=== PATIENT | male | born 1930 | race Caucasian/White ===

== ENCOUNTER → 2018-03-14 | Outpatient (CLI) | payer MEDICARE, BC ==
[~2018-03-14] MED LIST: LOVA20TA PO; RAMI10CA PO
--- NOTE | 2018-03-15 10:46 | RSPPFT ---
DATE OF PROCEDURE: 03/14/18 COMMENTS: VOLUMES DYNAMIC: FVC and FEV1 mildly reduced. STATIC: FRC, RV moderately to severely increased; TLC normal. FLOWS: FEV1% moderately reduced; FEF 25-75 moderately reduced. DIFFUSION; Severely reduced. FLOW VOLUME LOOP: Pattern of variable intrathoracic airways obstruction. IMPRESSION: Moderate obstructive ventilatory defect with significant hyperinflation and a reduction in diffusion consistent with emphysema. Minimal change post-bronchodilator noted.
--- NOTE | 2018-03-23 08:54 | MB ---
cc: Michelle Cherry MD DATE: 03/14/2018 FOLLOWUP PULMONARY NOTE HISTORY: Mr. Ray underwent bronchoscopy yesterday, did well through the procedure, but post-extubation developed respiratory difficulty and distress, had to be reintubated and mechanically ventilated overnight. Followup chest x-ray revealed scattered infiltrates, but no pneumothorax. LABORATORY DATA: White count 7200, hemoglobin 11.8, platelet count 150. Arterial blood gas last night: pH was 7.19, pCO2 of 63, pO2 99. Serum chemistries were normal other than a reduction in calcium. All cultures are pending. PHYSICAL EXAMINATION: GENERAL: Today he is awake, alert, appropriately responsive, moving all 4 extremities, in no distress but still on ventilatory support. VITAL SIGNS: 97 degrees, 90/50, pulse is 70, respirations 18, and sat is 97%. NECK: Veins are flat. LUNGS: Clear. No congestion or wheezing. HEART: Regular rhythm and no harsh murmur. EXTREMITIES: No peripheral edema. ASSESSMENT AND PLAN: Mr. Ray has done well overnight but is still mechanically ventilated. I spoke to Dr. Overton and Dr. Graves, intensivists, they will wean him today and if he can be extubated will consider whether discharge later today is possible or whether or not he will need to continue inpatient therapy for probable chronic obstructive pulmonary disease and bronchospasm resulting in respiratory failure. Aerosol therapy and corticosteroids were instituted last night. Those will be continued. Further diagnostic and/or therapeutic intervention will depend on his course today. I spoke to his son, Jaziel, this morning to update him. RMD TANIYA Woods/SIDNEY , 08:39 AM , 08:53 AM
== END ==
LOC: PHRSP 07:38
PROVIDERS: ATTEND Internal Medicine
DX: J44.9 Chronic obstructive pulmonary disease, unspecified (principal)
CPT/HCPCS: 36600; 82805; 94060; 94618; 94726; 94729

== ENCOUNTER → 2018-03-21 | Outpatient (CLI) | payer MEDICARE, BC ==
[2018-03-21 10:53] LABS: HEMATOCRIT 43.2 % (39.0-51.0); HEMOGLOBIN 14.7 GM/DL (13.0-17.0); MEAN CELL VOLUME 96.8 FL (80.0-100.0); MEAN CORPUSCULAR HGB CONC 34.1 % (32.0-36.0); MEAN PLATELET VOLUME 8.1 FL (7.0-11.0); PLATELET COUNT 212 TH/MM3 (150-450); RED BLOOD COUNT 4.46 MIL/MM3 (4.50-5.90); RED CELL DISTRIBUTION WIDTH 15.5 % (11.6-17.2); WHITE BLOOD COUNT 10.2 TH/MM3 (4.0-11.0)
[2018-03-21 11:15] LABS: BICARBONATE 30.7 MEQ/L (21.0-32.0); CALCIUM 8.8 MG/DL (8.5-10.1); CREATININE 1.17 MG/DL (0.60-1.30)
--- NOTE | 2018-03-22 14:46 | EKG ---
Date Performed: 03/21/2018 Time Performed: 10:53:04 PTAGE: 87 years EKG: Sinus rhythm with first degree AV block RIGHT BUNDLE BRANCH BLOCK ABNORMAL ECG NO PREVIOUS TRACING DOCTOR: Jasmeet Kumar Interpretating Date/Time 03/22/2018 14:46:28
== END ==
LOC: CPRE 10:27
PROVIDERS: ATTEND Internal Medicine
DX: Z01.812 Encounter for preprocedural laboratory examination (principal); Z01.810 Encounter for preprocedural cardiovascular examination; R22.2 Localized swelling, mass and lump, trunk; I44.0 Atrioventricular block, first degree; I45.10 Unspecified right bundle-branch block
CPT/HCPCS: 36415; 80048; 85027; 85610; 85730; 93005

== ENCOUNTER 2018-03-22 11:24 | Inpatient (IN) | payer MEDICARE, BC ==
--- NOTE | 2018-03-21 11:34 | MB ---
cc: Michelle Cherry MD, Ryan R MD DATE: 03/22/2018 REASON FOR ADMISSION: Outpatient bronchoscopy being scheduled for next week. HISTORY OF PRESENT ILLNESS: Mr. Ray is an 87-year-old white male, a lifelong smoker who presented with right shoulder pain and a CT scan revealed a possible endobronchial lesion in the right upper lobe with adjacent soft tissue density. The patient has smoked a pack of cigarettes a day his entire adult life, currently smoking about 10 a day, trying to quit. He has mild dyspnea on exertion, but pulmonary functions are reasonably stable, in the range of 70% with mild COPD. He has had no hemoptysis. PAST MEDICAL HISTORY: Hypertension, abdominal aortic aneurysm being monitored. No prior ischemic heart disease or congestive heart failure and no significant prior surgeries. ALLERGIES: NONE. MEDICATIONS: Ramipril and Losartan. SOCIAL HISTORY: , lives alone, but his son is here and helps considerably. 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 Drinks 2 ounces of alcohol a day. REVIEW OF SYSTEMS: Appetite and weight have been stable. He has no chest pain. No chronic edema. No abdominal complaints or musculoskeletal pain. PHYSICAL EXAMINATION: GENERAL: Thin, white male in no distress. VITAL SIGNS: 97 degrees, 130/70, pulse 100, RR 18, saturation 94% on room air. HEENT: Sclerae are anicteric. Pharynx is clear. NECK: No adenopathy in the neck or supraclavicular region. CHEST: Clear, although diminished. HEART: Regular rhythm. No harsh murmur. EXTREMITIES: No edema or cyanosis. ASSESSMENT AND PLAN: Mr. Ray has a right hilar mass. PET-CT is positive with no mediastinal uptake, probable malignancy. RECOMMENDATIONS: I have suggested proceeding with a diagnostic bronchoscopy. I have explained the procedure to he and his son in simple terms so that they understand what it involves. We have also discussed the potential for complications including although not limited to anesthetic risk, the risk of bleeding or pneumothorax and also they understand it may not be a definitive diagnostic procedure. After thorough review, they are agreeable to proceed. Further diagnostic and/or therapeutic intervention will depend on results of this study. MD TANIYA Coe/SIDNEY , 09:20 AM , 09:41 AM
[~2018-03-22] VITALS: Ht 180.3 cm; Wt 73.4 kg
[2018-03-22] VITALS (9 sets, daily range): BP systolic 107–161; BP diastolic 55–76; PULSE 82–111; RESP 20; TEMP 97.8–98.4; O2SAT 94–99
[2018-03-22] MEDS ORDERED: SODIUM CHLORID 0.9% 500 ML IV PRN (12:00)
[2018-03-22] MEDS ORDERED: CHLORHEXIDINE GLUCONATE 2 % 1 PACK (2 CLOTHS) TOPICAL PRN (12:00)
[2018-03-22] MEDS ORDERED: METOPROLOL TARTRATE 25 MG TAB PO PRN (12:00)
[2018-03-22] MEDS ORDERED: LACTATED RINGER'S 1000 ML IV PRN (12:00)
[2018-03-22] MEDS ORDERED: POVIDONE IODINE 5% (ANTISEPSIS KIT) 4 APPLICATIONS EACH NARE PRN (12:00)
[2018-03-22] MEDS ORDERED: RESP: LIDOCAINE HCL 4% PF 5 ML NEB NEB SCH (13:15)
[2018-03-22] MEDS ORDERED: SODIUM CHLOR 0.45% 1000 ML INJ 1,000 ML IV ONE (13:15)
[2018-03-22] MEDS ORDERED: RESP: ALBUTEROL 2.5 MG/3 ML NEB (SCH) INH (13:15)
[2018-03-22] MEDS ORDERED: RESP: ALBUTEROL 2.5 MG/IPRATROPIUM 0.5 MG NEB (PRN) NEB (15:00)
[2018-03-22] MEDS ORDERED: PROPOFOL 1000 MG/100 ML INJ 100 ML ONE (15:19)
--- NOTE | 2018-03-22 15:34 | MR ---
cc: Michelle Cherry MD DATE: 03/22/2018 PROCEDURE PERFORMED: Bronchoscopy. INDICATION: Right upper lobe mass. PROCEDURE: After informed consent was obtained, the patient underwent diagnostic bronchoscopy with general anesthesia. Examination of the mid to distal trachea was normal. Examination of the left upper lobe was normal. Lower lobes were also normal, no endobronchial pathology. Examination of the right mainstem bronchus down to the takeoff of the right upper lobe was normal. Right middle and lower lobe orifices were also examined and unremarkable. Examination of the right upper lobe anterior segment was abnormal with mucosal irregularity and narrowing of the bronchus. No endobronchial mass was identifiable, but there was a very irregular mucosa. This area was washed extensively, submitted for cytology and cultures. Brushings were obtained as well for cytology and needle aspiration was obtained and several bronchial biopsies were taken and submitted for pathology. In summary, anterior segment of the right upper lobe is irregular, suspicious for malignancy. Multiple specimens are submitted for cytology, culture and routine pathology. He tolerated the procedure well. Only minimal bleeding. Being prepared for recovery. Michelle Cherry MD RSW/TL , 03:00 PM , 03:33 PM
[2018-03-22] MEDS ORDERED: NURSING INFORMATION XX SCH (15:45)
[2018-03-22] MEDS ORDERED: PROPOFOL 1000 MG/100 ML INJ 100 ML IV PRN (15:45)
[2018-03-22] MEDS ORDERED: CHLORHEXIDINE GLUCONATE 2 % 1 PACK (2 CLOTHS) TOP PRN (15:45)
[2018-03-22] MEDS: PROPOFOL 1000 MG/100 ML IV PRN (15:45)
[2018-03-22] MEDS ORDERED: DO NOT ADM ANY ANTICOAGULANT DRUGS PRN (15:45)
[2018-03-22] MEDS ORDERED: SODIUM CHLORIDE 0.9% FLUSH 10 ML FLUSH IV FLUSH PRN (15:45)
[2018-03-22] MEDS ORDERED: RESP: ALBUTEROL 2.5 MG/IPRATROPIUM 0.5 MG NEB (PRN) INH (15:45)
[2018-03-22] MEDS ORDERED: ACETAMINOPHEN 325 MG TAB PO PRN (15:45)
[2018-03-22] MEDS ORDERED: MORPHINE SULFATE 4 MG/ML INJ IV PUSH PRN (15:45)
[2018-03-22] MEDS: SODIUM CHLOR 0.9% 1000 ML INJ 1,000 ML IV SCH ×2 (16:00→20:55)
[2018-03-22] MEDS ORDERED: EPINEPHrine HCL (1:1000) 1 MG/ML VIAL E-TRACHE ONE (16:16)
--- NOTE | 2018-03-22 16:20 | RADRPT ---
EXAM DATE/TIME: 03/22/2018 15:45 [place] COMPARISON: No previous studies available for comparison. INDICATIONS : Post bronchoscopy. MEDICAL HISTORY : None. SURGICAL HISTORY : None. ENCOUNTER: Initial ACUITY: 1 day PAIN SCORE: Non-responsive. LOCATION: chest FINDINGS: Endotracheal tube in good position. Bilateral airspace disease, right greater than left. No pneumotho rax. No significant effusion. Heart size mildly enlarged. Tortuous aorta. CONCLUSION: 1. Bilateral airspace disease, right greater than left. Endotracheal tube in good position without pn eumothorax. Mj Dejesus MD on March 22, 2018 at 16:17 Board Certified Radiologist. This report was verified electronically.
--- NOTE | 2018-03-22 16:40 | HHI.HP ---
[facility] Service Critical Care Medicine Primary Care Physician Salvador Figueroa MD Admission Diagnosis Diagnosis: Travel History International Travel<30 Days: No Contact w/Intl Traveler <30 Da: No Traveled to Known Affected Are: No History of Present Illness HISTORY OF PRESENT ILLNESS: 87-year-old male was recently diagnosed with a right upper lobe mass and underwent bronchoscopy with biopsy by Dr. Cherry today. He tolerated procedure well was extubated postprocedure however required reintubation due to hypoxia and poor respiratory effort. Patient was placed back on mechanical ventilation and transferred to PACU. He is a lifelong smoker and has mild COPD per Dr. Jasmeet Cherry his barrel tester and drainer who discussed the case with me. I evaluated the patient in PACU following his arrival. Stat chest x-ray done in PACU revealed good position of ET tube with no pneumothorax noted. History was obtained by reviewing records and discussion with Dr. Cherry. PAST MEDICAL HISTORY: Hypertension, abdominal aortic aneurysm being monitored. No prior ischemic heart disease or congestive heart failure and no significant prior surgeries. ALLERGIES: NONE. MEDICATIONS: Ramipril and Losartan. SOCIAL HISTORY: , lives alone, but his son is here and helps considerably. 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 Drinks 2 ounces of alcohol a day. Review of systems: Unobtainable as patient is sedated, orally intubated on mechanical ventilation. Physical Exam Vital Signs Vital Signs Date Time Temp Pulse Resp B/P (MAP) Pulse Ox O2 Delivery O2 Flow Rate FiO2 03/22/18 15:56 94 50 03/22/18 15:35 99 03/22/18 11:47 97.8 111 20 161/76 (104) 95 03/22/18 11:44 95 Room Air Physical Exam HEENT/ Neuro: Sedated, orally intubated, Pallor present, no icterus, tongue/ mucosa moist Neck: No JVD Chest/Pulm: on mech vent, good air entry bilaterally, no wheezing or crackles CVS: S1-S2 regular, no murmur GI/abdomen: soft, nontender, bowel sounds sluggish Extremities: warm bilaterally, no edema Laboratory Laboratory Tests Test 03/22/18 15:25 03/22/18 16:06 Blood Gas Puncture Site DRAWN IN OR RT RADIAL Blood Gas Patient Temperature 98.6 98.6 Blood Gas HCO3 21 24 Blood Gas Base Excess -5.2 -3.6 Blood Gas Oxygen Saturation 97 92 Arterial Blood pH 7.21 7.19 Arterial Blood Partial Pressure CO2 55 63 Arterial Blood Partial Pressure O2 397 99 Arterial Blood Oxygen Content 19.5 18.8 Arterial Blood Carboxyhemoglobin 1.5 1.4 Arterial Blood Methemoglobin 1.2 1.4 Blood Gas Hemoglobin 13.6 14.5 Oxygen Delivery Device OR VENTILATOR Blood Gas Inspired Oxygen 100 60 Blood Gas Ventilator Setting PRVC/AC 500/15/8PEEP Date/Time Source Procedure Growth Status 03/22/18 14:37 Fluid Other Fungal Smear Pending Received 03/22/18 14:37 Fluid Other Fungal Culture Pending Received 03/22/18 14:37 Bronchial Washings Right Upper Lobe Fungal Smear Pending Received 03/22/18 14:37 Bronchial Washings Right Upper Lobe Fungal Culture Pending Received Imaging Chest x-ray portable which was personally reviewed: ET tube above gaby, increased haziness over right lung field. No pneumothorax. Well-expanded lung huizar. Caprini VTE Risk Assessment Caprini VTE Risk Assessment: Mod/High Risk (score >= 2) Caprini Risk Assessment Model Point Value = 1 Point Value = 2 Point Value = 3 Point Value = 5 Age 41-60 Minor surgery BMI > 25 kg/m2 Swollen legs Varicose veins or History of unexplained or recurrent spontaneous Oral contraceptives or hormone replacement Sepsis (< 1 month) Serious lung disease, including pneumonia (< 1 month) Abnormal pulmonary function Acute myocardial infarction Congestive heart failure (< 1 month) History of inflammatory bowel disease Medical patient at bed rest Age 61-74 Arthroscopic surgery Major open surgery (> 45 min) Laparoscopic surgery (> 45 min) Malignancy Confined to bed (> 72 hours) Immobilizing plaster cast Central venous access Age >= 75 History of VTE Family history of VTE Factor V Leiden Prothrombin [id number] Lupus anticoagulant Anticardiolipin antibodies Elevated serum homocysteine Heparin-induced thrombocytopenia Other congenital or acquired thrombophilia Stroke (< 1 month) Elective arthroplasty Hip, pelvis, or leg fracture Acute spinal cord injury (< 1 month) Prophylaxis Regimen Total Risk Factor Score Risk Level Prophylaxis Regimen 0-1 Low Early ambulation 2 Moderate Order ONE of the following: *Sequential Compression Device (SCD) *Heparin 5000 units SQ BID 3-4 Higher Order ONE of the following medications: *Heparin 5000 units SQ TID *Enoxaparin/Lovenox 40 mg SQ daily (WT < 150 kg, CrCl > 30 mL/min) *Enoxaparin/Lovenox 30 mg SQ daily (WT < 150 kg, CrCl > 10-29 mL/min) *Enoxaparin/Lovenox 30 mg SQ BID (WT < 150 kg, CrCl > 30 mL/min) AND/OR *Sequential Compression Device (SCD) 5 or more Highest Order ONE of the following medications: *Heparin 5000 units SQ TID (Preferred with Epidurals) *Enoxaparin/Lovenox 40 mg SQ daily (WT < 150 kg, CrCl > 30 mL/min) *Enoxaparin/Lovenox 30 mg SQ daily (WT < 150 kg, CrCl > 10-29 mL/min) *Enoxaparin/Lovenox 30 mg SQ BID (WT < 150 kg, CrCl > 30 mL/min) AND *Sequential Compression Device (SCD) Assessment and Plan Assessment and Plan 87-year-old male with: Right upper lobe lung mass status post bronchoscopy Acute respiratory failure on mechanical ventilation COPD Hypertension Plan: Neuro: Sedation with propofol, daily sedation medication. Follow neuro status. Cardiovascular: IV hydration. Check troponin, EKG Pulmonary: Reintubated and placed on mechanical ventilation as he failed extubation post bronchoscopy. Continue mechanical ventilation overnight. Bronchodilators. CPAP trials tomorrow morning to decide extubation. Will add Solu-Medrol 40 mg IV now and every 12 hourly. Vent bundle. GI/liver: N.p.o. for now. If not extubated tomorrow will start tube feeds. Renal/: IV hydration, strict intake output, monitor and replete electrolytes, follow BUN/creatinine. ID: No indication for antibiotics at this time. Hemonc: Follow-up biopsy from right upper lobe lung mass. Follow CBC. Endocrine: Watch for hypoglycemia, SSI for glycemic control if needed. Prophylaxis: Pepcid, SCDs. If not extubated tomorrow start subcutaneous Lovenox if okay with Dr. Cherry. Discussed with Dr. Jasmeet Cherry. Time spent on critical care excluding procedures 40 minutes Brain Corey MD March 22, 2018 16:40
[2018-03-22] MEDS: methylPREDNISolone SOD SUCC 40 MG/1 ML VIAL IV PUSH SCH ×2 (17:13→20:55)
[2018-03-22] MEDS ORDERED: SODIUM CHLOR 0.9% 250 ML INJ 250 ML IV ONE (17:15)
[2018-03-22 17:45] LABS: AUTOMATED NEUTROPHIL # 10.3 TH/MM3 (1.8-7.7); BASOPHIL % 0.1 % (0.0-2.0); EOSINOPHIL % 0.1 % (0.0-4.0); HEMATOCRIT 39.9 % (39.0-51.0); HEMOGLOBIN 13.4 GM/DL (13.0-17.0); LYMPH % 2.6 % (9.0-44.0); LYMPHOCYTE # 0.3 TH/MM3 (1.0-4.8); MEAN CELL VOLUME 98.8 FL (80.0-100.0); MEAN CORPUSCULAR HEMOGLOBIN 33.3 PG (27.0-34.0); MEAN CORPUSCULAR HGB CONC 33.7 % (32.0-36.0); MEAN PLATELET VOLUME 8.3 FL (7.0-11.0); MONO % 2.6 % (0.0-8.0); MONOCYTE # 0.3 TH/MM3 (0-0.9); NEUT % 94.6 % (16.0-70.0); PLATELET COUNT 172 TH/MM3 (150-450); RED BLOOD COUNT 4.04 MIL/MM3 (4.50-5.90); WHITE BLOOD COUNT 10.9 TH/MM3 (4.0-11.0)
[2018-03-22] MEDS ORDERED: *morphine SULFATE 8 MG/ML PERIprocedure ONLY ONE (17:50)
[2018-03-22 18:34] LABS: ALBUMIN 2.7 GM/DL (3.4-5.0); BICARBONATE 24.1 MEQ/L (21.0-32.0); CALCIUM 7.2 MG/DL (8.5-10.1); CALCIUM-PROTEIN CORRECTED 7.5 MG/DL (8.5-10.1); CREATININE 1.09 MG/DL (0.60-1.30); TOTAL BILIRUBIN ADULT 0.4 MG/DL (0.2-1.0); TOTAL PROTEIN 6.5 GM/DL (6.4-8.2); TROPONIN I 0.02 NG/ML (0.02-0.05)
[2018-03-22] MEDS: RESP: ALBUTEROL 2.5 MG/IPRATROPIUM 0.5 MG NEB (SCH) NEB ×3 (18:54→23:42)
[2018-03-22] MEDS ORDERED: SODIUM CHLOR 0.9% 1000 ML INJ 1,000 ML IV ONE (19:15)
[2018-03-22] MEDS ORDERED: DEXMEDETOMIDINE INJ 200 MCG in SODIUM CHLORIDE 0.9% INJ 50 ML IV PRN (20:45)
[2018-03-22] MEDS: SODIUM CHLORIDE 0.9% FLUSH 10 ML FLUSH IV FLUSH SCH (20:55)
[2018-03-22] MEDS: CHLORHEXIDINE 0.12% (ORAL KIT) 15 ML CUP MT SCH (20:55)
[2018-03-22] MEDS ORDERED: FAMOTIDINE 20 MG TAB TUBE SCH (21:00)
[2018-03-22] MEDS ORDERED: RESP: ALBUTEROL 2.5 MG/3 ML NEB (PRN) NEB (21:30)
[2018-03-22] MEDS: FAMOTIDINE 20 MG/2 ML VIAL IV SCH (21:54)
[2018-03-22] MEDS ORDERED: RASS Change Order XX ONE (22:00)
[2018-03-23] VITALS (13 sets, daily range): BP systolic 90–114; BP diastolic 52–70; PULSE 72–94; RESP 20–25; TEMP 97.3–98.2; O2SAT 92–100
[2018-03-23] MEDS: PROPOFOL 1000 MG/100 ML IV PRN (02:34)
[2018-03-23] MEDS: RESP: ALBUTEROL 2.5 MG/IPRATROPIUM 0.5 MG NEB (SCH) NEB ×4 (03:24→15:05)
[2018-03-23] MEDS ORDERED: CHLORHEXIDINE GLUCONATE 2 % 1 PACK (2 CLOTHS) TOP SCH (04:00)
[2018-03-23 06:31] LABS: AUTOMATED NEUTROPHIL # 6.4 TH/MM3 (1.8-7.7); BASOPHIL % 0.1 % (0.0-2.0); HEMATOCRIT 35.1 % (39.0-51.0); HEMOGLOBIN 11.8 GM/DL (13.0-17.0); LYMPH % 5.9 % (9.0-44.0); LYMPHOCYTE # 0.4 TH/MM3 (1.0-4.8); MEAN CELL VOLUME 97.8 FL (80.0-100.0); MEAN CORPUSCULAR HEMOGLOBIN 32.9 PG (27.0-34.0); MEAN CORPUSCULAR HGB CONC 33.7 % (32.0-36.0); MEAN PLATELET VOLUME 8.8 FL (7.0-11.0); MONO % 4.9 % (0.0-8.0); MONOCYTE # 0.4 TH/MM3 (0-0.9); NEUT % 89.1 % (16.0-70.0); PLATELET COUNT 150 TH/MM3 (150-450); RED BLOOD COUNT 3.59 MIL/MM3 (4.50-5.90); RED CELL DISTRIBUTION WIDTH 15.1 % (11.6-17.2); WHITE BLOOD COUNT 7.2 TH/MM3 (4.0-11.0)
[2018-03-23 07:03] LABS: ALBUMIN 2.3 GM/DL (3.4-5.0); BICARBONATE 22.3 MEQ/L (21.0-32.0); CALCIUM 7.1 MG/DL (8.5-10.1); CALCIUM-PROTEIN CORRECTED 7.8 MG/DL (8.5-10.1); CREATININE 0.95 MG/DL (0.60-1.30); TOTAL BILIRUBIN ADULT 0.4 MG/DL (0.2-1.0); TOTAL PROTEIN 5.7 GM/DL (6.4-8.2)
[2018-03-23] MEDS: CHLORHEXIDINE 0.12% (ORAL KIT) 15 ML CUP MT SCH (08:19)
--- NOTE | 2018-03-23 09:24 | EKG ---
Date Performed: 03/22/2018 Time Performed: 17:21:07 PTAGE: 87 years EKG: Sinus rhythm WITH FIRST DEGREE AV BLOCK RIGHT BUNDLE BRANCH BLOCK ABNORMAL ECG PREVIOUS TRACING : 03/21/2018 10.53 DOCTOR: Jasmeet Kumar Interpretating Date/Time 03/23/2018 09:17:39
[2018-03-23] MEDS: FAMOTIDINE 20 MG/2 ML VIAL IV SCH (10:36)
[2018-03-23] MEDS: SODIUM CHLOR 0.9% 1000 ML INJ 1,000 ML IV SCH (10:36)
[2018-03-23] MEDS: SODIUM CHLORIDE 0.9% FLUSH 10 ML FLUSH IV FLUSH SCH (10:36)
[2018-03-23] MEDS: methylPREDNISolone SOD SUCC 40 MG/1 ML VIAL IV PUSH SCH (10:36)
[2018-03-23] MEDS ORDERED: BUDESONIDE-FORMOTEROL 160/4.5 MCG INHALER INH SCH (12:45)
--- NOTE | 2018-03-23 15:55 | HHI.CCPN ---
Subjective Remarks/Hospital Course 87-year-old male was recently diagnosed with a right upper lobe mass and underwent bronchoscopy with biopsy by Dr. Cherry today. He tolerated procedure well was extubated postprocedure however required reintubation due to hypoxia and poor respiratory effort. Patient was placed back on mechanical ventilation and transferred to PACU. He is a lifelong smoker and has mild COPD per Dr. Jasmeet Cherry his tile decorator who discussed the case with me. I evaluated the patient in PACU following his arrival. Stat chest x-ray done in PACU revealed good position of ET tube with no pneumothorax noted. History was obtained by reviewing records and discussion with Dr. Cherry. 03/23: Extubated early today and breathing comfortably for several hours after. Objective Vital Signs Date Time Temp Pulse Resp B/P (MAP) Pulse Ox O2 Delivery O2 Flow Rate FiO2 03/23/18 12:35 93 03/23/18 12:00 94 03/23/18 12:00 97.3 20 114/54 (74) 03/23/18 09:40 Nasal Cannula 3.00 03/23/18 09:25 50 Intake and Output 03/23/18 03/23/18 03/24/18 08:00 16:00 00:00 Intake Total 100 ml Output Total 450 ml Balance -350 ml Result Diagram: 03/23/18 0556 03/23/18 0556 Other Results Laboratory Tests Test 03/22/18 16:06 Blood Gas Puncture Site RT RADIAL Blood Gas Patient Temperature 98.6 Blood Gas HCO3 24 mmol/L (22-26) Blood Gas Base Excess -3.6 mmol/L (-2-2) Blood Gas Oxygen Saturation 92 % (90-100) Arterial Blood pH 7.19 (7.380-7.420) Arterial Blood Partial Pressure CO2 63 mmHg (38-42) Arterial Blood Partial Pressure O2 99 mmHg (61-120) Arterial Blood Oxygen Content 18.8 Vol % (12.0-20.0) Arterial Blood Carboxyhemoglobin 1.4 % (0-4) Arterial Blood Methemoglobin 1.4 % (0-2) Blood Gas Hemoglobin 14.5 G/DL (12.0-16.0) Oxygen Delivery Device VENTILATOR Blood Gas Ventilator Setting PRVC/AC 500/15/8PEEP Blood Gas Inspired Oxygen 60 % Imaging Chest x-ray portable which was personally reviewed: ET tube above gaby, increased haziness over right lung field. No pneumothorax. Well-expanded lung huizar. Objective Remarks HEENT, no icterus, tongue/ mucosa moist Neck: No JVD, airway widely patent Chest/Pulm: Distant tones good clear sounds no wheezing CVS: S1-S2 regular, no murmur GI/abdomen: soft, nontender, bowel sounds sluggish Extremities: warm bilaterally, no edema Neuro: Appropriate interaction and orientation. A/P Assessment and Plan 87-year-old male with: Right upper lobe lung mass status post bronchoscopy Acute respiratory failure on mechanical ventilation COPD Hypertension Plan: Neuro: DC propofol, daily sedation medication. Follow neuro status. Cardiovascular: IV hydration. Pulmonary: Reintubated and placed on mechanical ventilation as he failed extubation post bronchoscopy. Extubated this morning. GI/liver: N.p.o. for now. Renal/: IV hydration, strict intake output, monitor and replete electrolytes, follow BUN/creatinine. ID: No indication for antibiotics at this time. Hemonc: Follow-up biopsy from right upper lobe lung mass. Follow CBC. Endocrine: Watch for hypoglycemia, SSI for glycemic control if needed. Prophylaxis: Pepcid, SCDs. Discussed with Dr. Jasmeet Cherry. Overall impression: He is tolerated extubation and will be discharged home later today. Roger Graves MD March 23, 2018 15:55
--- NOTE | 2018-03-23 15:56 | HHI.DS ---
Discharge Summary Admission Date March 22, 2018 at 15:48 Discharge Date: March 23, 2018 Admitting Diagnosis (1) Acute and chronic respiratory failure with hypercapnia ICD Code: J96.22 - Acute and chronic respiratory failure with hypercapnia Brief History HISTORY OF PRESENT ILLNESS: 87-year-old male was recently diagnosed with a right upper lobe mass and underwent bronchoscopy with biopsy by Dr. Cherry today. He tolerated procedure well was extubated postprocedure however required reintubation due to hypoxia and poor respiratory effort. Patient was placed back on mechanical ventilation and transferred to PACU. He is a lifelong smoker and has mild COPD per Dr. Jasmeet Cherry his sand and gravel plant operator who discussed the case with me. I evaluated the patient in PACU following his arrival. Stat chest x-ray done in PACU revealed good position of ET tube with no pneumothorax noted. History was obtained by reviewing records and discussion with Dr. Cherry. PAST MEDICAL HISTORY: Hypertension, abdominal aortic aneurysm being monitored. No prior ischemic heart disease or congestive heart failure and no significant prior surgeries. ALLERGIES: NONE. MEDICATIONS: Ramipril and Losartan. SOCIAL HISTORY: , lives alone, but his son is here and helps considerably. 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 Drinks 2 ounces of alcohol a day. Review of systems: Unobtainable as patient is sedated, orally intubated on mechanical ventilation. CBC/BMP: 03/23/18 0556 03/23/18 0556 Significant Findings Laboratory Tests Test 03/22/18 15:25 03/22/18 16:06 03/22/18 17:30 03/23/18 04:30 Blood Gas HCO3 21 mmol/L (22-26) Blood Gas Base Excess -5.2 mmol/L (-2-2) -3.6 mmol/L (-2-2) Arterial Blood pH 7.21 (7.380-7.420) 7.19 (7.380-7.420) Arterial Blood Partial Pressure CO2 55 mmHg (38-42) 63 mmHg (38-42) Arterial Blood Partial Pressure O2 397 mmHg (61-120) Red Blood Count 4.04 MIL/MM3 (4.50-5.90) Neutrophils (%) (Auto) 94.6 % (16.0-70.0) Lymphocytes (%) (Auto) 2.6 % (9.0-44.0) Neutrophils # (Auto) 10.3 TH/MM3 (1.8-7.7) Lymphocytes # (Auto) 0.3 TH/MM3 (1.0-4.8) Random Glucose 148 MG/DL (74-106) Albumin 2.7 GM/DL (3.4-5.0) Calcium Level 7.2 MG/DL (8.5-10.1) Sodium Level 135 MEQ/L (136-145) Estimat Glomerular Filtration Rate 64 ML/MIN (>89) Protein Corrected Calcium 7.5 MG/DL (8.5-10.1) Test 03/23/18 05:56 Red Blood Count 3.59 MIL/MM3 (4.50-5.90) Hemoglobin 11.8 GM/DL (13.0-17.0) Hematocrit 35.1 % (39.0-51.0) Neutrophils (%) (Auto) 89.1 % (16.0-70.0) Lymphocytes (%) (Auto) 5.9 % (9.0-44.0) Lymphocytes # (Auto) 0.4 TH/MM3 (1.0-4.8) Random Glucose 133 MG/DL (74-106) Total Protein 5.7 GM/DL (6.4-8.2) Albumin 2.3 GM/DL (3.4-5.0) Calcium Level 7.1 MG/DL (8.5-10.1) Estimat Glomerular Filtration Rate 75 ML/MIN (>89) Protein Corrected Calcium 7.8 MG/DL (8.5-10.1) Imaging CXR: Clear huizar. PE at Discharge Breathing comfortably, ambulating. Transfer Summary Home with his son today. Meds per Dr. Cherry. Hospital Course 87-year-old male was recently diagnosed with a right upper lobe mass and underwent bronchoscopy with biopsy by Dr. Cherry today. He tolerated procedure well was extubated postprocedure however required reintubation due to hypoxia and poor respiratory effort. Patient was placed back on mechanical ventilation and transferred to PACU. He is a lifelong smoker and has mild COPD per Dr. Jasmeet Cherry his sand and gravel plant operator who discussed the case with me. I evaluated the patient in PACU following his arrival. Stat chest x-ray done in PACU revealed good position of ET tube with no pneumothorax noted. History was obtained by reviewing records and discussion with Dr. Cherry. 05/09: Extubated early today and breathing comfortably for several hours after. Pt Condition on Discharge: Good Roger Graves MD March 23, 2018 15:56
== END 2018-03-23 17:49 | disposition home or self-care (01) | DRG 166 ==
LOC: HROP 11:24 → HRIP 11:27 → HROP 15:39 → HSDI 15:48 → N03A 17:55
PROVIDERS: ADMIT Internal Medicine; ATTEND Internal Medicine
PROC: 0BBC8ZX Excision of Right Upper Lung Lobe, Via Natural or Artificial Opening Endoscopic, Diagnostic (ICD-10-PCS; principal; 2018-03-22)
PROC: 5A1935Z Respiratory Ventilation, Less than 24 Consecutive Hours (ICD-10-PCS; 2018-03-22)
PROC: 0BD48ZX Extraction of Right Upper Lobe Bronchus, Via Natural or Artificial Opening Endoscopic, Diagnostic (ICD-10-PCS; 2018-03-22)
PROC: 0BH17EZ Insertion of Endotracheal Airway into Trachea, Via Natural or Artificial Opening (ICD-10-PCS; 2018-03-22)
DX: R91.8 Other nonspecific abnormal finding of lung field (principal); J96.21 Acute and chronic respiratory failure with hypoxia; J44.9 Chronic obstructive pulmonary disease, unspecified; J96.22 Acute and chronic respiratory failure with hypercapnia; F17.210 Nicotine dependence, cigarettes, uncomplicated; I10 Essential (primary) hypertension; I71.4 Abdominal aortic aneurysm, without rupture
CPT/HCPCS: 31500; 31625; 36600; 71045; 80053; 82805; 82948; 84484; 85025; 87015; 87070; 87077; 87102; 87116; 87184; 87185; 87205; 87206; 87641; 88112; 88305; 88341; 88342; 93005; 94002; 94003; 94618; 94640; 94664; J0171; J2270; J2920; J3010; J7030; J7613

== ENCOUNTER 2018-05-14 19:20 | Inpatient (IN) ==
[2018-05-15] MEDS ORDERED: Acetaminophen 325 MG Tablet PO PRN (01:07)
[2018-05-15] MEDS ORDERED: RESP: Albuterol Concentrated 2.5 MG/0.5 ML Neb NEB PRN (01:10)
[2018-05-15] MEDS ORDERED: Bisacodyl 10 MG Supp RECTAL PRN (01:14)
[2018-05-15] MEDS ORDERED: Dextrose 50% in Water 50 ML Vial IV.PUSH PRN (01:15)
[2018-05-15] MEDS ORDERED: Vancomycin Consult Pharmacy 1 EACH OTHER SCH (02:00)
[2018-05-15] MEDS: Norepinephrine Inj 16 MG in Sodium Chlor 0.9% Inj 234 ML IV.CONT PRN ×2 (03:51→03:53)
[2018-05-15] MEDS ORDERED: Chlorhexidine Gluconate 2% 1 Pack (2 Cloths) TOPICAL PRN (04:00)
[2018-05-15 05:23] LABS: Baso % (Auto) 0.1 % (0.0-2.0); Eos % (Auto) 0.1 % (0.0-4.0); Hematocrit 40.3 % (39.0-51.0); Hemoglobin 12.9 gm/dL (13.0-17.0); Lymph # (Auto) 0.4 th/mm3 (1.0-4.8); Lymph % (Auto) 5.4 % (9.0-44.0); Mean Corpuscular Hemoglobin 32.2 pg (27.0-34.0); Mean Corpuscular Volume 100.7 fL (80.0-100.0); Mean Platelet Volume 8.6 fL (7.0-11.0); Mono # (Auto) 0.1 th/mm3 (0.0-0.9); Mono % (Auto) 1.9 % (0.0-8.0); Neut # (Auto) 6.2 th/mm3 (1.8-7.7); Neut % (Auto) 92.5 % (16.0-70.0); Platelet Count 150 th/mm3 (150-450); Red Blood Count 4.01 mil/mm3 (4.50-5.90); Red Cell Distribution Width 15.6 % (11.6-17.2); White Blood Count 6.7 th/mm3 (4.0-11.0)
[2018-05-15 05:41] LABS: Activated Partial Thrombo Time 34.9 sec (24.3-30.1)
[2018-05-15 06:13] LABS: Chloride 97 meq/L (98-107); Potassium 4.9 meq/L (3.5-5.1); Sodium 128 meq/L (136-145)
[2018-05-15 06:17] LABS: Calcium 7.8 mg/dL (8.5-10.1)
[2018-05-15] MEDS: Sod Chloride 0.9% Inj 1,000 ML IV.SIG SCH ×2 (06:26→20:19)
[2018-05-15] MEDS: Chlorhexidine Gluconate 2% 1 Pack (2 Cloths) TOPICAL SCH (06:26)
[2018-05-15 06:40] LABS: Alanine Aminotransferase 15 U/L (12-78); Albumin 2.6 g/dL (3.4-5.0); Alkaline Phosphatase 60 U/L (45-117); Anion Gap 8 meq/L (5-15); Aspartate Aminotransferase 25 U/L (15-37); Blood Urea Nitrogen 33 mg/dL (7-18); Carbon Dioxide 22.8 meq/L (21.0-32.0); Glomerular Filtration Rate 58 mL/min (>89); Glucose,Random 155 mg/dL (74-106); Phosphorus 3.5 mg/dL (2.5-4.9); Total Protein 6.7 g/dL (6.4-8.2); Troponin I 0.03 ng/mL (0.02-0.05)
[2018-05-15] MEDS: Insulin NovoLIN Regular Correctional Sugar Inj SQ SCH ×4 (08:00→20:45)
[2018-05-15] MEDS: Senna/Docusate Sodium 8.6/50 MG Tablet PO SCH ×2 (10:20→20:15)
[2018-05-15 13:02] LABS: Troponin I 0.03 ng/mL (0.02-0.05)
--- NOTE | 2018-05-15 13:36 | ECHRPT ---
Indication: CHF CONCLUSIONS The left ventricular systolic function is normal with an estimated ejection fraction in the range of 55-60%. Normal left ventricular size. Wall thickness is normal. No regional wall motion abnormalities are present. mild aortic valve regurgitation. There is trace tricuspid valve regurgitation. The estimated pulmonary arterial pressure is 31 mmHg. BP: / HR: Rhythm: Sinus MEASUREMENTS (Male / Female) Normal Values Technical Quality:Poor DOPPLER TR Peak Velocity 228.0 cm/s TR Peak Gradient 20.8 mmHg Right Atrial Pressure 10.0 mmHg Pulmonary Artery Systolic Pressu 30.8 mmHg Right Ventricular Systolic Press 30.8 mmHg FINDINGS LEFT VENTRICLE The left ventricular systolic function is normal with an estimated ejection fraction in the range of 55-60%. Normal left ventricular size. Wall thickness is normal. No regional wall motion abnormalities are present. RIGHT VENTRICLE Normal right ventricular size and systolic function. LEFT ATRIUM The left atrial size is normal. RIGHT ATRIUM The right atrial size is normal. ATRIAL SEPTUM Normal atrial septal thickness without atrial level shunting by limited color doppler interrogation. AORTA The aortic root and proximal ascending aorta are normal in size on limited imaging. MITRAL VALVE Structurally normal mitral valve. No mitral valve stenosis or regurgitation. AORTIC VALVE Trileaflet aortic valve.mild aortic valve regurgitation. TRICUSPID VALVE Structurally normal tricuspid valve. There is trace tricuspid valve regurgitation. The estimated pulmonary arterial pressure is 31 mmHg. PULMONARY VALVE No pulmonary valve regurgitation or stenosis. VESSELS The inferior vena cava is normal in size. PERICARDIUM No pericardial effusion. Jasmeet Kumar MD, FACC (Electronically Signed) Final Date:15 May 2018 13:36
[2018-05-15] MEDS: Artificial Tears Opth Drops 15 ML Bottle EACH EYE SCH ×5 (16:45→21:34)
[2018-05-15] MEDS: Azithromycin Inj 500 MG in Sodium Chlor 0.9% Inj 250 ML IV.SIG SCH (20:14)
[2018-05-15] MEDS: Vancomycin Inj 1 GM/200 ML PIGGYBACK IV.SIG SCH (23:49)
[2018-05-16] MEDS: Sod Chloride 0.9% Inj 1,000 ML IV.SIG SCH ×2 (03:36→17:08)
--- NOTE | 2018-05-16 07:18 | P.HPCC ---
History of Present Illness Primary Care Physician: Salvador Figueroa MD Chief Complaint: Shortness of breath History of Present Illness: This is a 87-year-old male. Date of admission 05/14/2018. Past medical history includes COPD, did a course of the lung, AAA, glaucoma, osteoarthritis and stable AAA. 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 He has recently received radiation therapy by Dr. allen. He is followed by Dr. Cherry pulmonology. He was in the [facility] on 05/14 with acute onset of shortness of breath. He denies coughing/productive, congestion, fevers or chills. Denies chest pain. CT angiogram revealed no pulmonary embolism. Right upper lobe mass identified. Possible postobstructive pneumonia versus radiation pneumonitis. Patient receives norepinephrine drip to maintain mean atrial pressure and 65. Started on vancomycin, cefepime and azithromycin. - Diagnosis (1) Hyperlipidemia (2) Essential hypertension (3) AAA (abdominal aortic aneurysm) without rupture (4) Adenocarcinoma of lung (5) Acute and chronic respiratory failure with hypoxia (6) Tobacco use (7) COPD (chronic obstructive pulmonary disease) - Inpatient Certification If this patient has been admitted as an Inpatient: I certify that the inpatient services were ordered in accordance with Medicare regulations governing the order. This includes certification that hospital inpatient services are reasonable and necessary and in the case of services not specified as inpatient-only under 42 CFR 419.22(n), that they are appropriately provided as inpatient services in accordance to with the 2-midnight benchmark under 43 CFR 412.3(e) Estimated Total Length of Stay (Days): 5 Plans for Post Hospital Care: Not yet determined (Not yet determined) Review of Systems Constitutional: Reports chills, Reports daytime sleepiness, Reports excessive sweating, Reports fever(s), Reports lack of energy, Reports night sweats, Reports weakness, Reports weight loss, Denies anorexia, Denies weight gain Eyes: Reports blurry vision, Denies blind spots, Denies dry eyes, Denies floaters Ears, Nose, Mouth, and Throat: Denies abnormal hearing, Denies lip swelling, Denies sore throat, Denies throat swelling Cardiovascular: Reports excessive sweating, Reports shortness of breath, Denies chest pain, Denies fainting Respiratory: Reports cough, Reports excessive phlegm production, Reports shortness of breath, Denies coughing up blood, Denies pain on inspiration Gastrointestinal: Denies abdominal pain Genitourinary: Denies painful urination Musculoskeletal: Denies back pain Skin/Breast: Denies itching, Denies lesions Neurologic: Denies confusion, Denies fainting, Denies tremor(s) Psychiatric: Denies depression Endocrine: Denies increased hunger, Denies increased thirst Hematologic/Lymphatic: Denies easy bleeding, Denies easy bruising Allergic/Immunologic: Denies hives PMFSH - History History Provided By: Patient - Medical History Medical History: Medical History (Last Updated 05/16/18 @ 07:24 by Atul Kirby MD) AAA (abdominal aortic aneurysm) Adenocarcinoma of lung COPD (chronic obstructive pulmonary disease) Essential hypertension Glaucoma Normal colonoscopy Osteoporosis - Surgical History Surgical History: Surgical History (Last Updated 05/16/18 @ 07:22 by Atul Kirby MD) History of lung biopsy History of tonsillectomy and adenoidectomy - Family History Family History: Family History (Last Updated 05/16/18 @ 07:25 by Atul Kirby MD) Brother Family history of malignant neoplasm in brother - Tobacco History Second Hand Smoke Exposure: Yes Tobacco Use In Past 30 Days: No Smoking Status: Former smoker Tobacco Type: Cigarettes Packs Per Day: 1 Years Smoked: 50 - Alcohol History How Often Do You Have a Drink Containing Alcohol: Never (Used to drink daily after 2 ounces. Quit recently) Medications and Allergies Active Medications: Active Medications Acetaminophen (Tylenol) 650 mg PO Q4H PRN PRN Reason: TEMPERATURE > 101 F Hydrocodone Bitart/Acetaminophen ([place] 5/325) 1 tab PO Q4H PRN PRN Reason: PAIN SCALE 1 -5 Al Hydroxide/Mg Hydroxide (Milk Of Magnmiguelangel Liq) 30 ml PO Q12H PRN PRN Reason: Mild Constipation Albuterol (Duoneb Neb (Jenna)) 1 ampul NEB Q4HR NEB JENNA Last Admin: 05/16/18 03:20 Dose: 1 ampul Albuterol (Albuterol Concentrated Neb) 2.5 mg NEB Q2HR NEB PRN PRN Reason: SHORTNESS OF BREATH/WHEEZING Artificial Tears (Tears Naturale Opth Drops) 1 drop EACH EYE TID JENNA Last Admin: 05/15/18 21:34 Dose: 1 drop Bisacodyl (Dulcolax Supp) 10 mg RECTAL DAILY PRN PRN Reason: SEVERE CONSITIPATION Budesonide/Formoterol Fumarate (Symbicort 160/4.5 Mcg Inh) 2 puff INH BID [facility] Chlorhexidine Gluconate (Chlorhexidine 2% Cloth) 3 pack TOPICAL DAILY@0400 [facility] Stop: 05/20/18 03:59 Last Admin: 05/15/18 06:26 Dose: 3 pack Chlorhexidine Gluconate (Chlorhexidine 2% Cloth) 3 pack TOPICAL DAILY@0400 PRN PRN Reason: Extra cloth needed Stop: 05/20/18 03:59 Dextrose (D50w Vial) 50 ml IV.PUSH UNSCH PRN PRN Reason: PER HYPOGLYCEMIA PROTOCOL Glucagon (Glucagon Inj) 1 mg OTHER PRN PRN PRN Reason: for Hypoglycemia Protocol Sodium Chloride (Ns Inj) 1,000 mls @ 75 mls/hr IV.SIG .[id number] [facility] Last Admin: 05/16/18 03:36 Dose: 84 mls/hr Cefepime HCl 2,000 mg/ Sodium (Chloride) 100 mls @ 200 mls/hr IV.SIG Q12H [facility] Last Admin: 05/15/18 21:34 Dose: 200 mls/hr Vancomycin/Sodium Chloride (Vancomycin Inj) 1 gm in 200 mls @ 200 mls/hr IV.SIG DAILY@2300 [facility] Last Admin: 05/15/18 23:49 Dose: 200 mls/hr Pharmacy Profile Note (Vancomycin Consult Pharmacy) mls @ 0 mls/hr OTHER UNSCH [facility] Azithromycin 500 mg/ Sodium (Chloride) 250 mls @ 250 mls/hr IV.SIG HS [facility] Last Admin: 05/15/18 20:14 Dose: 250 mls/hr Norepinephrine Bitartrate 16 (mg/ Sodium Chloride) 250 mls @ 1.87 mls/hr IV.CONT TITRATE PRN; Protocol PRN Reason: See Protocol Last Titration: 05/16/18 06:00 Dose: 5 mcg/min, 4.68 mls/hr Insulin Human Regular (Novolin R Supplemental Scale) 0 units SQ ACHS [facility]; Protocol Last Admin: 05/15/18 20:45 Dose: Not Given Lactulose (Lactulose Liq) 30 ml PO DAILY PRN PRN Reason: SEVERE CONSITIPATION Miscellaneous Information ([facility] Ordered Lab Info) 0 each OTHER ONCE ONE Stop: 05/17/18 22:46 Morphine Sulfate (Morphine Inj) 2 mg IV.PUSH Q4H PRN PRN Reason: PAIN SCALE 6 TO 10 Ondansetron HCl (Zofran Inj) 4 mg IV.PUSH Q6H PRN PRN Reason: NAUSEA OR VOMITING Pantoprazole Sodium (Protonix) 40 mg PO DAILY [facility] Last Admin: 05/15/18 10:20 Dose: 40 mg Senna/Docusate Sodium (Teresa-Colace) 1 tab PO BID [facility] Last Admin: 05/15/18 20:15 Dose: 1 tab Sennosides (Senokot) 17.2 mg PO Q12H PRN PRN Reason: Moderate Constipation Terbutaline Sulfate (Brethine Inj) 1 mg SQ UNSCH PRN PRN Reason: For Extravasation Allergies Allergy/AdvReac Type Severity Reaction Status Date / Time No Known Allergies Allergy Unverified 03/21/18 11:07 Home Medications Medication Instructions Recorded Confirmed Type budesonide-formoterol [Symbicort] See Label Instructions .ROUTE 05/16/18 History .COMPLEX ramipril 5 mg PO DAILY 05/16/18 05/16/18 History Results - Labs CBC & Chem 7: 05/15/18 04:55 05/15/18 04:55 Labs: Cardiac Enzymes 05/15/18 Range/Units 12:35 Total Creatine Kinase 37 L (39-308) U/L Troponin I 0.03 (0.02-0.05) ng/mL - Imaging CT pulmonary angiogram CONCLUSION: 1. No evidence of pulmonary embolism. 2. Right perihilar/peribronchial mass consistent with patient's known lung carcinoma is noted. 3. Patchy infiltrates are noted within the lower lobes bilaterally consistent with probable pneumonia. 4. Central bronchiectasis is noted bilaterally. 5. Cardiomegaly and coronary artery calcifications. 6. Cholelithiasis. 7. Degenerative changes and kyphosis of the thoracic spine are noted. - ECG Prior ECG tracings: available for review Exam Vital signs: Vital Signs 05/15/18 07:30 05/15/18 07:45 05/15/18 08:00 Temperature 98.3 F Pulse Rate 80 80 104 H Respiratory Rate 28 H 27 H 35 H Blood Pressure 100/43 L 96/40 L 108/50 L Pulse Oximetry 95 96 92 L 05/15/18 08:15 05/15/18 08:19 05/15/18 08:30 Temperature Pulse Rate 96 H 111 H 76 Respiratory Rate 46 H 24 39 H Blood Pressure 108/55 L 105/47 L Pulse Oximetry 93 L 93 L 94 L 05/15/18 08:45 05/15/18 09:00 05/15/18 09:15 Temperature Pulse Rate 92 H 96 H 110 H Respiratory Rate 34 H 32 H 34 H Blood Pressure 100/45 L 101/46 L 99/40 L Pulse Oximetry 96 93 L 93 L 05/15/18 09:30 05/15/18 09:45 05/15/18 10:00 Temperature Pulse Rate 108 H 110 H 110 H Respiratory Rate 30 H 32 H 37 H Blood Pressure 105/44 L 102/40 L 103/48 L Pulse Oximetry 92 L 93 L 92 L 05/15/18 10:15 05/15/18 10:27 05/15/18 10:30 Temperature Pulse Rate 110 H 108 H 108 H Respiratory Rate 45 H 33 H 35 H Blood Pressure 90/38 L 93/39 L 99/42 L Pulse Oximetry 92 L 91 L 92 L 05/15/18 10:35 05/15/18 10:40 05/15/18 10:42 Temperature Pulse Rate 108 H 96 H Respiratory Rate 46 H 36 H Blood Pressure 106/47 L 101/50 L Pulse Oximetry 92 L 92 L 97 05/15/18 10:45 05/15/18 10:50 05/15/18 10:55 Temperature Pulse Rate 84 86 94 H Respiratory Rate 27 H 28 H 30 H Blood Pressure 106/52 L 115/49 L 112/46 L Pulse Oximetry 97 93 L 96 05/15/18 11:00 05/15/18 11:40 05/15/18 12:00 Temperature 98.1 F Pulse Rate 76 96 H Respiratory Rate 26 H 27 H Blood Pressure 108/48 L Pulse Oximetry 97 94 L 05/15/18 15:16 05/15/18 15:19 05/15/18 16:00 Temperature 98.4 F Pulse Rate 110 H 109 H 108 H Respiratory Rate 35 H 35 H 35 H Blood Pressure Pulse Oximetry 95 05/15/18 16:10 05/15/18 16:15 05/15/18 16:20 Temperature Pulse Rate 112 H 116 H 112 H Respiratory Rate 49 H 39 H 29 H Blood Pressure 116/47 L 118/50 L 101/43 L Pulse Oximetry 95 93 L 94 L 05/15/18 16:25 05/15/18 16:30 05/15/18 16:32 Temperature Pulse Rate 112 H 114 H 116 H Respiratory Rate 32 H 36 H 37 H Blood Pressure 117/47 L 91/43 L 88/46 L Pulse Oximetry 94 L 93 L 78 L 05/15/18 16:43 05/15/18 16:56 05/15/18 17:00 Temperature Pulse Rate 114 H 110 H 112 H Respiratory Rate 43 H 32 H 32 H Blood Pressure 119/52 L 113/45 L Pulse Oximetry 92 L 94 L 94 L 05/15/18 17:11 05/15/18 17:26 05/15/18 17:41 Temperature Pulse Rate 110 H 108 H 110 H Respiratory Rate 31 H 29 H 36 H Blood Pressure 92/43 L 110/44 L 100/44 L Pulse Oximetry 93 L 94 L 93 L 05/15/18 17:56 05/15/18 18:00 05/15/18 18:11 Temperature Pulse Rate 108 H 106 H 110 H Respiratory Rate 36 H 37 H 35 H Blood Pressure 103/44 L 110/43 L Pulse Oximetry 94 L 95 95 05/15/18 18:26 05/15/18 18:41 05/15/18 18:56 Temperature Pulse Rate 110 H 110 H 112 H Respiratory Rate 38 H 36 H 33 H Blood Pressure 111/45 L 121/50 L 125/50 L Pulse Oximetry 88 L 91 L 91 L 05/15/18 19:00 05/15/18 19:11 05/15/18 19:20 Temperature Pulse Rate 114 H 110 H 111 H Respiratory Rate 40 H 33 H 24 Blood Pressure 116/50 L Pulse Oximetry 91 L 91 L 05/15/18 19:26 05/15/18 19:41 05/15/18 19:56 Temperature Pulse Rate 112 H 112 H 114 H Respiratory Rate 37 H 36 H 38 H Blood Pressure 121/46 L 115/43 L 117/56 L Pulse Oximetry 91 L 91 L 92 L 05/15/18 19:59 05/15/18 20:00 05/15/18 20:11 Temperature 98.2 F Pulse Rate 114 H 114 H Respiratory Rate 39 H 37 H Blood Pressure 104/44 L Pulse Oximetry 91 L 89 L 05/15/18 20:26 05/15/18 20:41 05/15/18 20:52 Temperature 98.5 F Pulse Rate 114 H 114 H Respiratory Rate 33 H 38 H Blood Pressure 118/47 L 112/47 L Pulse Oximetry 91 L 91 L 05/15/18 20:56 05/15/18 21:00 05/15/18 21:30 Temperature Pulse Rate 110 H 110 H 112 H Respiratory Rate 36 H 36 H 54 H Blood Pressure 108/47 L 102/52 L Pulse Oximetry 91 L 92 L 93 L 05/15/18 21:35 05/15/18 22:00 05/15/18 22:30 Temperature Pulse Rate 104 H 106 H Respiratory Rate 30 H 39 H Blood Pressure 109/45 L 113/50 L Pulse Oximetry 95 97 97 05/15/18 23:00 05/15/18 23:18 05/15/18 23:30 Temperature 98.6 F Pulse Rate 104 H 107 H 108 H Respiratory Rate 32 H 24 33 H Blood Pressure 113/53 L 126/50 L Pulse Oximetry 96 99 05/16/18 00:00 05/16/18 00:05 05/16/18 00:30 Temperature Pulse Rate 118 H 114 H Respiratory Rate 44 H 44 H Blood Pressure 106/45 L 101/49 L Pulse Oximetry 92 L 95 93 L 05/16/18 01:00 05/16/18 01:30 05/16/18 02:00 Temperature Pulse Rate 114 H 112 H 106 H Respiratory Rate 34 H 29 H 30 H Blood Pressure 112/43 L 104/38 L 113/48 L Pulse Oximetry 93 L 92 L 95 05/16/18 02:30 05/16/18 03:00 05/16/18 03:30 Temperature Pulse Rate 104 H 92 H 106 H Respiratory Rate 30 H 30 H 25 H Blood Pressure 115/55 L 103/48 L 117/51 L Pulse Oximetry 95 93 L 91 L 05/16/18 04:00 05/16/18 04:30 05/16/18 05:00 Temperature Pulse Rate 106 H 106 H 108 H Respiratory Rate 39 H 44 H 43 H Blood Pressure 111/53 L 108/48 L 119/48 L Pulse Oximetry 94 L 95 96 05/16/18 05:30 05/16/18 06:00 05/16/18 06:30 Temperature Pulse Rate 106 H 106 H 108 H Respiratory Rate 34 H 29 H 38 H Blood Pressure 105/49 L 119/50 L 119/54 L Pulse Oximetry 94 L 94 L 94 L Intake & Output 05/15/18 05/16/18 05/16/18 18:59 06:59 18:59 Intake Total 1580 / 1580 620 / 620 Output Total 1100 / 1100 600 / 600 Balance 480 / 480 20 / 20 Weight 70.7 kg Intake: IV 1100 / 1100 Maxipime Inj 2,000 MG In NS Inj 100 / 100 100 ML @ 200 mls/hr IV.SIG Q12H JENNA Rx#:[id number] NS Inj 1,000 ML @ 75 mls/hr IV. 1000 / 1000 SIG .[id number] JENNA Rx#:[id number] Oral 480 / 480 620 / 620 Output: Urine 1100 / 1100 600 / 600 Other: Date of Last Bowel Movement 05/13/18 05/13/18 Narrative: GENERAL: 87-year-old male currently resting in bed in no acute distress on nonrebreather SKIN: Warm and dry. No HEAD: Atraumatic. Normocephalic. EYES: Pupils equal and round. No scleral icterus. No injection or drainage. ENT: No nasal bleeding or discharge. Mucous membranes pink and moist. NECK: Trachea midline. No JVD. CARDIOVASCULAR: Tachycardic, RR. S1, S2. No stroke without murmur RESPIRATORY: Coarse crackles appreciated throughout all lung huizar. Positive end expiratory wheezing. GASTROINTESTINAL: Abdomen soft, non-tender, nondistended. Hepatic and splenic margins not palpable. MUSCULOSKELETAL: Extremities without significant peripheral edema. No obvious deformities. NEUROLOGICAL: Awake and alert. No obvious cranial nerve deficits. Motor grossly within normal limits. Five out of 5 muscle strength in the arms and legs. Normal speech. PSYCHIATRIC: Appropriate mood and affect; insight and judgment normal. Septic Shock Reassessment Septic shock perfusion: reassessment completed Caprini VTE Risk Assessment Caprini VTE Risk Assessment: Moderate/High Risk (score >= 2) VTE Pharmacological Exception Reason: Documented Caprini Risk Assessment Model: Point Value = 1 Point Value = 2 Point Value = 3 Point Value = 5 Age 41-60 Minor surgery BMI > 25 kg/m2 Swollen legs Varicose veins or History of unexplained or recurrent spontaneous Oral contraceptives or hormone replacement Sepsis (< 1 month) Serious lung disease, including pneumonia (< 1 month) Abnormal pulmonary function Acute myocardial infarction Congestive heart failure (< 1 month) History of inflammatory bowel disease Medical patient at bed rest Age 61-74 Arthroscopic surgery Major open surgery (> 45 min) Laparoscopic surgery (> 45 min) Malignancy Confined to bed (> 72 hours) Immobilizing plaster cast Central venous access Age >= 75 History of VTE Family history of VTE Factor V Leiden Prothrombin [id number] Lupus anticoagulant Anticardiolipin antibodies Elevated serum homocysteine Heparin-induced thrombocytopenia Other congenital or acquired thrombophilia Stroke (< 1 month) Elective arthroplasty Hip, pelvis, or leg fracture Acute spinal cord injury (< 1 month) Prophylaxis Regimen: Total Risk Factor Score Risk Level Prophylaxis Regimen 0-1 Low Early ambulation 2 Moderate Order ONE of the following: *Sequential Compression Device (SCD) *Heparin 5000 units SQ BID 3-4 Higher Order ONE of the following medications: *Heparin 5000 units SQ TID *Enoxaparin/Lovenox 40 mg SQ daily (WT < 150 kg, CrCl > 30 mL/min) *Enoxaparin/Lovenox 30 mg SQ daily (WT < 150 kg, CrCl > 10-29 mL/min) *Enoxaparin/Lovenox 30 mg SQ BID (WT < 150 kg, CrCl > 30 mL/min) AND/OR *Sequential Compression Device (SCD) 5 or more Highest Order ONE of the following medications: *Heparin 5000 units SQ TID (Preferred with Epidurals) *Enoxaparin/Lovenox 40 mg SQ daily (WT < 150 kg, CrCl > 30 mL/min) *Enoxaparin/Lovenox 30 mg SQ daily (WT < 150 kg, CrCl > 10-29 mL/min) *Enoxaparin/Lovenox 30 mg SQ BID (WT < 150 kg, CrCl > 30 mL/min) AND *Sequential Compression Device (SCD) Assessment and Plan - Problem List (1) Hyperlipidemia Code(s): E78.5 - Hyperlipidemia, unspecified Status: Chronic (2) Essential hypertension Code(s): I10 - Essential (primary) hypertension Status: Acute (3) AAA (abdominal aortic aneurysm) without rupture Code(s): I71.4 - Abdominal aortic aneurysm, without rupture Status: Chronic (4) Adenocarcinoma of lung Code(s): C34.90 - Malignant neoplasm of unspecified part of unspecified bronchus or lung Status: Chronic (5) Acute and chronic respiratory failure with hypoxia Code(s): J96.21 - Acute and chronic respiratory failure with hypoxia Status: Acute (6) Tobacco use Code(s): Z72.0 - Tobacco use Status: Chronic (7) COPD (chronic obstructive pulmonary disease) Code(s): J44.9 - Chronic obstructive pulmonary disease, unspecified Status: Chronic - Assessment and Plan Plan: Neuro/Psych: Acetaminophen 650 mg by mouth every 6 hours. Fever Hydrocodone/acetaminophen 5/325 one tab every 4 hours as needed pain 1 through 5 Morphine sulfate 2 mg IV every 2 hours as needed pain 6 -10 CV: Essential hypertension Hyperlipidemia Coronary artery disease Holding home medications of ramipril 5 mill grams daily and lovastatin 10 mg daily. Resume if clinically indicated Limited 2D echocardiogram revealed ejection fraction 55%. PEEP 31 mmHg Resp: Acute hypoxemic respiratory failure Currently on nonrebreather saturations 95% Albuterol/ipratropium aerosols every 4 hours with albuterol aerosols every 2 hours as needed dyspnea Add budesonide/formoterol 160/4.5 2 puffs twice daily Consultation pulmonology/Dr. Cherry Acapella/PET every 4 hours Recheck chest x-ray today 05/16 CT pulmonary angiogram revealed no evidence of pulmonary embolism. Right perihilar/peribronchial mass consistent with patient's known lung carcinoma is noted. Patchy infiltrates are noted within the lower lobes bilaterally consistent with probable pneumonia. Central bronchiectasis is noted bilaterally. Cardiomegaly and coronary artery calcifications. Cholelithiasis. Degenerative changes and kyphosis of the thoracic spine are noted. GI: Cholelithiasis Currently on clear liquid diet Pantoprazole for GI prophylaxis Docusate sodium/senna 1 tablet twice daily for bowel regimen : No indication for [place] catheter Endo: Hyperglycemia SSI to maintain euglycemia Renal: Creatinine currently within normal limits Heme: History of adenocarcinoma the lung status post radiation therapy by Dr. Allen Macrocytic anemia Elevated PTT PET scan 03/2018 revealed 3 cm right upper lobe mass. Cytology revealed poorly differentiated adenocarcinoma. Monitor CBC daily. Follow trends ID: Likely community acquired pneumonia Day #3 vancomycin, cefepime and azithromycin Blood cultures 2 ordered. Results pending Negative urine Legionella pneumococcal antigens Influenza a and B and sputum ordered MSK: Kyphosis of thoracic spine Osteoarthritis PT evaluate and treat FEN: Hyponatremia Replace electrolytes as clinically indicated Access -Utilize peripheral IV. Central line if indicated Prophylaxis- GI -pantoprazole -DVT -SCD/enoxaparin Level 3 H&P Code Status: Full code Discussed Condition With: Patient. Care plan discussed and all questions answered. (7) COPD (chronic obstructive pulmonary disease) Qualifiers: COPD type: unspecified COPD Qualified Code(s): J44.9 - Chronic obstructive pulmonary disease, unspecified
[2018-05-16] MEDS: Insulin NovoLIN Regular Correctional Sugar Inj SQ SCH ×4 (08:00→21:13)
[2018-05-16 08:11] LABS: Potassium 4.8 meq/L (3.5-5.1)
[2018-05-16 08:14] LABS: Calcium 7.7 mg/dL (8.5-10.1)
[2018-05-16 08:15] LABS: Carbon Dioxide 25.1 meq/L (21.0-32.0); Magnesium 1.9 mg/dL (1.5-2.5)
[2018-05-16 08:18] LABS: Phosphorus 2.7 mg/dL (2.5-4.9)
[2018-05-16 08:40] LABS: Eos % (Auto) 0.6 % (0.0-4.0); Hematocrit 37.2 % (39.0-51.0); Hemoglobin 12.3 gm/dL (13.0-17.0); Lymph # (Auto) 0.3 th/mm3 (1.0-4.8); Lymph % (Auto) 3.8 % (9.0-44.0); Mean Corpuscular Hemoglobin 32.8 pg (27.0-34.0); Mean Corpuscular Volume 99.3 fL (80.0-100.0); Mean Platelet Volume 8.5 fL (7.0-11.0); Mono # (Auto) 0.5 th/mm3 (0.0-0.9); Mono % (Auto) 7.5 % (0.0-8.0); Neut # (Auto) 6.2 th/mm3 (1.8-7.7); Neut % (Auto) 88.1 % (16.0-70.0); Platelet Count 179 th/mm3 (150-450); Red Blood Count 3.75 mil/mm3 (4.50-5.90); Red Cell Distribution Width 15.8 % (11.6-17.2)
[2018-05-16] MEDS ORDERED: Acetaminophen 325 MG Tablet PO PRN (09:00)
[2018-05-16] MEDS: Budesonide-Formoterol 160/4.5 MCG 6 GM Inhaler INH SCH ×2 (09:11→22:01)
[2018-05-16] MEDS: Artificial Tears Opth Drops 15 ML Bottle EACH EYE SCH ×3 (09:11→18:05)
--- NOTE | 2018-05-16 09:20 | XR ---
EXAM DATE: 05/16/2018 9:07 AM EDT AGE/SEX: 87 years / Male INDICATIONS: Central line placement. CLINICAL DATA: This is the patient's subsequent encounter. Patient reports that signs and symptoms h ave been present for 1 day and indicates a pain score of 0/10. MEDICAL/SURGICAL HISTORY: None. None. COMPARISON: [facility], CHEST SINGLE AP, 05/14/2018. . FINDINGS: Interval placement left IJ central line with tip in the proximal SVC. No pneumothorax. Redemonstratio n of pleural parenchymal opacities in the right lower lung zone. Remainder of exam is unchanged CONCLUSION: 1. Left IJ central line tip in the proximal SVC without pneumothorax. 2. 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 Electronically signed by: Mauricio Bowie MD 05/16/2018 9:19 AM EDT
[2018-05-16] MEDS: Senna/Docusate Sodium 8.6/50 MG Tablet PO SCH ×2 (10:39→22:01)
[2018-05-16] MEDS ORDERED: Succinylcholine Inj 200 MG/10 ML Vial ONE (12:28)
[2018-05-16] MEDS ORDERED: Etomidate Inj 20 MG/10 ML Ampul IV.PUSH ONE (12:29)
[2018-05-16] MEDS ORDERED: Propofol Inj 500 MG/50 ML Vial ONE (12:31)
[2018-05-16] MEDS: Propofol 1000 mg/100 ml Inj 1,000 MG/100 ML BOTTLE IV.CONT PRN ×2 (12:40→23:16)
--- NOTE | 2018-05-16 13:48 | XR ---
EXAM DATE: 05/16/2018 1:42 PM EDT AGE/SEX: 87 years / Male INDICATIONS: Post intubation. CLINICAL DATA: This is the patient's subsequent encounter. Patient reports that signs and symptoms h ave been present for 3 days and indicates a pain score of Nonresponsive. MEDICAL/SURGICAL HISTORY: Non-responsive. Non-responsive. COMPARISON: [facility], CHEST 1V SINGLE AP, 05/16/2018. . FINDINGS: Stable left IJ central line. Interval placement ETT with tip at the level of the clavicles. Persisten t moderate right pleural effusion and associated right lower lobe airspace disease. Mild left lower l obe airspace disease. Cardiomegaly saw contours are stable. Remainder of the exam is unchanged. CONCLUSION: 1. ETT in good position. 2. Persistent moderate left pleural effusion and associated airspace consolidation in the right lowe r lung zone. 3. Mild left lower lung zone airspace disease, likely atelectasis. Electronically signed by: Mauricio Bowie MD 05/16/2018 1:47 PM EDT
--- NOTE | 2018-05-16 13:50 | ED ---
HPI Related Data Home Medications Medication Instructions Recorded Confirmed budesonide-formoterol [Symbicort] See Label Instructions .ROUTE 05/16/18 .COMPLEX ramipril 5 mg PO DAILY 05/16/18 05/16/18 Allergies Allergy/AdvReac Type Severity Reaction Status Date / Time No Known Allergies Allergy Unverified 03/21/18 11:07 Review of Systems Neurologic Denies abnormal hearing, Denies confusion, Denies syncope, Denies tremor(s) and Reports weakness [facility] Medical History Medical History AAA (abdominal aortic aneurysm) (Acute) Adenocarcinoma of lung (Acute) COPD (chronic obstructive pulmonary disease) (Acute) Essential hypertension (Acute) Glaucoma (Acute) Normal colonoscopy (Acute) Osteoporosis (Acute) Surgical History Surgical History History of lung biopsy (Acute) History of tonsillectomy and adenoidectomy (Acute) Family History Family History Brother Family history of malignant neoplasm in brother Social History Social History Second Hand Smoke Exposure: Yes Smoking Status: Former smoker Tobacco Type: Cigarettes Packs Per Day: 1 Cigarettes Per Day: 20.0 Years Smoked: 50 Pack-Years: 50.00 How Often Do You Have a Drink Containing Alcohol: Never (Used to drink daily after 2 ounces. Quit recently) Procedures Intubation Time Out Performed: No (emergency intubation) Sedative: etomidate Mg Given: 20 Laryngoscope: Connolly (3) ET Tube Size: 8 ET Tube Uncuffed: No Tube Secured Depth (cm): 23 Tube Secured Location: lips Tube Placement Confirmation: visualized tube passing through cords, equal breath sounds bilaterally, no breath sounds over epigastrium and confirmation by capnometry Patient Tolerated Procedure: well Intubation Complications: none Additional Comments: I was asked to leave the emergency room and go up to intensive care to intubate this patient by skin lifter bacon Dr. Kirby Course Initial Documented Vital Signs Pulse Oximetry 95 05/15/18 00:00 Last Documented Vital Signs Temperature 98.0 F 05/16/18 07:00 Pulse Rate 132 H 05/16/18 11:00 Respiratory Rate 27 H 05/16/18 12:45 Blood Pressure 130/54 L 05/16/18 11:00 Pulse Oximetry 96 05/16/18 12:45 Medical Decision Making Lab Data Result diagrams: 05/16/18 07:39 05/16/18 07:39 Lab Results 05/14/18 05/14/18 05/14/18 Range/Units 19:20 19:20 19:20 CBC w Diff WBC (4.0-11.0) TH/MM3 RBC (4.50-5.90) MIL/MM3 Hgb (13.0-17.0) GM/DL Hct (39.0-51.0) % MCV (80.0-100.0) FL MCH (27.0-34.0) PG MCHC (32.0-36.0) % RDW (11.6-17.2) % Plt Count (150-450) TH/MM3 MPV (7.0-11.0) FL Neut % (Auto) (16.0-70.0) % Lymph % (Auto) (9.0-44.0) % [place] % (Auto) (0.0-8.0) % Eos % (Auto) (0.0-4.0) % Baso % (Auto) (0.0-2.0) % Neut # (Auto) (1.8-7.7) TH/MM3 Lymph # (Auto) (1.0-4.8) TH/MM3 [place] # (Auto) (0-0.9) TH/MM3 Eos # (Auto) (0-0.4) TH/MM3 Baso # (Auto) (0-0.2) TH/MM3 CBC Comment WBC Differential PT 10.0 (9.8-11.6) SEC INR 1.0 RATIO APTT 33.4 H (24.3-30.1) SEC Puncture Site Patient Temperature HCO3 (22-26) mmol/L Base Excess (-2-2) mmol/L O2 Saturation (90-100) % ABG pH (7.380-7.420) ABG pCO2 (38-42) mmHG ABG pO2 (61-120) mmHG ABG O2 Content (12.0-20.0) Vol % ABG Carboxyhemoglobin (0-4) % ABG Methemoglobin (0-2) % Hemoglobin (12.0-16.0) G/DL O2 Delivery Device Liter Flow L/M Sodium 125 L (136-145) MEQ/L Potassium 4.9 (3.5-5.1) MEQ/L Chloride 90 L (98-107) MEQ/L Carbon Dioxide 25.4 (21.0-32.0) MEQ/L Anion Gap 10 (5-15) MEQ/L BUN 36 H (7-18) MG/DL Creatinine 1.50 H (0.60-1.30) MG/DL Estimated GFR 44 L (>89) ML/MIN POC Glucose (68-110) mg/dl Random Glucose 119 H (74-106) MG/DL Osmolality (275-295) mosm/kg Lactic Acid (0.4-2.0) mmol/L Uric Acid (2.6-7.2) MG/DL Calcium 8.4 L (8.5-10.1) MG/DL Phosphorus (2.5-4.9) mg/dL Magnesium (1.5-2.5) mg/dL Total Bilirubin 0.3 (0.2-1.0) MG/DL AST 30 (15-37) U/L ALT 17 (12-78) U/L Alkaline Phosphatase 75 (45-117) U/L Total Creatine Kinase (39-308) U/L Troponin I (0.02-0.05) ng/mL B-Natriuretic Peptide 233 H (0-100) PG/ML Total Protein 7.8 (6.4-8.2) GM/DL Albumin 3.2 L (3.4-5.0) GM/DL TSH (0.358-3.740) uIU/mL Urine Osmolality (300-1300) mosm/kg Ur Random Sodium meq/L 05/14/18 05/14/18 05/14/18 Range/Units 19:20 19:20 19:34 CBC w Diff WBC 6.6 (4.0-11.0) TH/MM3 RBC 4.01 L (4.50-5.90) MIL/MM3 Hgb 13.5 (13.0-17.0) GM/DL Hct 40.0 (39.0-51.0) % MCV 99.7 (80.0-100.0) FL MCH 33.6 (27.0-34.0) PG MCHC 33.7 (32.0-36.0) % RDW 15.7 (11.6-17.2) % Plt Count 160 (150-450) TH/MM3 MPV 8.6 (7.0-11.0) FL Neut % (Auto) 70.9 H (16.0-70.0) % Lymph % (Auto) 17.2 (9.0-44.0) % [place] % (Auto) 11.1 H (0.0-8.0) % Eos % (Auto) 0.4 (0.0-4.0) % Baso % (Auto) 0.4 (0.0-2.0) % Neut # (Auto) 4.8 (1.8-7.7) TH/MM3 Lymph # (Auto) 1.1 (1.0-4.8) TH/MM3 [place] # (Auto) 0.7 (0-0.9) TH/MM3 Eos # (Auto) 0.0 (0-0.4) TH/MM3 Baso # (Auto) 0.0 (0-0.2) TH/MM3 CBC Comment DIFF FINAL WBC Differential PT (9.8-11.6) SEC INR RATIO APTT (24.3-30.1) SEC Puncture Site RT RADIAL Patient Temperature 98.6 HCO3 22 (22-26) mmol/L Base Excess -2.0 (-2-2) mmol/L O2 Saturation 89 L* (90-100) % ABG pH 7.37 L (7.380-7.420) ABG pCO2 39 (38-42) mmHG ABG pO2 65 (61-120) mmHG ABG O2 Content 16.7 (12.0-20.0) Vol % ABG Carboxyhemoglobin 1.6 (0-4) % ABG Methemoglobin 1.0 (0-2) % Hemoglobin 13.3 (12.0-16.0) G/DL O2 Delivery Device NRM Liter Flow 15 L/M Sodium (136-145) MEQ/L Potassium (3.5-5.1) MEQ/L Chloride (98-107) MEQ/L Carbon Dioxide (21.0-32.0) MEQ/L Anion Gap (5-15) MEQ/L BUN (7-18) MG/DL Creatinine (0.60-1.30) MG/DL Estimated GFR (>89) ML/MIN POC Glucose (68-110) mg/dl Random Glucose (74-106) MG/DL Osmolality (275-295) mosm/kg Lactic Acid (0.4-2.0) mmol/L Uric Acid 5.7 (2.6-7.2) MG/DL Calcium (8.5-10.1) MG/DL Phosphorus (2.5-4.9) mg/dL Magnesium (1.5-2.5) mg/dL Total Bilirubin (0.2-1.0) MG/DL AST (15-37) U/L ALT (12-78) U/L Alkaline Phosphatase (45-117) U/L Total Creatine Kinase (39-308) U/L Troponin I (0.02-0.05) ng/mL B-Natriuretic Peptide (0-100) PG/ML Total Protein (6.4-8.2) GM/DL Albumin (3.4-5.0) GM/DL TSH (0.358-3.740) uIU/mL Urine Osmolality (300-1300) mosm/kg Ur Random Sodium meq/L 05/14/18 05/15/18 05/15/18 Range/Units 19:45 04:55 04:55 CBC w Diff Auto diff final WBC 6.7 (4.0-11.0) TH/MM3 RBC 4.01 L (4.50-5.90) MIL/MM3 Hgb 12.9 L (13.0-17.0) GM/DL Hct 40.3 (39.0-51.0) % MCV 100.7 H (80.0-100.0) FL MCH 32.2 (27.0-34.0) PG MCHC 32.0 (32.0-36.0) % RDW 15.6 (11.6-17.2) % Plt Count 150 (150-450) TH/MM3 MPV 8.6 (7.0-11.0) FL Neut % (Auto) 92.5 H (16.0-70.0) % Lymph % (Auto) 5.4 L (9.0-44.0) % [place] % (Auto) 1.9 (0.0-8.0) % Eos % (Auto) 0.1 (0.0-4.0) % Baso % (Auto) 0.1 (0.0-2.0) % Neut # (Auto) 6.2 (1.8-7.7) TH/MM3 Lymph # (Auto) 0.4 L (1.0-4.8) TH/MM3 [place] # (Auto) 0.1 (0-0.9) TH/MM3 Eos # (Auto) 0.0 (0-0.4) TH/MM3 Baso # (Auto) 0.0 (0-0.2) TH/MM3 CBC Comment WBC Differential . PT 10.0 (9.8-11.6) SEC INR 1.0 RATIO APTT 34.9 H (24.3-30.1) SEC Puncture Site Patient Temperature HCO3 (22-26) mmol/L Base Excess (-2-2) mmol/L O2 Saturation (90-100) % ABG pH (7.380-7.420) ABG pCO2 (38-42) mmHG ABG pO2 (61-120) mmHG ABG O2 Content (12.0-20.0) Vol % ABG Carboxyhemoglobin (0-4) % ABG Methemoglobin (0-2) % Hemoglobin (12.0-16.0) G/DL O2 Delivery Device Liter Flow L/M Sodium (136-145) MEQ/L Potassium (3.5-5.1) MEQ/L Chloride (98-107) MEQ/L Carbon Dioxide (21.0-32.0) MEQ/L Anion Gap (5-15) MEQ/L BUN (7-18) MG/DL Creatinine (0.60-1.30) MG/DL Estimated GFR (>89) ML/MIN POC Glucose (68-110) mg/dl Random Glucose (74-106) MG/DL Osmolality (275-295) mosm/kg Lactic Acid 1.6 (0.4-2.0) mmol/L Uric Acid (2.6-7.2) MG/DL Calcium (8.5-10.1) MG/DL Phosphorus (2.5-4.9) mg/dL Magnesium (1.5-2.5) mg/dL Total Bilirubin (0.2-1.0) MG/DL AST (15-37) U/L ALT (12-78) U/L Alkaline Phosphatase (45-117) U/L Total Creatine Kinase (39-308) U/L Troponin I (0.02-0.05) ng/mL B-Natriuretic Peptide (0-100) PG/ML Total Protein (6.4-8.2) GM/DL Albumin (3.4-5.0) GM/DL TSH (0.358-3.740) uIU/mL Urine Osmolality (300-1300) mosm/kg Ur Random Sodium meq/L 05/15/18 05/15/18 05/15/18 Range/Units 04:55 04:55 12:07 CBC w Diff WBC (4.0-11.0) TH/MM3 RBC (4.50-5.90) MIL/MM3 Hgb (13.0-17.0) GM/DL Hct (39.0-51.0) % MCV (80.0-100.0) FL MCH (27.0-34.0) PG MCHC (32.0-36.0) % RDW (11.6-17.2) % Plt Count (150-450) TH/MM3 MPV (7.0-11.0) FL Neut % (Auto) (16.0-70.0) % Lymph % (Auto) (9.0-44.0) % [place] % (Auto) (0.0-8.0) % Eos % (Auto) (0.0-4.0) % Baso % (Auto) (0.0-2.0) % Neut # (Auto) (1.8-7.7) TH/MM3 Lymph # (Auto) (1.0-4.8) TH/MM3 [place] # (Auto) (0-0.9) TH/MM3 Eos # (Auto) (0-0.4) TH/MM3 Baso # (Auto) (0-0.2) TH/MM3 CBC Comment WBC Differential PT (9.8-11.6) SEC INR RATIO APTT (24.3-30.1) SEC Puncture Site Patient Temperature HCO3 (22-26) mmol/L Base Excess (-2-2) mmol/L O2 Saturation (90-100) % ABG pH (7.380-7.420) ABG pCO2 (38-42) mmHG ABG pO2 (61-120) mmHG ABG O2 Content (12.0-20.0) Vol % ABG Carboxyhemoglobin (0-4) % ABG Methemoglobin (0-2) % Hemoglobin (12.0-16.0) G/DL O2 Delivery Device Liter Flow L/M Sodium 128 L (136-145) MEQ/L Potassium 4.9 (3.5-5.1) MEQ/L Chloride 97 L (98-107) MEQ/L Carbon Dioxide 22.8 (21.0-32.0) MEQ/L Anion Gap 8 (5-15) MEQ/L BUN 33 H (7-18) MG/DL Creatinine 1.20 (0.60-1.30) MG/DL Estimated GFR 58 L (>89) ML/MIN POC Glucose 205 H (68-110) mg/dl Random Glucose 155 H (74-106) MG/DL Osmolality 282 (275-295) mosm/kg Lactic Acid 1.4 (0.4-2.0) mmol/L Uric Acid (2.6-7.2) MG/DL Calcium 7.8 L (8.5-10.1) MG/DL Phosphorus 3.5 (2.5-4.9) mg/dL Magnesium (1.5-2.5) mg/dL Total Bilirubin 0.3 (0.2-1.0) MG/DL AST 25 (15-37) U/L ALT 15 (12-78) U/L Alkaline Phosphatase 60 (45-117) U/L Total Creatine Kinase (39-308) U/L Troponin I 0.03 (0.02-0.05) ng/mL B-Natriuretic Peptide (0-100) PG/ML Total Protein 6.7 (6.4-8.2) GM/DL Albumin 2.6 L (3.4-5.0) GM/DL TSH 1.060 (0.358-3.740) uIU/mL Urine Osmolality (300-1300) mosm/kg Ur Random Sodium meq/L 05/15/18 05/15/18 05/15/18 Range/Units 12:35 17:01 19:30 CBC w Diff WBC (4.0-11.0) TH/MM3 RBC (4.50-5.90) MIL/MM3 Hgb (13.0-17.0) GM/DL Hct (39.0-51.0) % MCV (80.0-100.0) FL MCH (27.0-34.0) PG MCHC (32.0-36.0) % RDW (11.6-17.2) % Plt Count (150-450) TH/MM3 MPV (7.0-11.0) FL Neut % (Auto) (16.0-70.0) % Lymph % (Auto) (9.0-44.0) % [place] % (Auto) (0.0-8.0) % Eos % (Auto) (0.0-4.0) % Baso % (Auto) (0.0-2.0) % Neut # (Auto) (1.8-7.7) TH/MM3 Lymph # (Auto) (1.0-4.8) TH/MM3 [place] # (Auto) (0-0.9) TH/MM3 Eos # (Auto) (0-0.4) TH/MM3 Baso # (Auto) (0-0.2) TH/MM3 CBC Comment WBC Differential PT (9.8-11.6) SEC INR RATIO APTT (24.3-30.1) SEC Puncture Site Patient Temperature HCO3 (22-26) mmol/L Base Excess (-2-2) mmol/L O2 Saturation (90-100) % ABG pH (7.380-7.420) ABG pCO2 (38-42) mmHG ABG pO2 (61-120) mmHG ABG O2 Content (12.0-20.0) Vol % ABG Carboxyhemoglobin (0-4) % ABG Methemoglobin (0-2) % Hemoglobin (12.0-16.0) G/DL O2 Delivery Device Liter Flow L/M Sodium (136-145) MEQ/L Potassium (3.5-5.1) MEQ/L Chloride (98-107) MEQ/L Carbon Dioxide (21.0-32.0) MEQ/L Anion Gap (5-15) MEQ/L BUN (7-18) MG/DL Creatinine (0.60-1.30) MG/DL Estimated GFR (>89) ML/MIN POC Glucose 222 H (68-110) mg/dl Random Glucose (74-106) MG/DL Osmolality (275-295) mosm/kg Lactic Acid (0.4-2.0) mmol/L Uric Acid (2.6-7.2) MG/DL Calcium (8.5-10.1) MG/DL Phosphorus (2.5-4.9) mg/dL Magnesium (1.5-2.5) mg/dL Total Bilirubin (0.2-1.0) MG/DL AST (15-37) U/L ALT (12-78) U/L Alkaline Phosphatase (45-117) U/L Total Creatine Kinase 37 L (39-308) U/L Troponin I 0.03 (0.02-0.05) ng/mL B-Natriuretic Peptide (0-100) PG/ML Total Protein (6.4-8.2) GM/DL Albumin (3.4-5.0) GM/DL TSH (0.358-3.740) uIU/mL Urine Osmolality (300-1300) mosm/kg Ur Random Sodium 39 meq/L 05/15/18 05/15/18 05/16/18 Range/Units 19:30 20:42 07:39 CBC w Diff Auto diff final WBC 7.0 (4.0-11.0) TH/MM3 RBC 3.75 L (4.50-5.90) MIL/MM3 Hgb 12.3 L (13.0-17.0) GM/DL Hct 37.2 L (39.0-51.0) % MCV 99.3 (80.0-100.0) FL MCH 32.8 (27.0-34.0) PG MCHC 33.0 (32.0-36.0) % RDW 15.8 (11.6-17.2) % Plt Count 179 (150-450) TH/MM3 MPV 8.5 (7.0-11.0) FL Neut % (Auto) 88.1 H (16.0-70.0) % Lymph % (Auto) 3.8 L (9.0-44.0) % [place] % (Auto) 7.5 (0.0-8.0) % Eos % (Auto) 0.6 (0.0-4.0) % Baso % (Auto) 0.0 (0.0-2.0) % Neut # (Auto) 6.2 (1.8-7.7) TH/MM3 Lymph # (Auto) 0.3 L (1.0-4.8) TH/MM3 [place] # (Auto) 0.5 (0-0.9) TH/MM3 Eos # (Auto) 0.0 (0-0.4) TH/MM3 Baso # (Auto) 0.0 (0-0.2) TH/MM3 CBC Comment WBC Differential . PT (9.8-11.6) SEC INR RATIO APTT (24.3-30.1) SEC Puncture Site Patient Temperature HCO3 (22-26) mmol/L Base Excess (-2-2) mmol/L O2 Saturation (90-100) % ABG pH (7.380-7.420) ABG pCO2 (38-42) mmHG ABG pO2 (61-120) mmHG ABG O2 Content (12.0-20.0) Vol % ABG Carboxyhemoglobin (0-4) % ABG Methemoglobin (0-2) % Hemoglobin (12.0-16.0) G/DL O2 Delivery Device Liter Flow L/M Sodium (136-145) MEQ/L Potassium (3.5-5.1) MEQ/L Chloride (98-107) MEQ/L Carbon Dioxide (21.0-32.0) MEQ/L Anion Gap (5-15) MEQ/L BUN (7-18) MG/DL Creatinine (0.60-1.30) MG/DL Estimated GFR (>89) ML/MIN POC Glucose 138 H (68-110) mg/dl Random Glucose (74-106) MG/DL Osmolality (275-295) mosm/kg Lactic Acid (0.4-2.0) mmol/L Uric Acid (2.6-7.2) MG/DL Calcium (8.5-10.1) MG/DL Phosphorus (2.5-4.9) mg/dL Magnesium (1.5-2.5) mg/dL Total Bilirubin (0.2-1.0) MG/DL AST (15-37) U/L ALT (12-78) U/L Alkaline Phosphatase (45-117) U/L Total Creatine Kinase (39-308) U/L Troponin I (0.02-0.05) ng/mL B-Natriuretic Peptide (0-100) PG/ML Total Protein (6.4-8.2) GM/DL Albumin (3.4-5.0) GM/DL TSH (0.358-3.740) uIU/mL Urine Osmolality 488 (300-1300) mosm/kg Ur Random Sodium meq/L 05/16/18 05/16/18 05/16/18 Range/Units 07:39 07:39 07:39 CBC w Diff WBC (4.0-11.0) TH/MM3 RBC (4.50-5.90) MIL/MM3 Hgb (13.0-17.0) GM/DL Hct (39.0-51.0) % MCV (80.0-100.0) FL MCH (27.0-34.0) PG MCHC (32.0-36.0) % RDW (11.6-17.2) % Plt Count (150-450) TH/MM3 MPV (7.0-11.0) FL Neut % (Auto) (16.0-70.0) % Lymph % (Auto) (9.0-44.0) % [place] % (Auto) (0.0-8.0) % Eos % (Auto) (0.0-4.0) % Baso % (Auto) (0.0-2.0) % Neut # (Auto) (1.8-7.7) TH/MM3 Lymph # (Auto) (1.0-4.8) TH/MM3 [place] # (Auto) (0-0.9) TH/MM3 Eos # (Auto) (0-0.4) TH/MM3 Baso # (Auto) (0-0.2) TH/MM3 CBC Comment WBC Differential PT (9.8-11.6) SEC INR RATIO APTT (24.3-30.1) SEC Puncture Site Patient Temperature HCO3 (22-26) mmol/L Base Excess (-2-2) mmol/L O2 Saturation (90-100) % ABG pH (7.380-7.420) ABG pCO2 (38-42) mmHG ABG pO2 (61-120) mmHG ABG O2 Content (12.0-20.0) Vol % ABG Carboxyhemoglobin (0-4) % ABG Methemoglobin (0-2) % Hemoglobin (12.0-16.0) G/DL O2 Delivery Device Liter Flow L/M Sodium 134 L (136-145) MEQ/L Potassium 4.8 (3.5-5.1) MEQ/L Chloride 101 (98-107) MEQ/L Carbon Dioxide 25.1 (21.0-32.0) MEQ/L Anion Gap 8 (5-15) MEQ/L BUN 25 H (7-18) MG/DL Creatinine 0.99 (0.60-1.30) MG/DL Estimated GFR 72 L (>89) ML/MIN POC Glucose (68-110) mg/dl Random Glucose 115 H (74-106) MG/DL Osmolality (275-295) mosm/kg Lactic Acid 1.3 (0.4-2.0) mmol/L Uric Acid (2.6-7.2) MG/DL Calcium 7.7 L (8.5-10.1) MG/DL Phosphorus 2.7 (2.5-4.9) mg/dL Magnesium 1.9 (1.5-2.5) mg/dL Total Bilirubin (0.2-1.0) MG/DL AST (15-37) U/L ALT (12-78) U/L Alkaline Phosphatase (45-117) U/L Total Creatine Kinase (39-308) U/L Troponin I Less than 0.02 L (0.02-0.05) ng/mL B-Natriuretic Peptide (0-100) PG/ML Total Protein (6.4-8.2) GM/DL Albumin (3.4-5.0) GM/DL TSH (0.358-3.740) uIU/mL Urine Osmolality (300-1300) mosm/kg Ur Random Sodium meq/L Imaging Data Radiologist's impression: ITS Impressions Chest X-Ray 05/16/18 00:00 CONCLUSION: 1. Left IJ central line tip in the proximal SVC without pneumothorax. 2. 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 Discharge Plan Physicians Team ED Provider: Vargas Marin Primary Care Provider: Salvador Figueroa Attending Provider: Atul Kirby Status ED Status: Admitted Observation Patient
--- NOTE | 2018-05-16 14:09 | ED ---
Procedures Intubation Time Out Performed: No Sedative: etomidate Mg Given: 20 Laryngoscope: Connolly ET Tube Size: 8 ET Tube Uncuffed: No Tube Secured Depth (cm): 23 Tube Secured Location: lips Tube Placement Confirmation: visualized tube passing through cords, equal breath sounds bilaterally and no breath sounds over epigastrium Patient Tolerated Procedure: well Intubation Complications: none Additional Comments: I was asked to leave the emergency department and go up to intensive care to intubate this patient by swimming instructor Dr. Kirby. I explained the procedure at length to the patient and he agreed. It was done as in the above note without complications. Intensive care nurse is starting propofol sedation and ordering a postintubation chest x-ray and will touch base with swimming instructor for further orders.
[2018-05-16 14:59] LABS: ABG Base Excess -2.1 mmol/L (-2-2); ABG PCO2 45 mmHg (38-42); ABG PO2 101 mmHg (61-120)
[2018-05-16] MEDS: Chlorhexidine Gluconate 2% 1 Pack (2 Cloths) TOPICAL SCH (15:20)
[2018-05-16] MEDS ORDERED: Oral Hygiene Kit OROPHARYNG SCH (16:00)
[2018-05-16] MEDS: Pantoprazole Inj 40 MG Vial IV.PUSH SCH (17:08)
[2018-05-16] MEDS: Norepinephrine Inj 16 MG in Sodium Chlor 0.9% Inj 234 ML IV.CONT PRN (17:08)
--- NOTE | 2018-05-16 17:49 | P.DIET ---
Nutritional Evaluation Type of nutrition evaluation: initial Nutrition consult regarding: Tube Feeding [place] [facility] [place] - [place] Shortness of Breath - Objective % IBW: 94 Body Weight Used for Calculations: Actual Energy Needs - Lower Range (kCal/kg): 25 Energy Needs - Upper Range (kCal/kg): 30 Lower Limit kCal/kg (kCals): 1,768 Upper Limit kCal/kg (kCals): 2,121 Lower Limit Protein Factor (Grams per Kg): 1.1 Upper Limit Protein Factor (Grams per Kg): 1.4 Lower Protein Needs (Protein): 78 Upper Protein Needs (Protein): 99 Dietitian Reviewed in Medical Record: Curent medications, Intake & Output, Labs , Medical history Objective Comments: PMH: AAA, Adenocarcinoma lung, 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 Rec TF'ing w/ Jevity 1.5 @ 35ml/ hr, increase 10ml Q 4-hr, as tolerated, to goal rate 55ml/hr to offer 1980 kcal , 84.2g Protein and 103ml free water. Propofol provides some additional kcals( 1.1 kcal per ml)when running. Dietitian following. Recommendations: 1.Rec TF'ing w/ Jevity 1.5 @ 35ml/hr, increase 10ml Q 4-hr, as tolerated, to goal rate 55ml/hr 2. Propofol provides some additional kcals(1.1 kcal per ml)when running 3.Dietitian following Dietitian to Monitor: Lab values, Electrolytes, Glucose level, Intake & Output, Tube feeding tolerance, Weight change, Diet advancement, Medical course
[2018-05-16] MEDS ORDERED: Cathflo Activase Inj 2 MG Vial I-ARTERIAL ONE (18:00)
[2018-05-16] MEDS: Oral Hygiene Kit OROPHARYNG SCH (18:04)
[2018-05-16] MEDS ORDERED: Chlorhexidine 0.12% Oral Kit 15 ML UDC OROPHARYNG SCH (20:00)
[2018-05-16] MEDS: Morphine Inj 4 MG/ML Vial IV.PUSH PRN (21:02)
[2018-05-16] MEDS: Vasopressin Inj 40 UNIT in Dextrose 5% in Water Inj 98 ML IV.CONT SCH ×2 (21:18)
[2018-05-16] MEDS: Azithromycin Inj 500 MG in Sodium Chlor 0.9% Inj 250 ML IV.SIG SCH (21:55)
[2018-05-16] MEDS: Chlorhexidine 0.12% Oral Kit 15 ML UDC OROPHARYNG SCH (21:55)
[2018-05-16] MEDS ORDERED: Sod Chloride 0.9% Inj 1,000 ML IV.SIG SCH (22:00)
[2018-05-16] MEDS: fentaNYL 10 mcg/mL Premix Drip 2,500 MCG/250 ML BAG IV.SIG PRN (22:06)
[2018-05-16] MEDS: Vancomycin Inj 1 GM/200 ML PIGGYBACK IV.SIG SCH (23:07)
[2018-05-17] MEDS: Oral Hygiene Kit OROPHARYNG SCH ×4 (02:19→17:33)
[2018-05-17] MEDS ORDERED: Chlorhexidine Gluconate 2% 1 Pack (2 Cloths) TOPICAL PRN (04:00)
[2018-05-17 04:57] LABS: Baso % (Auto) 0.4 % (0.0-2.0); Hematocrit 39.5 % (39.0-51.0); Hemoglobin 13.2 gm/dL (13.0-17.0); Lymph # (Auto) 0.7 th/mm3 (1.0-4.8); Lymph % (Auto) 8.7 % (9.0-44.0); Mean Corpuscular HGB Conc 33.5 % (32.0-36.0); Mean Corpuscular Hemoglobin 33.3 pg (27.0-34.0); Mean Corpuscular Volume 99.6 fL (80.0-100.0); Mean Platelet Volume 8.9 fL (7.0-11.0); Mono # (Auto) 0.4 th/mm3 (0.0-0.9); Mono % (Auto) 4.5 % (0.0-8.0); Neut # (Auto) 7.1 th/mm3 (1.8-7.7); Neut % (Auto) 86.4 % (16.0-70.0); Platelet Count 162 th/mm3 (150-450); Red Blood Count 3.97 mil/mm3 (4.50-5.90); Red Cell Distribution Width 16.3 % (11.6-17.2); White Blood Count 8.2 th/mm3 (4.0-11.0)
[2018-05-17 05:06] LABS: Potassium 4.8 meq/L (3.5-5.1)
[2018-05-17 05:18] LABS: Calcium 6.9 mg/dL (8.5-10.1); Magnesium 1.8 mg/dL (1.5-2.5); Phosphorus 2.5 mg/dL (2.5-4.9)
[2018-05-17] MEDS: Chlorhexidine Gluconate 2% 1 Pack (2 Cloths) TOPICAL SCH (05:21)
[2018-05-17 05:40] LABS: Total Protein 5.6 g/dL (6.4-8.2)
--- NOTE | 2018-05-17 06:18 | XR ---
EXAM DATE: 05/17/2018 6:12 AM EDT AGE/SEX: 87 years / Male INDICATIONS: Shortness of breath. CLINICAL DATA: This is the patient's subsequent encounter. Patient reports that signs and symptoms h ave been present for 4 - 6 days and indicates a pain score of Nonresponsive. MEDICAL/SURGICAL HISTORY: Non-responsive. Non-responsive. COMPARISON: [facility], CHEST 1V SINGLE AP, 05/16/2018. . FINDINGS: Endotracheal tube tip well above the gaby. Left internal jugular catheter tip at the origin of the superior vena cava. Gastric tube traverses the [id number]. Persistent right pleural effusion and c entral lung infiltrate. Increasing interstitial infiltrate in the mid left lung and increasing opacit y at the left lung base, now with most delineation the left hemidiaphragm. CONCLUSION: Increasing right pleural effusion. Persistent consolidation right lung and increasing infiltrates in the left lung. Electronically signed by: Usama Guzmán MD 05/17/2018 6:17 AM EDT
[2018-05-17] MEDS: Norepinephrine Inj 16 MG in Sodium Chlor 0.9% Inj 234 ML IV.CONT PRN ×2 (06:38→18:49)
[2018-05-17] MEDS: Sod Chloride 0.9% Inj 1,000 ML IV.SIG SCH ×2 (06:39→19:20)
--- NOTE | 2018-05-17 09:45 | MB ---
cc: Aaron Douglass MD DATE: 05/16/2018 REQUESTING PHYSICIAN: Dr. Kirby REASON FOR CONSULTATION: Respiratory failure. HISTORY OF PRESENT ILLNESS: Mr. Ray is a pleasant 87-year-old male with history of CA of the lung, adenocarcinoma, poorly differentiated. He has received three radiation treatments by Dr. Doe, he is suppose to go for a fourth treatment. The patient developed shortness of breath. He came to the hospital. He was initially on BiPAP this morning, started desaturating and he was hypotensive. He was on Levophed, he was intubated. Currently, he is on PRVC FiO2 of 80%. He is on Levophed and is sedated with Diprivan. He had a workup done. His WBC count is 7.2, hemoglobin 12.3, hematocrit , MCV , platelet count . His INR is 1.20. Blood gas pH 7.37, pCO2 of , pO2 on 100%. PAST MEDICAL HISTORY: Significant for history of adenocarcinoma of the lung, COPD, abdominal aortic aneurysm, hyperlipidemia, chronic respiratory failure, history of nicotine use. FAMILY HISTORY: . MEDICATIONS: He is currently on acetaminophen and hydrocodone, albuterol nebulizer treatment, Zithromax 5 mg a day, Symbicort twice a day, cefepime 2 grams q. 12 hours, vancomycin IV, Diprivan for sedation and Levophed 12 mcg, Protonix 40 mg a day. ALLERGIES: NO KNOWN DRUG ALLERGIES. SOCIAL HISTORY: . PHYSICAL EXAMINATION: GENERAL: Elderly male, on ventilator. He is sedated. He is on Diprivan and he is on Levophed. VITAL SIGNS: Blood pressure 84/74, heart rate 97, respirations 28. HEENT: Pupils are equal and reactive to light. He is orally intubated. NECK: Supple. JVP not raised. CHEST: Equal air entry bilaterally. No rhonchi. IMPRESSION: 1. Hypoxic respiratory failure. 2. Sepsis. 3. Carcinoma of the lung. 4. Chronic obstructive pulmonary disease. 5. History of abdominal aortic aneurysm repair. PLAN: The patient on ventilator, PRVC with FiO2 80%. He is on Levophed. We will add vasopressin. Continue vancomycin, cefepime, Zithromax, continue aerosol treatment. Monitor his cultures. Further treatment will depend on the course in the hospital. Thank you Dr. Kirby for this consult. MD WEN Gabriel/JOEL , 08:27 PM , 09:30 PM
[2018-05-17] MEDS: Senna/Docusate Sodium 8.6/50 MG Tablet PO SCH ×2 (09:50→20:55)
[2018-05-17] MEDS: Chlorhexidine 0.12% Oral Kit 15 ML UDC OROPHARYNG SCH ×2 (09:53→20:54)
[2018-05-17] MEDS ORDERED: Midazolam 50 MG/50 ML Inj 50 MG/50 ML BAG IV.CONT PRN (10:13)
[2018-05-17] MEDS: Vasopressin Inj 40 UNIT in Dextrose 5% in Water Inj 98 ML IV.CONT SCH ×2 (10:25)
[2018-05-17] MEDS: Artificial Tears Opth Drops 15 ML Bottle EACH EYE SCH ×3 (10:30→18:49)
[2018-05-17] MEDS: Insulin NovoLIN Regular Correctional Sugar Inj SQ SCH ×4 (10:30→22:51)
[2018-05-17] MEDS: Budesonide-Formoterol 160/4.5 MCG 6 GM Inhaler INH SCH ×2 (10:30→20:56)
[2018-05-17] MEDS: Midazolam 50 MG/50 ML Inj 50 MG/50 ML BAG IV.CONT PRN (10:33)
--- NOTE | 2018-05-17 12:34 | ECG ---
Date Performed: 05/16/2018 Time Performed: 12:27:29 PTAGE: 87 years EKG: SINUS TACHYCARDIA RIGHT BUNDLE BRANCH BLOCK FIRST DEGREE AV BLOCK Since the previous tracin g, no significant change noted ABNORMAL ECG PREVIOUS TRACING : 05/14/2018 19.31 DOCTOR: Blake Ledesma Interpretating Date/Time 05/17/2018 12:32:30
--- NOTE | 2018-05-17 12:56 | P.PNCC ---
Subjective Subjective Remarks/Hospital Course: 05/16: This is a 87-year-old male. Date of admission 05/14/2018. Past medical history includes COPD, did a course of the lung, AAA, glaucoma, osteoarthritis and stable AAA. 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 He has recently received radiation therapy by Dr. allen. He is followed by Dr. Cherry pulmonology. [facility] with acute onset of shortness of breath. He denies coughing/productive, congestion, fevers or chills. Denies chest pain. CT angiogram revealed no pulmonary embolism. Right upper lobe mass identified. Possible postobstructive pneumonia versus radiation pneumonitis. Patient receives norepinephrine drip to maintain mean atrial pressure and 65. Started on vancomycin, cefepime and azithromycin. 05/17: Remains sedated, orally intubated on mechanical ventilation. On Levophed/ vasopressin for pressor support. Objective Vital Signs / I&O: Vital Signs 05/16/18 13:00 05/16/18 14:00 05/16/18 15:00 Temperature Pulse Rate 130 H 120 H 116 H Respiratory Rate 35 H 32 H 32 H Blood Pressure 89/59 L 98/50 L 108/57 L Pulse Oximetry 86 L 97 100 05/16/18 16:00 05/16/18 16:08 05/16/18 16:25 Temperature 99.4 F Pulse Rate 114 H 113 H Respiratory Rate 30 H 24 33 H Blood Pressure 91/50 L Pulse Oximetry 99 05/16/18 17:00 05/16/18 17:45 05/16/18 18:00 Temperature 102.2 F H Pulse Rate 120 H 118 H 114 H Respiratory Rate 37 H 39 H Blood Pressure 110/54 L 103/74 93/58 L Pulse Oximetry 100 97 97 05/16/18 18:15 05/16/18 18:30 05/16/18 18:45 Temperature Pulse Rate 110 H 108 H 106 H Respiratory Rate 34 H 31 H 32 H Blood Pressure 79/44 L 89/51 L 86/48 L Pulse Oximetry 97 97 97 05/16/18 19:00 05/16/18 19:15 05/16/18 19:30 Temperature Pulse Rate 104 H 102 H 92 H Respiratory Rate 31 H 30 H 35 H Blood Pressure 85/47 L 87/49 L 77/47 L Pulse Oximetry 97 97 97 05/16/18 19:32 05/16/18 19:35 05/16/18 19:45 Temperature Pulse Rate 82 82 82 Respiratory Rate 31 H 30 H 32 H Blood Pressure 94/49 L 89/44 L Pulse Oximetry 95 98 94 L 05/16/18 20:00 05/16/18 20:02 05/16/18 20:04 Temperature Pulse Rate 90 92 H 82 Respiratory Rate 28 H 31 H 32 H Blood Pressure 93/37 L 77/40 L 91/40 L Pulse Oximetry 95 95 96 05/16/18 20:15 05/16/18 20:30 05/16/18 20:45 Temperature Pulse Rate 92 H 80 74 Respiratory Rate 31 H 30 H 30 H Blood Pressure 84/35 L 82/41 L 84/35 L Pulse Oximetry 96 97 97 05/16/18 20:49 05/16/18 21:00 05/16/18 21:15 Temperature Pulse Rate 76 108 H 68 Respiratory Rate 31 H 35 H 30 H Blood Pressure 82/43 L 115/54 L 99/37 L Pulse Oximetry 98 82 L 100 05/16/18 21:30 05/16/18 21:34 05/16/18 21:45 Temperature Pulse Rate 68 68 68 Respiratory Rate 27 H 28 H 27 H Blood Pressure 97/39 L 94/38 L 109/37 L Pulse Oximetry 100 100 100 05/16/18 22:00 05/16/18 22:15 05/16/18 22:30 Temperature Pulse Rate 70 72 72 Respiratory Rate 19 21 20 Blood Pressure 123/45 L 121/44 L 96/55 L Pulse Oximetry 100 100 100 05/16/18 22:45 05/16/18 22:50 05/16/18 23:00 Temperature Pulse Rate 74 74 Respiratory Rate 20 18 18 Blood Pressure 84/38 L 102/45 L Pulse Oximetry 100 95 100 05/16/18 23:13 05/16/18 23:15 05/16/18 23:30 Temperature Pulse Rate 81 80 72 Respiratory Rate 18 18 17 Blood Pressure 101/40 L 112/42 L Pulse Oximetry 96 95 05/16/18 23:45 05/17/18 00:00 05/17/18 00:15 Temperature 97.5 F L 98 F Pulse Rate 72 74 68 Respiratory Rate 18 19 19 Blood Pressure 119/39 L 126/42 L 130/40 L Pulse Oximetry 94 L 95 95 05/17/18 00:30 05/17/18 00:45 05/17/18 01:00 Temperature Pulse Rate 62 68 60 Respiratory Rate 20 21 19 Blood Pressure 129/37 L 133/34 L 101/41 L Pulse Oximetry 95 95 97 05/17/18 01:15 05/17/18 01:30 05/17/18 01:45 Temperature Pulse Rate 74 74 74 Respiratory Rate 25 H 27 H 24 Blood Pressure 133/38 L 134/47 L 133/38 L Pulse Oximetry 96 96 95 05/17/18 01:52 05/17/18 02:00 05/17/18 02:15 Temperature Pulse Rate 76 82 Respiratory Rate 22 32 H 20 Blood Pressure 140/44 L 142/45 H Pulse Oximetry 96 95 94 L 05/17/18 02:30 05/17/18 02:45 05/17/18 03:00 Temperature Pulse Rate 76 80 80 Respiratory Rate 21 21 20 Blood Pressure 127/42 L 131/47 L 122/51 L Pulse Oximetry 94 L 94 L 94 L 05/17/18 03:15 05/17/18 03:20 05/17/18 03:30 Temperature Pulse Rate 74 80 78 Respiratory Rate 43 H 20 26 H Blood Pressure 118/44 L 123/43 L Pulse Oximetry 94 L 95 05/17/18 03:45 05/17/18 04:00 05/17/18 04:15 Temperature Pulse Rate 72 80 78 Respiratory Rate 22 40 H 39 H Blood Pressure 123/43 L 126/47 L 125/47 L Pulse Oximetry 94 L 94 L 94 L 05/17/18 04:40 05/17/18 04:44 05/17/18 05:00 Temperature 97.8 F Pulse Rate 70 72 72 Respiratory Rate 24 23 20 Blood Pressure 115/51 L 112/38 L Pulse Oximetry 95 95 95 05/17/18 05:02 05/17/18 05:17 05/17/18 05:32 Temperature Pulse Rate 72 78 78 Respiratory Rate 21 20 19 Blood Pressure 119/41 L 116/41 L 123/39 L Pulse Oximetry 95 96 96 05/17/18 05:47 05/17/18 06:00 05/17/18 06:02 Temperature Pulse Rate 82 88 88 Respiratory Rate 18 18 18 Blood Pressure 123/42 L 124/45 L Pulse Oximetry 96 96 96 05/17/18 06:17 05/17/18 06:32 05/17/18 06:47 Temperature Pulse Rate 78 80 80 Respiratory Rate 19 18 21 Blood Pressure 137/50 L 137/44 L 133/50 L Pulse Oximetry 96 96 94 L 05/17/18 07:00 05/17/18 07:02 05/17/18 07:17 Temperature Pulse Rate 84 78 70 Respiratory Rate 28 H 25 H 21 Blood Pressure 125/41 L 109/50 L Pulse Oximetry 95 95 94 L 05/17/18 07:43 05/17/18 10:59 05/17/18 11:03 Temperature Pulse Rate 70 79 Respiratory Rate 20 26 H 26 H Blood Pressure Pulse Oximetry 93 L 94 L Intake & Output 05/16/18 05/17/18 05/17/18 18:59 06:59 18:59 Intake Total 3873 / 3873 1297 / 1297 650 / 650 Output Total 1450 / 1450 550 / 550 Balance 2423 / 2423 747 / 747 650 / 650 Weight 77.2 kg Intake: IV 3753 / 3753 1297 / 1297 650 / 650 Levophed Inj 16 MG In NS Inj 260 / 260 240 / 240 234 ML @ 2 MCG/MIN 1.87 mls/hr IV.CONT TITRATE PRN Rx#: [id number] Diprivan 1000 mg/100 ml Inj 1, 70 / 70 30 / 30 000 mg In 100 ml @ 5 MCG/KG/MIN 2.121 mls/hr IV.CONT TITRATE PRN Rx#:[id number] Pitressin Inj 40 UNIT In D5W 100 / 100 Inj 98 ML @ 0.04 UNITS/MIN 6 mls/hr IV.CONT CONT DECLAN Rx#: [id number] Azithromycin Inj 500 MG In NS 250 / 250 250 / 250 Inj 250 ML @ 250 mls/hr IV.SIG HS DECLAN Rx#:[id number] Maxipime Inj 2,000 MG In NS Inj 100 / 100 100 / 100 100 / 100 100 ML @ 200 mls/hr IV.SIG Q12H DECLAN Rx#:[id number] LR 1000 mL Inj 1,000 ML @ Wide 2000 / 1999 Open IV.SIG BOLUS ONE Rx#: [id number] NS Inj 1,000 ML @ 75 mls/hr IV. 1073 / 1073 927 / 927 SIG .[id number] [facility] Rx#:[id number] Vancomycin Inj 1 gm In 200 ml @ 200 / 200 200 mls/hr IV.SIG DAILY@2300 [facility] Rx#:[id number] Oral 120 / 120 Output: Urine 1200 / 1200 450 / 450 Urine Amount (Catheter) 250 / 250 Indwelling Urethral Catheter 250 / 250 Gastric Drainage 0 / 0 100 / 100 Oral 0 / 0 100 / 100 Other: Date of Last Bowel Movement 05/13/18 05/13/18 Result Diagrams: 05/17/18 04:25 05/17/18 04:25 Imaging: ITS Impressions Chest X-Ray 05/16/18 00:00 CONCLUSION: 1. Left IJ central line tip in the proximal SVC without pneumothorax. 2. 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 Chest X-Ray 05/16/18 13:04 CONCLUSION: 1. ETT in good position. 2. Persistent moderate left pleural effusion and associated airspace consolidation in the right lower lung zone. 3. Mild left lower lung zone airspace disease, likely atelectasis. Chest X-Ray 05/17/18 06:00 CONCLUSION: Increasing right pleural effusion. Persistent consolidation right lung and increasing infiltrates in the left lung. Objective Remarks: HEENT/ Neuro: Sedated, orally intubated, Pallor present, no icterus, tongue/ mucosa moist Neck: No JVD Chest/Pulm: on mech vent, good air entry bilaterally, scattered rhonchi bilaterally, no wheezing or crackles CVS: S1-S2 regular, no murmur GI/abdomen: soft, nontender, bowel sounds sluggish Extremities: warm bilaterally, bilateral edema Assessment and Plan - Problem List (1) Hyperlipidemia Code(s): E78.5 - Hyperlipidemia, unspecified Status: Chronic (2) Essential hypertension Code(s): I10 - Essential (primary) hypertension Status: Acute (3) AAA (abdominal aortic aneurysm) without rupture Code(s): I71.4 - Abdominal aortic aneurysm, without rupture Status: Chronic (4) Adenocarcinoma of lung Code(s): C34.90 - Malignant neoplasm of unspecified part of unspecified bronchus or lung Status: Chronic (5) Acute and chronic respiratory failure with hypoxia Code(s): J96.21 - Acute and chronic respiratory failure with hypoxia Status: Acute (6) Tobacco use Code(s): Z72.0 - Tobacco use Status: Chronic (7) COPD (chronic obstructive pulmonary disease) Code(s): J44.9 - Chronic obstructive pulmonary disease, unspecified Status: Chronic - Assessment and Plan Plan: Neuro/Psych: Sedation while intubated. Daily sedation vacation. Starting Versed and will attempt titrating off propofol in view of hypotension requiring pressors. Continue fentanyl gtt. Acetaminophen 650 mg by mouth every 6 hours. Fever Hydrocodone/acetaminophen 5/325 one tab every 4 hours as needed pain 1 through 5 Morphine sulfate 2 mg IV every 2 hours as needed pain 6 -10 CV: Essential hypertension Hyperlipidemia Coronary artery disease Holding home medications of ramipril 5 mill grams daily and lovastatin 10 mg daily. Resume if clinically indicated Limited 2D echocardiogram revealed ejection fraction 55%. PEEP 31 mmHg Resp: Acute hypoxemic respiratory failure Intubated and placed on mechanical ventilation on 05/16 Albuterol/ipratropium aerosols every 4 hours with albuterol aerosols every 2 hours as needed dyspnea Add budesonide/formoterol 160/4.5 2 puffs twice daily Consultation pulmonology/Dr. Cherry CT pulmonary angiogram revealed no evidence of pulmonary embolism. Right perihilar/peribronchial mass consistent with patient's known lung carcinoma is noted. Patchy infiltrates are noted within the lower lobes bilaterally consistent with probable pneumonia. Central bronchiectasis is noted bilaterally. Cardiomegaly and coronary artery calcifications. Cholelithiasis. Degenerative changes and kyphosis of the thoracic spine are noted. GI: Cholelithiasis Tube feeds of Jevity 1.5 starting at 20 cc an hour. If pressor requirement decreases will consider advancing to goal tomorrow. Pantoprazole for GI prophylaxis Docusate sodium/senna 1 tablet twice daily for bowel regimen : No indication for [place] catheter Endo: Hyperglycemia SSI to maintain euglycemia Renal: Creatinine currently within normal limits Heme: History of adenocarcinoma the lung status post radiation therapy by Dr. Allen Macrocytic anemia Elevated PTT PET scan 03/2018 revealed 3 cm right upper lobe mass. Cytology revealed poorly differentiated adenocarcinoma. Monitor CBC daily. Follow trends ID: Likely community acquired pneumonia Day #4 vancomycin, cefepime and azithromycin Blood cultures 2 ordered. Results pending Negative urine Legionella pneumococcal antigens Influenza a and B and sputum ordered MSK: Kyphosis of thoracic spine Osteoarthritis PT evaluate and treat FEN: Hyponatremia Replace electrolytes as clinically indicated Access -Central line placed 05/16 Prophylaxis- GI -pantoprazole -DVT -SCD/enoxaparin Extensive discussion with patient's son regarding current clinical status and plan of care and he voiced understanding. Encouraged to decide regarding CODE STATUS. We will consult palliative care to assist with deciding goals of therapy. Condition critical Time spent on critical care excluding procedures 45 minutes (7) COPD (chronic obstructive pulmonary disease) Qualifiers: COPD type: unspecified COPD Qualified Code(s): J44.9 - Chronic obstructive pulmonary disease, unspecified
--- NOTE | 2018-05-17 14:47 | P.CONPAL ---
Consult Service: Palliative Care . Requesting Physician: Brain Corey Reason for Consult: a. To assist with evaluation and management of symptoms including: Dyspnea b. To assist medical decision maker(s) with: better understanding of current medical conditions; weighing benefits/burdens of medical treatment options; making medical treatment decisions. Primary Care Provider: Salvador Figueroa MD . History of Present Illness History of Present Illness: Mr. Ray is an 87 year old male who presented to [facility] on 05/14/2018 with shortness of breath that began that morning. 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 No evidence of metastatic disease. He has been receiving radiation therapy; he had his 3rd of 5 treatments on 05/13/[address] Doe. He is followed by Dr. Cherry, pulmonology. Patient has a past medical history that is significant for COPD, hypertension, AAA, CHF and osteoporosis. Additional diagnostic data: * Vital signs: Pulse: 113, respirations 28, BP 116/46, oxygen saturation 91% on 13 L via non-rebreather and temperature 98.1 * WBC: 6.6, hemoglobin 13.5, hematocrit 40.0, platelets 160, neutrophils 70.9% * Sodium: 125, potassium 4.9, chloride 90, glucose 119, calcium 8.4 * BUN: 36, creatinine 1.50, GFR 44 * Lactic acid: 1.6 * Uric acid: 5.7 * Total bilirubin: 0.3, AST 30, ALT 17, alkaline phosphatase 75 * BNP: 233 * Total protein: 7.8, albumin 3.2 * PT: 10.0, INR 1.0, APTT 33.4 * Blood cultures growing Staphylococcus epidermidis * Chest x-ray showing patchy infiltrates within the right mid and lower lung field consistent with probable pneumonia. Small right pleural effusion. * CTA pulmonary angiogram showed no evidence of pulmonary embolism; right perihilar/peribronchial mass consistent with patient's known lung carcinoma; patchy infiltrates are noted within the lower lobes bilaterally consistent with probable pneumonia; central bronchiectasis is noted bilaterally; cardiomegaly and coronary artery calcifications; cholelithiasis; degenerative changes and kyphosis of the thoracic spine are noted. While in the ED, the patient received a breathing treatment, solu-medrol 25 mg IV and empiric antibiotics (vancomycin, cefepime and zithromax) as well as a 500 cc normal saline bolus. Patient was admitted for further evaluation and medical management of pneumonia and COPD exacerbation. Pulmonology was consulted. Patient was initially on BiPAP when he became hypoxemic and hypotensive, requiring emergent intubation. Patient was started on a Levophed and vasopressin for pressor support. Follow-up chest x-ray on 05/17/2018 showing increasing right pleural effusion. Persistent consolidation in the right lung and increasing infiltrates in the left lung. Palliative Care was consulted to assist with symptom management and to discuss with the family the benefits and burdens of his current illnesses and the options regarding future care. Patient seen and assessed in the intensive care unit, room 8405. He remains sedated on fentanyl and versed and intubated on mechanical ventilation. FiO2 40%; PEEP 5. Remains on Levophed and vasopressin for pressor support. Function/Cognitive Trajectory: Patient was recently diagnosed with adenocarcinoma of the lungs in Mar, 2018. He is receiving radiation therapy with Dr. Doe. Patient reported shortness of breath, cough, excessive phlegm production. He denies hemoptysis. Prior to this hospitalization the patient was walking with a 4 wheeled walker with a seat. He did not require home oxygen. Approximately 2 weeks ago he was driving his car. Patient's son reports since being diagnosed the patient has had increased weakness and decreased appetite. Review of Systems Constitutional: Reports fatigue, Reports lack of energy, Reports other ( Decreased appetite) Cardiovascular: Reports shortness of breath, Reports shortness of breath with activity Respiratory: Reports cough, Reports excessive phlegm production, Reports shortness of breath, Reports shortness of breath with activity Gastrointestinal: Denies abdominal pain, Denies change in stools Allergic/Immunologic: Denies GI upset with certain foods, Denies hives, Denies itchy eyes, Denies lip swelling, Denies seasonal runny nose, Denies throat swelling, Denies tongue swelling, Denies wheezing, Denies other PMFSH - History History Provided By: Patient - Medical History Medical History: Medical History (Last Updated 05/17/18 @ 14:06 by ARTHUR Macdonald) AAA (abdominal aortic aneurysm) Adenocarcinoma of lung CHF (congestive heart failure) COPD (chronic obstructive pulmonary disease) Essential hypertension Glaucoma Normal colonoscopy Osteoporosis - Surgical History Surgical History: Surgical History (Last Reviewed 05/25/18 @ 07:10 by Jeanie Bhakta) History of lung biopsy History of tonsillectomy and adenoidectomy - Family History Family History: Family History (Last Updated 05/17/18 @ 16:14 by ARTHUR Macdonald) Brother Family history of malignant neoplasm in brother Sister Cervical cancer Myocardial infarction - Tobacco History Second Hand Smoke Exposure: Yes Tobacco Use In Past 30 Days: No (Former smoker; [id number] smoking history) Smoking Status: Former smoker Tobacco Type: Cigarettes Packs Per Day: 1 Years Smoked: 50 years: 50 - Alcohol History How Often Do You Have a Drink Containing Alcohol: Never (Used to drink daily after 2 ounces. Quit recently) - Substance Use History Substance History: No History of Abuse Medications and Allergies Allergies Allergy/AdvReac Type Severity Reaction Status Date / Time No Known Allergies Allergy Unverified 03/21/18 11:07 Home Medications Medication Instructions Recorded Confirmed Type budesonide-formoterol [Symbicort] 2 inhalation INHALATION DAILY 05/16/18 History ramipril 5 mg PO DAILY 05/16/18 05/18/18 History Active Medications: Active Medications Acetaminophen (Tylenol) 650 mg PO Q6H PRN PRN Reason: FEVER Last Admin: 05/16/18 17:40 Dose: 650 mg Hydrocodone Bitart/Acetaminophen ([place] 5/325) 1 tab PO Q4H PRN PRN Reason: PAIN SCALE 1 -5 Al Hydroxide/Mg Hydroxide (Milk Of Shaun Wilkins) 30 ml PO Q12H PRN PRN Reason: Mild Constipation Albuterol (Duoneb Neb (Jenna)) 1 ampul NEB Q4HR NEB JENNA Last Admin: 05/17/18 10:57 Dose: 1 ampul Albuterol (Albuterol Concentrated Neb) 2.5 mg NEB Q2HR NEB PRN PRN Reason: SHORTNESS OF BREATH/WHEEZING Artificial Tears (Tears Naturale Opth Drops) 1 drop EACH EYE TID JENNA Last Admin: 05/17/18 10:30 Dose: Not Given Bisacodyl (Dulcolax Supp) 10 mg RECTAL DAILY PRN PRN Reason: SEVERE CONSITIPATION Budesonide/Formoterol Fumarate (Symbicort 160/4.5 Mcg Inh) 2 puff INH BID JENNA Last Admin: 05/17/18 10:30 Dose: Not Given Chlorhexidine Gluconate (Peridex 0.12% Oral Kit) 15 ml OROPHARYNG BID@0800, 1999 [facility] Last Admin: 05/17/18 09:53 Dose: 15 ml Chlorhexidine Gluconate (Chlorhexidine 2% Cloth) 3 pack TOPICAL DAILY@0400 PRN PRN Reason: Extra cloth needed Stop: 05/22/18 03:59 Chlorhexidine Gluconate (Chlorhexidine 2% Cloth) 3 pack TOPICAL DAILY@0400 [facility] Stop: 05/22/18 03:59 Last Admin: 05/17/18 05:21 Dose: 3 pack Dextrose (D50w Vial) 50 ml IV.PUSH UNSCH PRN PRN Reason: PER HYPOGLYCEMIA PROTOCOL Glucagon (Glucagon Inj) 1 mg OTHER PRN PRN PRN Reason: for Hypoglycemia Protocol Propofol (Diprivan 1000 Mg/100 Ml Inj) 1,000 mg in 100 mls @ 2.121 mls/hr IV.CONT TITRATE PRN; Protocol PRN Reason: Per Protocol Last Titration: 05/17/18 12:29 Dose: 5 mcg/kg/min, 2.12 mls/hr Fentanyl (Fentanyl 10 Mcg/Ml Premix Drip) 2,500 mcg in 250 mls @ 5 mls/hr IV.SIG TITRATE PRN; Protocol PRN Reason: Per Protocol Last Titration: 05/17/18 12:29 Dose: 30 mcg/hr, 3 mls/hr Vasopressin 40 unit/ Dextrose 100 mls @ 6 mls/hr IV.CONT CONT [facility]; Protocol Last Admin: 05/17/18 10:25 Dose: 0.04 units/min, 6 mls/hr Midazolam HCl (Versed Inj) 50 mg in 50 mls @ 2 mls/hr IV.CONT TITRATE PRN; Protocol PRN Reason: Per Protocol Last Admin: 05/17/18 10:33 Dose: 2 mg/hr, 2 mls/hr Midazolam HCl (Versed Inj) 50 mg in 50 mls @ 2 mls/hr IV.CONT TITRATE PRN; Protocol PRN Reason: Per Protocol Sodium Chloride (Ns Inj) 1,000 mls @ 75 mls/hr IV.SIG .[id number] [facility] Last Admin: 05/17/18 06:39 Dose: 84 mls/hr Cefepime HCl 2,000 mg/ Sodium (Chloride) 100 mls @ 200 mls/hr IV.SIG Q12H [facility] Last Infusion: 05/17/18 12:28 Dose: Infused Vancomycin/Sodium Chloride (Vancomycin Inj) 1 gm in 200 mls @ 200 mls/hr IV.SIG DAILY@2300 JENNA Last Infusion: 05/17/18 12:28 Dose: Infused Pharmacy Profile Note (Vancomycin Consult Pharmacy) mls @ 0 mls/hr OTHER UNSCH [facility] Azithromycin 500 mg/ Sodium (Chloride) 250 mls @ 250 mls/hr IV.SIG HS [facility] Last Infusion: 05/17/18 12:27 Dose: Infused Norepinephrine Bitartrate 16 (mg/ Sodium Chloride) 250 mls @ 1.87 mls/hr IV.CONT TITRATE PRN; Protocol PRN Reason: See Protocol Last Titration: 05/17/18 06:47 Dose: 22 mcg/min, 20.62 mls/hr Insulin Human Regular (Novolin R Supplemental Scale) 0 units SQ ACHS [facility]; Protocol Last Admin: 05/17/18 13:32 Dose: Not Given Lactulose (Lactulose Liq) 30 ml PO DAILY PRN PRN Reason: SEVERE CONSITIPATION Miscellaneous Information ([facility] Ordered Lab Info) 0 each OTHER ONCE ONE Stop: 05/17/18 22:46 Morphine Sulfate (Morphine Inj) 2 mg IV.PUSH Q4H PRN PRN Reason: PAIN SCALE 6 TO 10 Last Admin: 05/16/18 21:02 Dose: 2 mg Ondansetron HCl (Zofran Inj) 4 mg IV.PUSH Q6H PRN PRN Reason: NAUSEA OR VOMITING Pantoprazole Sodium (Protonix Inj) 40 mg IV.PUSH Q24H [facility] Last Admin: 05/16/18 17:08 Dose: 40 mg Senna/Docusate Sodium (Teresa-Colace) 1 tab PO BID [facility] Last Admin: 05/17/18 09:50 Dose: 1 tab Sennosides (Senokot) 17.2 mg PO Q12H PRN PRN Reason: Moderate Constipation Sodium Chloride (Ns Flush) 0 ml IV.FLUSH DAILY [facility] Last Admin: 05/17/18 10:30 Dose: Not Given Terbutaline Sulfate (Brethine Inj) 1 mg SQ UNSCH PRN PRN Reason: For Extravasation Advance Directives Living Will: No Healthcare Surrogate: No Health Care Surrogate Name and Number: HCP: Jaziel Ray (son) [phone] 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 Family/friends goals: Patient's son (Jaziel) states, "My Dad's not a quitter. He would want to give this a shot, but I also know how he would want to live." Ethical and Legal Issues: No known ethical or legal issues at this time. . Physical Exam Vital Signs: Vital Signs - 24 hr 05/16/18 15:00 05/16/18 16:00 05/16/18 16:08 Temperature 99.4 F Pulse Rate 116 H 114 H 113 H Respiratory Rate 32 H 30 H 24 Blood Pressure 108/57 L 91/50 L Pulse Oximetry 100 05/16/18 16:25 05/16/18 17:00 05/16/18 17:45 Temperature 102.2 F H Pulse Rate 120 H 118 H Respiratory Rate 33 H 37 H Blood Pressure 110/54 L 103/74 Pulse Oximetry 99 100 97 05/16/18 18:00 05/16/18 18:15 05/16/18 18:30 Temperature Pulse Rate 114 H 110 H 108 H Respiratory Rate 39 H 34 H 31 H Blood Pressure 93/58 L 79/44 L 89/51 L Pulse Oximetry 97 97 97 05/16/18 18:45 05/16/18 19:00 05/16/18 19:15 Temperature Pulse Rate 106 H 104 H 102 H Respiratory Rate 32 H 31 H 30 H Blood Pressure 86/48 L 85/47 L 87/49 L Pulse Oximetry 97 97 97 05/16/18 19:30 05/16/18 19:32 05/16/18 19:35 Temperature Pulse Rate 92 H 82 82 Respiratory Rate 35 H 31 H 30 H Blood Pressure 77/47 L 94/49 L Pulse Oximetry 97 95 98 05/16/18 19:45 05/16/18 20:00 05/16/18 20:02 Temperature Pulse Rate 82 90 92 H Respiratory Rate 32 H 28 H 31 H Blood Pressure 89/44 L 93/37 L 77/40 L Pulse Oximetry 94 L 95 95 05/16/18 20:04 05/16/18 20:15 05/16/18 20:30 Temperature Pulse Rate 82 92 H 80 Respiratory Rate 32 H 31 H 30 H Blood Pressure 91/40 L 84/35 L 82/41 L Pulse Oximetry 96 96 97 05/16/18 20:45 05/16/18 20:49 05/16/18 21:00 Temperature Pulse Rate 74 76 108 H Respiratory Rate 30 H 31 H 35 H Blood Pressure 84/35 L 82/43 L 115/54 L Pulse Oximetry 97 98 82 L 05/16/18 21:15 05/16/18 21:30 05/16/18 21:34 Temperature Pulse Rate 68 68 68 Respiratory Rate 30 H 27 H 28 H Blood Pressure 99/37 L 97/39 L 94/38 L Pulse Oximetry 100 100 100 05/16/18 21:45 05/16/18 22:00 05/16/18 22:15 Temperature Pulse Rate 68 70 72 Respiratory Rate 27 H 19 21 Blood Pressure 109/37 L 123/45 L 121/44 L Pulse Oximetry 100 100 100 05/16/18 22:30 05/16/18 22:45 05/16/18 22:50 Temperature Pulse Rate 72 74 Respiratory Rate 20 20 18 Blood Pressure 96/55 L 84/38 L Pulse Oximetry 100 100 95 05/16/18 23:00 05/16/18 23:13 05/16/18 23:15 Temperature Pulse Rate 74 81 80 Respiratory Rate 18 18 18 Blood Pressure 102/45 L 101/40 L Pulse Oximetry 100 96 05/16/18 23:30 05/16/18 23:45 05/17/18 00:00 Temperature 97.5 F L 98 F Pulse Rate 72 72 74 Respiratory Rate 17 18 19 Blood Pressure 112/42 L 119/39 L 126/42 L Pulse Oximetry 95 94 L 95 05/17/18 00:15 05/17/18 00:30 05/17/18 00:45 Temperature Pulse Rate 68 62 68 Respiratory Rate 19 20 21 Blood Pressure 130/40 L 129/37 L 133/34 L Pulse Oximetry 95 95 95 05/17/18 01:00 05/17/18 01:15 05/17/18 01:30 Temperature Pulse Rate 60 74 74 Respiratory Rate 19 25 H 27 H Blood Pressure 101/41 L 133/38 L 134/47 L Pulse Oximetry 97 96 96 05/17/18 01:45 05/17/18 01:52 07/03/18 02:00 Temperature Pulse Rate 74 76 Respiratory Rate 24 22 32 H Blood Pressure 133/38 L 140/44 L Pulse Oximetry 95 96 95 05/17/18 02:15 05/17/18 02:30 05/17/18 02:45 Temperature Pulse Rate 82 76 80 Respiratory Rate 20 21 21 Blood Pressure 142/45 H 127/42 L 131/47 L Pulse Oximetry 94 L 94 L 94 L 05/17/18 03:00 05/17/18 03:15 05/17/18 03:20 Temperature Pulse Rate 80 74 80 Respiratory Rate 20 43 H 20 Blood Pressure 122/51 L 118/44 L Pulse Oximetry 94 L 94 L 05/17/18 03:30 05/17/18 03:45 05/17/18 04:00 Temperature Pulse Rate 78 72 80 Respiratory Rate 26 H 22 40 H Blood Pressure 123/43 L 123/43 L 126/47 L Pulse Oximetry 95 94 L 94 L 05/17/18 04:15 05/17/18 04:40 05/17/18 04:44 Temperature 97.8 F Pulse Rate 78 70 72 Respiratory Rate 39 H 24 23 Blood Pressure 125/47 L 115/51 L 112/38 L Pulse Oximetry 94 L 95 95 05/17/18 05:00 05/17/18 05:02 05/17/18 05:17 Temperature Pulse Rate 72 72 78 Respiratory Rate 20 21 20 Blood Pressure 119/41 L 116/41 L Pulse Oximetry 95 95 96 05/17/18 05:32 05/17/18 05:47 05/17/18 06:00 Temperature Pulse Rate 78 82 88 Respiratory Rate 19 18 18 Blood Pressure 123/39 L 123/42 L Pulse Oximetry 96 96 96 05/17/18 06:02 05/17/18 06:17 05/17/18 06:32 Temperature Pulse Rate 88 78 80 Respiratory Rate 18 19 18 Blood Pressure 124/45 L 137/50 L 137/44 L Pulse Oximetry 96 96 96 05/17/18 06:47 05/17/18 07:00 05/17/18 07:02 Temperature Pulse Rate 80 84 78 Respiratory Rate 21 28 H 25 H Blood Pressure 133/50 L 125/41 L Pulse Oximetry 94 L 95 95 05/17/18 07:17 05/17/18 07:43 05/17/18 08:03 Temperature 98.1 F Pulse Rate 70 70 64 Respiratory Rate 21 20 35 H Blood Pressure 109/50 L 120/44 L Pulse Oximetry 94 L 93 L 96 05/17/18 09:03 05/17/18 10:03 05/17/18 10:59 Temperature Pulse Rate 70 70 Respiratory Rate 28 H 35 H 26 H Blood Pressure 113/34 L 120/44 L Pulse Oximetry 96 96 94 L 05/17/18 11:03 05/17/18 12:00 05/17/18 13:03 Temperature 98.8 F Pulse Rate 70 70 74 Respiratory Rate 37 H 27 H 32 H Blood Pressure 133/33 L 126/43 L 121/46 L Pulse Oximetry 94 L 95 96 I&O: Intake & Output 05/15/18 05/16/18 05/17/18 05/18/18 06:59 06:59 06:59 06:59 Intake Total 120 / 120 2500 / 2500 5170 / 5170 650 / 650 Output Total 1700 / 1700 2000 / 2000 Balance 120 / 120 800 / 800 3170 / 3170 650 / 650 Weight 69.1 kg 70.7 kg 77.2 kg Physical Exam: CONSTITUTIONAL/GENERAL: This is an adequately nourished, elderly, male patient currently intubated on mechanical ventilation TUBES/LINES/DRAINS: ETT, OGT, PIV 2, CVL, [place] catheter, SCDs SKIN: No jaundice, rashes, or lesions. Ecchymoses on upper extremities bilaterally. Skin temperature appropriate. Not diaphoretic. HEAD: Atraumatic. Normocephalic. EYES: Pupils equal and round and reactive. No scleral icterus. No injection or drainage. Fundi not examined. ENT: Hearing grossly normal. Nose without bleeding or purulent drainage. Tongue , oral mucosa moist. NECK: Trachea midline. Supple, nontender. CARDIOVASCULAR: Regular rate and rhythm without murmurs, gallops, or rubs. No JVD. Peripheral pulses symmetric. RESPIRATORY/CHEST: Intubated on mechanical ventilation. Scattered rhonchi. GASTROINTESTINAL: Abdomen soft, non-tender, nondistended. No hepato-splenomegaly , or palpable masses. No guarding. Bowel sounds present. GENITOURINARY: Without palpable bladder distension. [place] catheter in place. MUSCULOSKELETAL: Extremities without clubbing or cyanosis. No obvious deformities. Trace edema LYMPHATICS: No palpable cervical or supraclavicular adenopathy. NEUROLOGICAL: Sedated on mechanical ventilation PSYCHIATRIC: No obvious anxiety/depression. No apparent hallucinations or other psychotic thought process. Diagnostic Tests Laboratory: Laboratory Results - last 72 hr 05/14/18 05/14/18 05/14/18 19:20 19:20 19:20 CBC w Diff WBC RBC Hgb Hct MCV MCH MCHC RDW Plt Count MPV Neut % (Auto) Lymph % (Auto) Gilchrist % (Auto) Eos % (Auto) Baso % (Auto) Neut # (Auto) Lymph # (Auto) Gilchrist # (Auto) Eos # (Auto) Baso # (Auto) CBC Comment WBC Differential PT 10.0 INR 1.0 APTT 33.4 H Puncture Site Patient Temperature HCO3 Base Excess O2 Saturation ABG pH ABG pCO2 ABG pO2 ABG HCO3 ABG O2 Content ABG Base Excess ABG Carboxyhemoglobin ABG Methemoglobin Boby Test Hemoglobin Carboxyhemoglobin O2 Delivery Device Liter Flow Vent Setting Inspired O2 Critical Value Sodium 125 L Potassium 4.9 Chloride 90 L Carbon Dioxide 25.4 Anion Gap 10 BUN 36 H Creatinine 1.50 H Estimated GFR 44 L POC Glucose Random Glucose 119 H Osmolality Lactic Acid Uric Acid Calcium 8.4 L Prot Corrected Calcium Phosphorus Magnesium Total Bilirubin 0.3 AST 30 ALT 17 Alkaline Phosphatase 75 Total Creatine Kinase Troponin I B-Natriuretic Peptide 233 H Total Protein 7.8 Albumin 3.2 L TSH Urine Osmolality Ur Random Sodium 05/14/18 05/14/18 05/14/18 19:20 19:20 19:34 CBC w Diff WBC 6.6 RBC 4.01 L Hgb 13.5 Hct 40.0 MCV 99.7 MCH 33.6 MCHC 33.7 RDW 15.7 Plt Count 160 MPV 8.6 Neut % (Auto) 70.9 H Lymph % (Auto) 17.2 Gilchrist % (Auto) 11.1 H Eos % (Auto) 0.4 Baso % (Auto) 0.4 Neut # (Auto) 4.8 Lymph # (Auto) 1.1 Gilchrist # (Auto) 0.7 Eos # (Auto) 0.0 Baso # (Auto) 0.0 CBC Comment DIFF FINAL WBC Differential PT INR APTT Puncture Site RT RADIAL Patient Temperature 98.6 HCO3 22 Base Excess -2.0 O2 Saturation 89 L* ABG pH 7.37 L ABG pCO2 39 ABG pO2 65 ABG HCO3 ABG O2 Content 16.7 ABG Base Excess ABG Carboxyhemoglobin 1.6 ABG Methemoglobin 1.0 Boby Test Hemoglobin 13.3 Carboxyhemoglobin O2 Delivery Device NRM Liter Flow 15 Vent Setting Inspired O2 Critical Value Sodium Potassium Chloride Carbon Dioxide Anion Gap BUN Creatinine Estimated GFR POC Glucose Random Glucose Osmolality Lactic Acid Uric Acid 5.7 Calcium Prot Corrected Calcium Phosphorus Magnesium Total Bilirubin AST ALT Alkaline Phosphatase Total Creatine Kinase Troponin I B-Natriuretic Peptide Total Protein Albumin TSH Urine Osmolality Ur Random Sodium 05/14/18 05/15/18 05/15/18 19:45 04:55 04:55 CBC w Diff Auto diff final WBC 6.7 RBC 4.01 L Hgb 12.9 L Hct 40.3 MCV 100.7 H MCH 32.2 MCHC 32.0 RDW 15.6 Plt Count 150 MPV 8.6 Neut % (Auto) 92.5 H Lymph % (Auto) 5.4 L Gilchrist % (Auto) 1.9 Eos % (Auto) 0.1 Baso % (Auto) 0.1 Neut # (Auto) 6.2 Lymph # (Auto) 0.4 L Gilchrist # (Auto) 0.1 Eos # (Auto) 0.0 Baso # (Auto) 0.0 CBC Comment WBC Differential . PT 10.0 INR 1.0 APTT 34.9 H Puncture Site Patient Temperature HCO3 Base Excess O2 Saturation ABG pH ABG pCO2 ABG pO2 ABG HCO3 ABG O2 Content ABG Base Excess ABG Carboxyhemoglobin ABG Methemoglobin Boby Test Hemoglobin Carboxyhemoglobin O2 Delivery Device Liter Flow Vent Setting Inspired O2 Critical Value Sodium Potassium Chloride Carbon Dioxide Anion Gap BUN Creatinine Estimated GFR POC Glucose Random Glucose Osmolality Lactic Acid 1.6 Uric Acid Calcium Prot Corrected Calcium Phosphorus Magnesium Total Bilirubin AST ALT Alkaline Phosphatase Total Creatine Kinase Troponin I B-Natriuretic Peptide Total Protein Albumin TSH Urine Osmolality Ur Random Sodium 05/15/18 05/15/18 05/15/18 04:55 04:55 12:07 CBC w Diff WBC RBC Hgb Hct MCV MCH MCHC RDW Plt Count MPV Neut % (Auto) Lymph % (Auto) Gilchrist % (Auto) Eos % (Auto) Baso % (Auto) Neut # (Auto) Lymph # (Auto) [place] # (Auto) Eos # (Auto) Baso # (Auto) CBC Comment WBC Differential PT INR APTT Puncture Site Patient Temperature HCO3 Base Excess O2 Saturation ABG pH ABG pCO2 ABG pO2 ABG HCO3 ABG O2 Content ABG Base Excess ABG Carboxyhemoglobin ABG Methemoglobin Boby Test Hemoglobin Carboxyhemoglobin O2 Delivery Device Liter Flow Vent Setting Inspired O2 Critical Value Sodium 128 L Potassium 4.9 Chloride 97 L Carbon Dioxide 22.8 Anion Gap 8 BUN 33 H Creatinine 1.20 Estimated GFR 58 L POC Glucose 205 H Random Glucose 155 H Osmolality 282 Lactic Acid 1.4 Uric Acid Calcium 7.8 L Prot Corrected Calcium Phosphorus 3.5 Magnesium Total Bilirubin 0.3 AST 25 ALT 15 Alkaline Phosphatase 60 Total Creatine Kinase Troponin I 0.03 B-Natriuretic Peptide Total Protein 6.7 Albumin 2.6 L TSH 1.060 Urine Osmolality Ur Random Sodium 05/15/18 05/15/18 05/15/18 12:35 17:01 19:30 CBC w Diff WBC RBC Hgb Hct MCV MCH MCHC RDW Plt Count MPV Neut % (Auto) Lymph % (Auto) Gilchrist % (Auto) Eos % (Auto) Baso % (Auto) Neut # (Auto) Lymph # (Auto) Gilchrist # (Auto) Eos # (Auto) Baso # (Auto) CBC Comment WBC Differential PT INR APTT Puncture Site Patient Temperature HCO3 Base Excess O2 Saturation ABG pH ABG pCO2 ABG pO2 ABG HCO3 ABG O2 Content ABG Base Excess ABG Carboxyhemoglobin ABG Methemoglobin Boby Test Hemoglobin Carboxyhemoglobin O2 Delivery Device Liter Flow Vent Setting Inspired O2 Critical Value Sodium Potassium Chloride Carbon Dioxide Anion Gap BUN Creatinine Estimated GFR POC Glucose 222 H Random Glucose Osmolality Lactic Acid Uric Acid Calcium Prot Corrected Calcium Phosphorus Magnesium Total Bilirubin AST ALT Alkaline Phosphatase Total Creatine Kinase 37 L Troponin I 0.03 B-Natriuretic Peptide Total Protein Albumin TSH Urine Osmolality Ur Random Sodium 39 05/15/18 05/15/18 05/16/18 19:30 20:42 07:39 CBC w Diff Auto diff final WBC 7.0 RBC 3.75 L Hgb 12.3 L Hct 37.2 L MCV 99.3 MCH 32.8 MCHC 33.0 RDW 15.8 Plt Count 179 MPV 8.5 Neut % (Auto) 88.1 H Lymph % (Auto) 3.8 L Gilchrist % (Auto) 7.5 Eos % (Auto) 0.6 Baso % (Auto) 0.0 Neut # (Auto) 6.2 Lymph # (Auto) 0.3 L Gilchrist # (Auto) 0.5 Eos # (Auto) 0.0 Baso # (Auto) 0.0 CBC Comment WBC Differential . PT INR APTT Puncture Site Patient Temperature HCO3 Base Excess O2 Saturation ABG pH ABG pCO2 ABG pO2 ABG HCO3 ABG O2 Content ABG Base Excess ABG Carboxyhemoglobin ABG Methemoglobin Boby Test Hemoglobin Carboxyhemoglobin O2 Delivery Device Liter Flow Vent Setting Inspired O2 Critical Value Sodium Potassium Chloride Carbon Dioxide Anion Gap BUN Creatinine Estimated GFR POC Glucose 138 H Random Glucose Osmolality Lactic Acid Uric Acid Calcium Prot Corrected Calcium Phosphorus Magnesium Total Bilirubin AST ALT Alkaline Phosphatase Total Creatine Kinase Troponin I B-Natriuretic Peptide Total Protein Albumin TSH Urine Osmolality 488 Ur Random Sodium 05/16/18 05/16/18 05/16/18 07:39 07:39 07:39 CBC w Diff WBC RBC Hgb Hct MCV MCH MCHC RDW Plt Count MPV Neut % (Auto) Lymph % (Auto) Gilchrist % (Auto) Eos % (Auto) Baso % (Auto) Neut # (Auto) Lymph # (Auto) Gilchrist # (Auto) Eos # (Auto) Baso # (Auto) CBC Comment WBC Differential PT INR APTT Puncture Site Patient Temperature HCO3 Base Excess O2 Saturation ABG pH ABG pCO2 ABG pO2 ABG HCO3 ABG O2 Content ABG Base Excess ABG Carboxyhemoglobin ABG Methemoglobin Boby Test Hemoglobin Carboxyhemoglobin O2 Delivery Device Liter Flow Vent Setting Inspired O2 Critical Value Sodium 134 L Potassium 4.8 Chloride 101 Carbon Dioxide 25.1 Anion Gap 8 BUN 25 H Creatinine 0.99 Estimated GFR 72 L POC Glucose Random Glucose 115 H Osmolality Lactic Acid 1.3 Uric Acid Calcium 7.7 L Prot Corrected Calcium Phosphorus 2.7 Magnesium 1.9 Total Bilirubin AST ALT Alkaline Phosphatase Total Creatine Kinase Troponin I Less than 0.02 L B-Natriuretic Peptide Total Protein Albumin TSH Urine Osmolality Ur Random Sodium 05/16/18 05/16/18 05/16/18 14:42 14:44 18:10 CBC w Diff WBC RBC Hgb Hct MCV MCH MCHC RDW Plt Count MPV Neut % (Auto) Lymph % (Auto) Gilchrist % (Auto) Eos % (Auto) Baso % (Auto) Neut # (Auto) Lymph # (Auto) Gilchrist # (Auto) Eos # (Auto) Baso # (Auto) CBC Comment WBC Differential PT INR APTT Puncture Site Right radial Patient Temperature 98.6 HCO3 Base Excess O2 Saturation 96 ABG pH 7.33 L ABG pCO2 45 H ABG pO2 101 ABG HCO3 23 ABG O2 Content 16.1 ABG Base Excess -2.1 L ABG Carboxyhemoglobin ABG Methemoglobin 0.6 Boby Test Present Hemoglobin 11.8 L Carboxyhemoglobin 0.9 O2 Delivery Device Ventilator Liter Flow Vent Setting Prvc/ac Inspired O2 100 Critical Value No Sodium Potassium Chloride Carbon Dioxide Anion Gap BUN Creatinine Estimated GFR POC Glucose 133 H 108 Random Glucose Osmolality Lactic Acid Uric Acid Calcium Prot Corrected Calcium Phosphorus Magnesium Total Bilirubin AST ALT Alkaline Phosphatase Total Creatine Kinase Troponin I B-Natriuretic Peptide Total Protein Albumin TSH Urine Osmolality Ur Random Sodium 05/16/18 05/17/18 05/17/18 21:11 04:25 04:25 CBC w Diff Auto diff final WBC 8.2 RBC 3.97 L Hgb 13.2 Hct 39.5 MCV 99.6 MCH 33.3 MCHC 33.5 RDW 16.3 Plt Count 162 MPV 8.9 Neut % (Auto) 86.4 H Lymph % (Auto) 8.7 L Gilchrist % (Auto) 4.5 Eos % (Auto) 0.0 Baso % (Auto) 0.4 Neut # (Auto) 7.1 Lymph # (Auto) 0.7 L Gilchrist # (Auto) 0.4 Eos # (Auto) 0.0 Baso # (Auto) 0.0 CBC Comment WBC Differential . PT INR APTT Puncture Site Patient Temperature HCO3 Base Excess O2 Saturation ABG pH ABG pCO2 ABG pO2 ABG HCO3 ABG O2 Content ABG Base Excess ABG Carboxyhemoglobin ABG Methemoglobin Boby Test Hemoglobin Carboxyhemoglobin O2 Delivery Device Liter Flow Vent Setting Inspired O2 Critical Value Sodium 140 Potassium 4.8 Chloride 108 H Carbon Dioxide 22.0 Anion Gap 10 BUN 23 H Creatinine 1.00 Estimated GFR 71 L POC Glucose 103 Random Glucose 129 H Osmolality Lactic Acid Uric Acid Calcium 6.9 L* D Prot Corrected Calcium 7.7 L Phosphorus 2.5 Magnesium 1.8 Total Bilirubin AST ALT Alkaline Phosphatase Total Creatine Kinase Troponin I B-Natriuretic Peptide Total Protein 5.6 L D Albumin TSH Urine Osmolality Ur Random Sodium 05/17/18 05/17/18 05/17/18 04:25 08:29 13:26 CBC w Diff WBC RBC Hgb Hct MCV MCH MCHC RDW Plt Count MPV Neut % (Auto) Lymph % (Auto) Gilchrist % (Auto) Eos % (Auto) Baso % (Auto) Neut # (Auto) Lymph # (Auto) Gilchrist # (Auto) Eos # (Auto) Baso # (Auto) CBC Comment WBC Differential PT INR APTT Puncture Site Patient Temperature HCO3 Base Excess O2 Saturation ABG pH ABG pCO2 ABG pO2 ABG HCO3 ABG O2 Content ABG Base Excess ABG Carboxyhemoglobin ABG Methemoglobin Boby Test Hemoglobin Carboxyhemoglobin O2 Delivery Device Liter Flow Vent Setting Inspired O2 Critical Value Sodium Potassium Chloride Carbon Dioxide Anion Gap BUN Creatinine Estimated GFR POC Glucose 122 H 126 H Random Glucose Osmolality Lactic Acid 1.5 Uric Acid Calcium Prot Corrected Calcium Phosphorus Magnesium Total Bilirubin AST ALT Alkaline Phosphatase Total Creatine Kinase Troponin I B-Natriuretic Peptide Total Protein Albumin TSH Urine Osmolality Ur Random Sodium Result Diagrams: 05/25/18 04:35 05/25/18 04:35 Microbiology: Microbiology 05/16/18 07:50 Aerobic Blood Culture - Preliminary Blood - Peripheral No growth in 1 day Anaerobic Blood Culture - Preliminary No growth in 1 day 05/16/18 07:39 Aerobic Blood Culture - Preliminary Blood - Peripheral No growth in 1 day Anaerobic Blood Culture - Preliminary No growth in 1 day 05/16/18 12:55 Gram Stain - Final Sputum - Expectorated Sputum 05/16/18 11:58 Influenza Types A,B Antigen - Final Nasal Aspirate Negative for FLU A and B antigen Infection due to influenza A or B cannot be ruled out since the antigen present in the sample may be below the detection limit of the test. 05/15/18 19:30 Legionella Antigen - Final Urine - Random Urine Presumptive negative for Legionella pneumophila serogroup 1 antigen in urine, suggesting no recent or recurrent infection. Infection due to Legionella cannot be ruled out since other serogroups and species may cause disease, antigen may not be present in urine in early infection, and the level of antigen present in the urine may be below the detection limit of the test. Streptococcus pneumoniae Antigen (M - Final Presumptive negative for streptococcus pneumoniae antigen, suggesting no current or recent infection. Infection due to Streptococcus pneumoniae cannot be ruled out since the antigen present in the sample may be below the detection limit of the test. Imaging: Chest X-Ray 05/17/18 06:00 CONCLUSION: Increasing right pleural effusion. Persistent consolidation right lung and increasing infiltrates in the left lung. Procedures: 05/16/2018: Intubation 05/16/2018: Left IJ central line Patient/Family Conference Present at Family Conference: Met with patient's son and granddaughter at bedside and in the family conference room Family Conference Location: Bedside, Consult Room Issues Discussed: * Palliative care role, purpose, approach * Additional medical, psychosocial, and spiritual history * Patients general health, functional status, and cognitive changes in the months leading up to the current hospitalization * Patient/family understanding of the current medical problems * Patient/family understanding of prognosis * Patients goals of care as best understood from advance directives and/or conversations and/or values * Current medical treatment options and benefits/burdens of those options * Likely scenarios comparing ongoing aggressive care with a transition to comfort measures only * Questions answered to the best of my ability * Palliative care contact information provided Assessment and Plan - Symptom Scale (1) Dyspnea 0-10 Scale: Unable to quantify Pertinent Non-Medical Issues: Psychosocial: Patient is originally from [place]. He was 1 of 8 children; all of his siblings are . 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 He moved to [place] approximately 4 years ago. Patient is ; his 4 years ago from Alzheimer's disease. He lives alone, but his son lives locally and helps considerably. 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 Spiritual: [employer] [place] Legal: Per [place] statutes, in the absence of written advanced directives healthcare proxy decision making falls to the patient's son, Jaziel. Ethical issues impacting care: No known ethical issues impacting care at this time. 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 He is currently intubated, requiring mechanical ventilation secondary to septic shock. He remains hypotensive requiring Levophed and vasopressin for pressor support. Given patient's advanced age, multiple comorbid conditions and recent acute decline, he is at high risk for complications. . Code Status: Full Code Plan: * FULL CODE * Decision-making: Given patient's current clinical condition, he is not capacitated to participate in medical decision making. Per [place] statutes, in the absence of written advanced directives healthcare proxy decision making falls to the patient's only child, Jaziel Ray * AGGRESSIVE GOALS.Patient's son (Jaziel) states, My Dad's not a quitter. He would want to give this a shot, but I also know how he would want to live." Family would want to attempt cardiopulmonary resuscitation "one time" before making changes in CODE STATUS. Briefly discussed trach/PEG decision if unable to wean patient off mechanical ventilation. * Discussed patient with bedside nurse and Dr. Corey * Palliative care contact information was provided to the patient's family. * SYMPTOM MANAGEMENT: dyspnea: Recently diagnosed with adenocarcinoma of the lungs in Mar, 2018. Presented to [facility] ED on 05/14/2018 with shortness of breath. Currently intubated on mechanical ventilation secondary to acute hypoxemic respiratory failure. Pulmonology consulted. On albuterol/ ipratropium aerosols every 4 hours with albuterol aerosols every 2 hours PRN as well as budesonide/formoterol 160/4.5 2 puffs daily. pain: Multifactoral. Contributing factors may include recently diagnosed adenocarcinoma of the lung status post radiation therapy, pneumonia, constipation, invasive lines, immobility, intubation. Patient showing no nonverbal signs or symptoms of distress on exam. Currently sedated on Fentanyl and Versed. PRN [place] 5/325 is available every 4 hours PRN for pain scale 1-5; morphine 2 mg IV every 2 hours PRN for pain scale 6-10. Palliative care will monitor PRN requirements and make recommendations as indicated. * Palliative care will continue to follow this patient throughout his hospitalization to establish trust, assist with symptom management and clarification of medical treatment goals Appreciation Thank you for the opportunity to participate in the care of Gregorio Flor Attestation Collaborating Comments: Chart reviewed. Case discussed with palliative care MANAGER PRODUCE. Above MANAGER PRODUCE note reviewed and I concur. . Attestation: To help prompt me to consider important information that might be impacting today's encounter and assessment, information from prior notes written by myself or my colleagues may have been "brought forward" into today's note. My signature on this note, however, is an attestation that I personally performed the exam, history, and/or decision-making noted today, and, unless otherwise indicated, the interactions with patient, family, and staff as well as the review of records all occurred today. I also attest that the listed assessment and stated plan reflect my best clinical judgment today based on the combination of historical information, prior notes, and today's exam/ interactions. When time spent is documented, it refers only to time spent today by the signer, or if indicated, combined time spent today by collaborating physician/nurse practitioner.
[2018-05-17] MEDS: Pantoprazole Inj 40 MG Vial IV.PUSH SCH (17:31)
--- NOTE | 2018-05-17 19:47 | P.PNPL ---
Subjective Interval history: 87 YOWM with Ca lung, VDRF, Sepsis On vasopressin and Levophed Sedated with Fentanyl and Versed Fi02 weaned to 40% Physical Exam Vital signs: Vital Signs 05/16/18 19:45 05/16/18 20:00 05/16/18 20:02 Temperature Pulse Rate 82 90 92 H Respiratory Rate 32 H 28 H 31 H Blood Pressure 89/44 L 93/37 L 77/40 L Pulse Oximetry 94 L 95 95 05/16/18 20:04 05/16/18 20:15 05/16/18 20:30 Temperature Pulse Rate 82 92 H 80 Respiratory Rate 32 H 31 H 30 H Blood Pressure 91/40 L 84/35 L 82/41 L Pulse Oximetry 96 96 97 05/16/18 20:45 05/16/18 20:49 05/16/18 21:00 Temperature Pulse Rate 74 76 108 H Respiratory Rate 30 H 31 H 35 H Blood Pressure 84/35 L 82/43 L 115/54 L Pulse Oximetry 97 98 82 L 05/16/18 21:15 05/16/18 21:30 05/16/18 21:34 Temperature Pulse Rate 68 68 68 Respiratory Rate 30 H 27 H 28 H Blood Pressure 99/37 L 97/39 L 94/38 L Pulse Oximetry 100 100 100 05/16/18 21:45 05/16/18 22:00 05/16/18 22:15 Temperature Pulse Rate 68 70 72 Respiratory Rate 27 H 19 21 Blood Pressure 109/37 L 123/45 L 121/44 L Pulse Oximetry 100 100 100 05/16/18 22:30 05/16/18 22:45 05/16/18 22:50 Temperature Pulse Rate 72 74 Respiratory Rate 20 20 18 Blood Pressure 96/55 L 84/38 L Pulse Oximetry 100 100 95 05/16/18 23:00 05/16/18 23:13 05/16/18 23:15 Temperature Pulse Rate 74 81 80 Respiratory Rate 18 18 18 Blood Pressure 102/45 L 101/40 L Pulse Oximetry 100 96 05/16/18 23:30 05/16/18 23:45 05/17/18 00:00 Temperature 97.5 F L 98 F Pulse Rate 72 72 74 Respiratory Rate 17 18 19 Blood Pressure 112/42 L 119/39 L 126/42 L Pulse Oximetry 95 94 L 95 05/17/18 00:15 05/17/18 00:30 05/17/18 00:45 Temperature Pulse Rate 68 62 68 Respiratory Rate 19 20 21 Blood Pressure 130/40 L 129/37 L 133/34 L Pulse Oximetry 95 95 95 05/17/18 01:00 05/17/18 01:15 05/17/18 01:30 Temperature Pulse Rate 60 74 74 Respiratory Rate 19 25 H 27 H Blood Pressure 101/41 L 133/38 L 134/47 L Pulse Oximetry 97 96 96 05/17/18 01:45 05/17/18 01:52 05/17/18 02:00 Temperature Pulse Rate 74 76 Respiratory Rate 24 22 32 H Blood Pressure 133/38 L 140/44 L Pulse Oximetry 95 96 95 05/17/18 02:15 05/17/18 02:30 05/17/18 02:45 Temperature Pulse Rate 82 76 80 Respiratory Rate 20 21 21 Blood Pressure 142/45 H 127/42 L 131/47 L Pulse Oximetry 94 L 94 L 94 L 05/17/18 03:00 05/17/18 03:15 05/17/18 03:20 Temperature Pulse Rate 80 74 80 Respiratory Rate 20 43 H 20 Blood Pressure 122/51 L 118/44 L Pulse Oximetry 94 L 94 L 05/17/18 03:30 05/17/18 03:45 05/17/18 04:00 Temperature Pulse Rate 78 72 80 Respiratory Rate 26 H 22 40 H Blood Pressure 123/43 L 123/43 L 126/47 L Pulse Oximetry 95 94 L 94 L 05/17/18 04:15 05/17/18 04:40 05/17/18 04:44 Temperature 97.8 F Pulse Rate 78 70 72 Respiratory Rate 39 H 24 23 Blood Pressure 125/47 L 115/51 L 112/38 L Pulse Oximetry 94 L 95 95 05/17/18 05:00 05/17/18 05:02 05/17/18 05:17 Temperature Pulse Rate 72 72 78 Respiratory Rate 20 21 20 Blood Pressure 119/41 L 116/41 L Pulse Oximetry 95 95 96 05/17/18 05:32 05/17/18 05:47 05/17/18 06:00 Temperature Pulse Rate 78 82 88 Respiratory Rate 19 18 18 Blood Pressure 123/39 L 123/42 L Pulse Oximetry 96 96 96 05/17/18 06:02 05/17/18 06:17 05/17/18 06:32 Temperature Pulse Rate 88 78 80 Respiratory Rate 18 19 18 Blood Pressure 124/45 L 137/50 L 137/44 L Pulse Oximetry 96 96 96 05/17/18 06:47 05/17/18 07:00 05/17/18 07:02 Temperature Pulse Rate 80 84 78 Respiratory Rate 21 28 H 25 H Blood Pressure 133/50 L 125/41 L Pulse Oximetry 94 L 95 95 05/17/18 07:17 05/17/18 07:43 05/17/18 08:03 Temperature 98.1 F Pulse Rate 70 70 64 Respiratory Rate 21 20 35 H Blood Pressure 109/50 L 120/44 L Pulse Oximetry 94 L 93 L 96 05/17/18 09:03 05/17/18 10:03 05/17/18 10:59 Temperature Pulse Rate 70 70 Respiratory Rate 28 H 35 H 26 H Blood Pressure 113/34 L 120/44 L Pulse Oximetry 96 96 94 L 05/17/18 11:03 05/17/18 12:00 05/17/18 13:03 Temperature 98.8 F Pulse Rate 70 70 74 Respiratory Rate 37 H 27 H 32 H Blood Pressure 133/33 L 126/43 L 121/46 L Pulse Oximetry 94 L 95 96 05/17/18 14:03 05/17/18 14:15 05/17/18 15:03 Temperature Pulse Rate 78 80 Respiratory Rate 35 H 22 24 Blood Pressure 116/70 125/53 L Pulse Oximetry 96 97 96 05/17/18 15:31 05/17/18 16:00 05/17/18 16:57 Temperature 98.8 F Pulse Rate 76 Respiratory Rate 42 H 28 H Blood Pressure 127/54 L Pulse Oximetry 96 96 94 L 05/17/18 17:00 05/17/18 17:44 05/17/18 18:00 Temperature Pulse Rate 82 90 Respiratory Rate 23 43 H Blood Pressure 131/54 L 112/55 L Pulse Oximetry 93 L 90 L 91 L Intake & Output 05/17/18 05/17/18 05/18/18 06:59 18:59 06:59 Intake Total 1297 / 1297 3185 / 3185 Output Total 550 / 550 950 / 950 Balance 747 / 747 2235 / 2235 Weight 77.2 kg Intake: IV 1297 / 1297 3000 / 3000 Levophed Inj 16 MG In NS Inj 240 / 240 250 / 250 234 ML @ 2 MCG/MIN 1.87 mls/hr IV.CONT TITRATE PRN Rx#: [id number] Diprivan 1000 mg/100 ml Inj 1, 30 / 30 100 / 100 000 mg In 100 ml @ 5 MCG/KG/MIN 2.121 mls/hr IV.CONT TITRATE PRN Rx#:[id number] Pitressin Inj 40 UNIT In D5W 100 / 100 Inj 98 ML @ 0.04 UNITS/MIN 6 mls/hr IV.CONT CONT DECLAN Rx#: [id number] Azithromycin Inj 500 MG In NS 250 / 250 Inj 250 ML @ 250 mls/hr IV.SIG HS DECLAN Rx#:[id number] Maxipime Inj 2,000 MG In NS Inj 100 / 100 100 / 100 100 ML @ 200 mls/hr IV.SIG Q12H DECLAN Rx#:[id number] NS Inj 1,000 ML @ 75 mls/hr IV. 927 / 927 1999 / 1999 SIG .[id number] DECLAN Rx#:[id number] Vancomycin Inj 1 gm In 200 ml @ 200 / 200 200 mls/hr IV.SIG DAILY@2300 DECLAN Rx#:[id number] Tube Feeding 125 / 125 Tube Irrigant 60 / 60 Output: Urine 450 / 450 Urine Amount (Catheter) 950 / 950 Indwelling Urethral Catheter 950 / 950 Gastric Drainage 100 / 100 Oral 100 / 100 Other: Date of Last Bowel Movement 05/13/18 05/13/18 # Bowel Movements 0 GENERAL: Elderly Wm, on vent sedated SKIN: Warm and dry. HEAD: Normocephalic. EYES: No scleral icterus. No injection or drainage. NECK: Supple, trachea midline. No JVD or lymphadenopathy. CARDIOVASCULAR: Regular rate and rhythm without murmurs, gallops, or rubs. RESPIRATORY: Breath sounds equal bilaterally. No accessory muscle use. GASTROINTESTINAL: Abdomen soft, non-tender, nondistended. MUSCULOSKELETAL: No cyanosis, or edema. BACK: Nontender without obvious deformity. No CVA tenderness. - Urinary Catheter Management Indwelling Urethral Catheter Cath placed during this visit: no Assessment and Plan - Plan IMPRESSION: 1. Hypoxic respiratory failure. 2. Sepsis. 3. Carcinoma of the lung. 4. Chronic obstructive pulmonary disease. 5. History of abdominal aortic aneurysm repair. PLAN: Vent support PRVC, 16, Fi02 40% Cont Abx Aerosol nebs Cont Vasopressin Wean Levophed Sedation with Fentanyl and Versed
[2018-05-17] MEDS: Azithromycin Inj 500 MG in Sodium Chlor 0.9% Inj 250 ML IV.SIG SCH (20:54)
[2018-05-17] MEDS ORDERED: Pharmacy Ordered Lab Info OTHER ONE (22:45)
[2018-05-18] MEDS: Vancomycin Inj 1 GM/200 ML PIGGYBACK IV.SIG SCH (00:38)
[2018-05-18] MEDS: Oral Hygiene Kit OROPHARYNG SCH ×4 (00:39→17:44)
[2018-05-18] MEDS: Vasopressin Inj 40 UNIT in Dextrose 5% in Water Inj 98 ML IV.CONT SCH ×4 (01:36→17:50)
--- NOTE | 2018-05-18 07:01 | P.PNCC ---
Subjective Subjective Remarks/Hospital Course: 05/16: This is a 87-year-old male. Date of admission 05/14/2018. Past medical history includes COPD, did a course of the lung, AAA, glaucoma, osteoarthritis and stable AAA. 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 He has recently received radiation therapy by Dr. allen. He is followed by Dr. Cherry pulmonology. He was in the [facility] on 05/14 with acute onset of shortness of breath. He denies coughing/productive, congestion, fevers or chills. Denies chest pain. CT angiogram revealed no pulmonary embolism. Right upper lobe mass identified. Possible postobstructive pneumonia versus radiation pneumonitis. Patient receives norepinephrine drip to maintain mean atrial pressure and 65. Started on vancomycin, cefepime and azithromycin. 05/17: Remains sedated, orally intubated on mechanical ventilation. On Levophed/ vasopressin for pressor support. 05/18: no changes. remains on vasopressors. remains critically ill, intubated, sedated. Son is at bedside and states he understands how sick his father is but "chooses to remain hopefully optimistic". Objective Vital Signs / I&O: Vital Signs 05/17/18 07:00 05/17/18 07:02 05/17/18 07:17 Temperature Pulse Rate 84 78 70 Respiratory Rate 28 H 25 H 21 Blood Pressure 125/41 L 109/50 L Pulse Oximetry 95 95 94 L 05/17/18 07:43 05/17/18 08:03 05/17/18 09:03 Temperature 98.1 F Pulse Rate 70 64 70 Respiratory Rate 20 35 H 28 H Blood Pressure 120/44 L 113/34 L Pulse Oximetry 93 L 96 96 05/17/18 10:03 05/17/18 10:59 05/17/18 11:03 Temperature Pulse Rate 70 70 Respiratory Rate 35 H 26 H 37 H Blood Pressure 120/44 L 133/33 L Pulse Oximetry 96 94 L 94 L 05/17/18 12:00 05/17/18 13:03 05/17/18 14:03 Temperature 98.8 F Pulse Rate 70 74 78 Respiratory Rate 27 H 32 H 35 H Blood Pressure 126/43 L 121/46 L 116/70 Pulse Oximetry 95 96 96 05/17/18 14:15 05/17/18 15:03 05/17/18 15:31 Temperature Pulse Rate 80 Respiratory Rate 22 24 Blood Pressure 125/53 L Pulse Oximetry 97 96 96 05/17/18 16:00 05/17/18 16:57 05/17/18 17:00 Temperature 98.8 F Pulse Rate 76 82 Respiratory Rate 42 H 28 H 23 Blood Pressure 127/54 L 131/54 L Pulse Oximetry 96 94 L 93 L 05/17/18 17:44 05/17/18 18:00 05/17/18 19:00 Temperature Pulse Rate 90 100 H Respiratory Rate 43 H 20 Blood Pressure 112/55 L Pulse Oximetry 90 L 91 L 93 L 05/17/18 19:03 05/17/18 19:15 05/17/18 19:18 Temperature Pulse Rate 102 H 101 H 100 H Respiratory Rate 20 20 29 H Blood Pressure 123/57 L 130/57 L Pulse Oximetry 93 L 93 L 93 L 05/17/18 19:33 05/17/18 19:48 05/17/18 20:00 Temperature Pulse Rate 100 H 100 H 102 H Respiratory Rate 23 26 H 20 Blood Pressure 121/56 L 113/54 L Pulse Oximetry 92 L 99 93 L 05/17/18 20:03 05/17/18 20:18 05/17/18 20:33 Temperature 98.6 F Pulse Rate 102 H 82 92 H Respiratory Rate 21 22 20 Blood Pressure 112/49 L 112/46 L 108/51 L Pulse Oximetry 93 L 92 L 91 L 05/17/18 20:48 05/17/18 21:00 05/17/18 21:03 Temperature Pulse Rate 90 102 H 102 H Respiratory Rate 21 21 21 Blood Pressure 118/48 L 125/46 L Pulse Oximetry 92 L 93 L 93 L 05/17/18 21:18 05/17/18 21:33 05/17/18 21:48 Temperature Pulse Rate 104 H 106 H 106 H Respiratory Rate 23 23 23 Blood Pressure 112/42 L 110/47 L 109/48 L Pulse Oximetry 93 L 93 L 94 L 05/17/18 22:00 05/17/18 22:03 05/17/18 22:18 Temperature Pulse Rate 106 H 104 H 102 H Respiratory Rate 21 23 21 Blood Pressure 110/43 L 110/44 L Pulse Oximetry 95 95 94 L 05/17/18 22:33 05/17/18 22:35 05/17/18 22:48 Temperature Pulse Rate 100 H 100 H Respiratory Rate 20 19 20 Blood Pressure 114/45 L 119/44 L Pulse Oximetry 95 95 96 05/17/18 23:00 05/17/18 23:03 05/17/18 23:15 Temperature Pulse Rate 100 H 98 H 100 H Respiratory Rate 20 19 20 Blood Pressure 110/45 L Pulse Oximetry 93 L 92 L 05/17/18 23:18 05/17/18 23:33 05/17/18 23:48 Temperature 98.6 F Pulse Rate 100 H 102 H 102 H Respiratory Rate 19 19 23 Blood Pressure 108/43 L 114/40 L 114/44 L Pulse Oximetry 92 L 92 L 96 05/18/18 00:00 05/18/18 00:03 05/18/18 00:18 Temperature Pulse Rate 100 H 100 H 100 H Respiratory Rate 21 20 19 Blood Pressure 119/48 L 119/47 L Pulse Oximetry 94 L 94 L 95 05/18/18 00:33 05/18/18 00:48 05/18/18 01:00 Temperature Pulse Rate 100 H 100 H 98 H Respiratory Rate 18 19 18 Blood Pressure 114/47 L 115/48 L Pulse Oximetry 94 L 95 96 05/18/18 01:03 05/18/18 01:18 05/18/18 01:25 Temperature Pulse Rate 98 H 98 H Respiratory Rate 19 18 19 Blood Pressure 114/49 L 114/46 L Pulse Oximetry 96 95 05/18/18 01:33 05/18/18 01:48 05/18/18 02:00 Temperature Pulse Rate 98 H 98 H 98 H Respiratory Rate 19 19 24 Blood Pressure 119/41 L 110/43 L Pulse Oximetry 95 93 L 93 L 05/18/18 02:03 05/18/18 02:18 05/18/18 02:33 Temperature Pulse Rate 98 H 98 H 100 H Respiratory Rate 21 24 22 Blood Pressure 105/43 L 110/44 L 109/45 L Pulse Oximetry 94 L 94 L 94 L 05/18/18 02:48 05/18/18 03:00 05/18/18 03:03 Temperature Pulse Rate 98 H 96 H 98 H Respiratory Rate 24 20 20 Blood Pressure 109/42 L 107/44 L Pulse Oximetry 96 96 95 05/18/18 03:18 05/18/18 03:33 05/18/18 03:48 Temperature Pulse Rate 98 H 96 H 102 H Respiratory Rate 23 23 27 H Blood Pressure 105/46 L 101/48 L 86/41 L Pulse Oximetry 95 94 L 94 L 05/18/18 03:59 05/18/18 04:00 05/18/18 04:03 Temperature Pulse Rate 97 H 102 H 102 H Respiratory Rate 19 52 H 30 H Blood Pressure 105/50 L Pulse Oximetry 90 L 05/18/18 04:18 05/18/18 04:33 05/18/18 04:40 Temperature Pulse Rate 100 H 100 H Respiratory Rate 22 22 18 Blood Pressure 101/47 L 102/48 L Pulse Oximetry 96 97 95 05/18/18 04:48 05/18/18 05:00 05/18/18 05:03 Temperature Pulse Rate 98 H 98 H 98 H Respiratory Rate 21 19 18 Blood Pressure 96/49 L 99/46 L Pulse Oximetry 98 99 99 05/18/18 05:18 05/18/18 05:33 05/18/18 05:48 Temperature Pulse Rate 100 H 100 H 98 H Respiratory Rate 18 19 27 H Blood Pressure 100/45 L 96/48 L 106/58 L Pulse Oximetry 98 99 93 L 05/18/18 06:00 05/18/18 06:03 05/18/18 06:18 Temperature Pulse Rate 102 H 102 H 102 H Respiratory Rate 16 18 19 Blood Pressure 107/47 L 102/44 L Pulse Oximetry 94 L 94 L 93 L 05/18/18 06:33 Temperature Pulse Rate 100 H Respiratory Rate 18 Blood Pressure 102/45 L Pulse Oximetry 94 L Intake & Output 05/17/18 05/17/18 05/18/18 06:59 18:59 06:59 Intake Total 1297 / 1297 3185 / 3185 100 / 100 Output Total 550 / 550 950 / 950 900 / 900 Balance 747 / 747 2235 / 2235 -800 / -800 Weight 77.2 kg 77.3 kg Intake: IV 1297 / 1297 3000 / 3000 100 / 100 Levophed Inj 16 MG In NS Inj 240 / 240 250 / 250 234 ML @ 2 MCG/MIN 1.87 mls/hr IV.CONT TITRATE PRN Rx#: [id number] Diprivan 1000 mg/100 ml Inj 1, 30 / 30 100 / 100 000 mg In 100 ml @ 5 MCG/KG/MIN 2.121 mls/hr IV.CONT TITRATE PRN Rx#:[id number] Pitressin Inj 40 UNIT In D5W 100 / 100 100 / 100 Inj 98 ML @ 0.04 UNITS/MIN 6 mls/hr IV.CONT CONT DECLAN Rx#: [id number] Azithromycin Inj 500 MG In NS 250 / 250 Inj 250 ML @ 250 mls/hr IV.SIG HS DECLAN Rx#:[id number] Maxipime Inj 2,000 MG In NS Inj 100 / 100 100 / 100 100 ML @ 200 mls/hr IV.SIG Q12H DECLAN Rx#:[id number] NS Inj 1,000 ML @ 75 mls/hr IV. 927 / 927 1999 / 1999 SIG .[id number] DECLAN Rx#:[id number] Vancomycin Inj 1 gm In 200 ml @ 200 / 200 200 mls/hr IV.SIG DAILY@2300 DECLAN Rx#:[id number] Tube Feeding 125 / 125 Tube Irrigant 60 / 60 Output: Urine 450 / 450 Urine Amount (Catheter) 950 / 950 900 / 900 Indwelling Urethral Catheter 950 / 950 900 / 900 Gastric Drainage 100 / 100 Oral 100 / 100 Other: Date of Last Bowel Movement 05/13/18 05/13/18 05/18/18 # Bowel Movements 0 2 Result Diagrams: 05/17/18 04:25 05/17/18 04:25 Objective Remarks: General: frail critically ill elderly male, lying in bed, sedated and intubated. HEENT: nc. at. perrl. mmm. Neck: No JVD, trachea midline. Chest: on mech vent, equal chest rise. scattered rhonchi bilaterally. fio2 45% . spo2 93%. peep 5. CVS: normal rate of 93, regular rhythm. appears sinus by telemetry. GI/abdomen: soft, nontender, nondistended. no guarding. Extremities: warm bilaterally, 1+ bilateral edema Neuro: RASS -4. sedated, intubated. pupils equal and reactive. withdraws to pain , does not follow commands. Assessment and Plan - Problem List (1) Hyperlipidemia Code(s): E78.5 - Hyperlipidemia, unspecified Status: Chronic (2) Essential hypertension Code(s): I10 - Essential (primary) hypertension Status: Acute (3) AAA (abdominal aortic aneurysm) without rupture Code(s): I71.4 - Abdominal aortic aneurysm, without rupture Status: Chronic (4) Adenocarcinoma of lung Code(s): C34.90 - Malignant neoplasm of unspecified part of unspecified bronchus or lung Status: Chronic (5) Acute and chronic respiratory failure with hypoxia Code(s): J96.21 - Acute and chronic respiratory failure with hypoxia Status: Acute (6) Tobacco use Code(s): Z72.0 - Tobacco use Status: Chronic (7) COPD (chronic obstructive pulmonary disease) Code(s): J44.9 - Chronic obstructive pulmonary disease, unspecified Status: Chronic - Assessment and Plan Plan: Assessment: 87yM with lung adenocarcinoma presents with acute hypoxic and hypercarbic respiratory failure, post-obstructive pneumonia, and associated septic shock. Clinically not improving: remains critically ill with little if any progress or improvements in last 24h. Again expressed to son that this is likely terminal and he may not survive this hospitalization. Son continues to press on with aggressive measures at this time. Continue vasopressors and antibiotics for his shock. Neuro/Psych: Acute metabolic encephalopathy Sedation while intubated. Daily sedation vacation. versed, fentanyl. goal RASS -2 off propofol due to hypotension. Acetaminophen 650 mg by mouth every 6 hours for Fever Hydrocodone/acetaminophen 5/325 one tab every 4 hours as needed pain 1 through 5 Morphine sulfate 2 mg IV every 2 hours as needed pain 6 -10 CV: Septic Shock Hyperlipidemia Coronary artery disease Holding home medications of ramipril 5 mill grams daily and lovastatin 10 mg daily. Limited 2D echocardiogram revealed ejection fraction 55%. PEEP 31 mmHg continue levophed for goal map > 60 - renal function is improving and peripheral perfusion is compromised with rising vasopressors: must drop map goal from 65 to 60 to mitigate vasoconstriction. Resp: Acute hypoxic and hypercarbic respiratory failure Intubated and placed on mechanical ventilation on 05/16 Albuterol/ipratropium aerosols every 4 hours with albuterol aerosols every 2 hours as needed dyspnea budesonide/formoterol 160/4.5 2 puffs twice daily Consultation pulmonology/Dr. Cherry CT pulmonary angiogram revealed no evidence of pulmonary embolism. Right perihilar/peribronchial mass consistent with patient's known lung carcinoma is noted. Patchy infiltrates are noted within the lower lobes bilaterally consistent with probable pneumonia. Central bronchiectasis is noted bilaterally. Cardiomegaly and coronary artery calcifications. Cholelithiasis. Degenerative changes and kyphosis of the thoracic spine are noted. daily SBTs. wean fio2 for goal spo2 > 88% GI: Cholelithiasis Acute protein calorie malnutrition- severe Tube feeds of Jevity 1.5 starting at 20 cc an hour. If pressor requirement decreases will consider advancing to goal, but pressor requirement remains today. Pantoprazole for GI prophylaxis Docusate sodium/senna 1 tablet twice daily for bowel regimen : No indication for Montes De Oca catheter Endo: Hyperglycemia SSI to maintain euglycemia Renal: Creatinine currently within normal limits daily BMP Heme: History of adenocarcinoma the lung status post radiation therapy by Dr. Allen Macrocytic anemia Elevated PTT PET scan 03/2018 revealed 3 cm right upper lobe mass. Cytology revealed poorly differentiated adenocarcinoma. Monitor CBC daily. Follow trends ID: Likely community acquired pneumonia Day #5 vancomycin, cefepime and azithromycin Blood cultures 2: Results NGTD Negative urine Legionella pneumococcal antigens Influenza a and B and sputum ordered MSK: Kyphosis of thoracic spine Osteoarthritis PT evaluate and treat FEN: Hyponatremia Replace electrolytes as clinically indicated Access -Central line placed 05/16 Prophylaxis- GI -pantoprazole -DVT -SCD/enoxaparin Extensive discussion with patient's son regarding current clinical status and plan of care and he voiced understanding. remains full code. palliative following. Condition critical Time spent on critical care excluding procedures 33 minutes (7) COPD (chronic obstructive pulmonary disease) Qualifiers: COPD type: unspecified COPD Qualified Code(s): J44.9 - Chronic obstructive pulmonary disease, unspecified
[2018-05-18 07:36] LABS: Hematocrit 36.2 % (39.0-51.0); Hemoglobin 12.1 gm/dL (13.0-17.0); Mean Corpuscular HGB Conc 33.3 % (32.0-36.0); Mean Corpuscular Hemoglobin 33.2 pg (27.0-34.0); Mean Corpuscular Volume 99.9 fL (80.0-100.0); Mean Platelet Volume 7.9 fL (7.0-11.0); Platelet Count 137 th/mm3 (150-450); Red Blood Count 3.63 mil/mm3 (4.50-5.90); Red Cell Distribution Width 16.4 % (11.6-17.2); White Blood Count 6.7 th/mm3 (4.0-11.0)
[2018-05-18 07:49] LABS: Potassium 4.3 meq/L (3.5-5.1)
[2018-05-18 07:51] LABS: Calcium 7.5 mg/dL (8.5-10.1)
[2018-05-18 07:52] LABS: Carbon Dioxide 23.3 meq/L (21.0-32.0)
[2018-05-18] MEDS: Chlorhexidine 0.12% Oral Kit 15 ML UDC OROPHARYNG SCH ×2 (08:32→22:04)
[2018-05-18] MEDS: Artificial Tears Opth Drops 15 ML Bottle EACH EYE SCH ×3 (08:33→17:44)
[2018-05-18] MEDS: Senna/Docusate Sodium 8.6/50 MG Tablet PO SCH ×2 (08:33→22:02)
[2018-05-18] MEDS: Budesonide-Formoterol 160/4.5 MCG 6 GM Inhaler INH SCH ×2 (08:33→23:30)
[2018-05-18] MEDS: Insulin NovoLIN Regular Correctional Sugar Inj SQ SCH ×3 (08:37→17:47)
[2018-05-18] MEDS: Sod Chloride 0.9% Inj 1,000 ML IV.SIG SCH (14:01)
[2018-05-18] MEDS: MethylPREDNISolone Sod Succinate Inj 125 MG/2 ML Vial IV.PUSH SCH ×2 (14:26→22:07)
[2018-05-18] MEDS: Pantoprazole Inj 40 MG Vial IV.PUSH SCH (17:44)
[2018-05-18] MEDS: Azithromycin Inj 500 MG in Sodium Chlor 0.9% Inj 250 ML IV.SIG SCH (22:04)
[2018-05-18] MEDS: Chlorhexidine Gluconate 2% 1 Pack (2 Cloths) TOPICAL SCH (22:04)
[2018-05-19] MEDS: Vancomycin Inj 1,250 MG in Sodium Chlor 0.9% Inj 250 ML IV.SIG SCH ×2 (00:13→23:39)
[2018-05-19] MEDS: Midazolam 50 MG/50 ML Inj 50 MG/50 ML BAG IV.CONT PRN (00:14)
--- NOTE | 2018-05-19 06:18 | P.PNCC ---
Subjective Subjective Remarks/Hospital Course: 05/16: This is a 87-year-old male. Date of admission 05/14/2018. Past medical history includes COPD, did a course of the lung, AAA, glaucoma, osteoarthritis and stable AAA. 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 He has recently received radiation therapy by Dr. allen. He is followed by Dr. Cherry pulmonology. [facility] with acute onset of shortness of breath. He denies coughing/productive, congestion, fevers or chills. Denies chest pain. CT angiogram revealed no pulmonary embolism. Right upper lobe mass identified. Possible postobstructive pneumonia versus radiation pneumonitis. Patient receives norepinephrine drip to maintain mean atrial pressure and 65. Started on vancomycin, cefepime and azithromycin. 05/17: Remains sedated, orally intubated on mechanical ventilation. On Levophed/ vasopressin for pressor support. 05/18: no changes. remains on vasopressors. remains critically ill, intubated, sedated. Son is at bedside and states he understands how sick his father is but "chooses to remain hopefully optimistic". 05/19: no improvements. remains on vasopressors. mental status not improved. Objective Vital Signs / I&O: Vital Signs 05/18/18 06:18 05/18/18 06:33 05/18/18 07:00 Temperature Pulse Rate 102 H 100 H Respiratory Rate 19 18 Blood Pressure 102/44 L 102/45 L Pulse Oximetry 93 L 94 L 96 05/18/18 07:03 05/18/18 07:34 05/18/18 08:00 Temperature Pulse Rate 98 H Respiratory Rate 18 17 17 Blood Pressure 104/45 L Pulse Oximetry 94 L 5 L 05/18/18 08:03 05/18/18 09:03 05/18/18 10:03 Temperature 36.9 C Pulse Rate 96 H 96 H 96 H Respiratory Rate 16 16 17 Blood Pressure 103/42 L 106/44 L 103/41 L Pulse Oximetry 98 99 97 05/18/18 10:17 05/18/18 11:03 05/18/18 12:03 Temperature Pulse Rate 98 H 96 H Respiratory Rate 16 16 16 Blood Pressure 104/41 L 96/42 L Pulse Oximetry 98 96 94 L 05/18/18 13:04 05/18/18 14:04 05/18/18 15:00 Temperature Pulse Rate 98 H 98 H 97 H Respiratory Rate 20 17 16 Blood Pressure 103/44 L 98/40 L Pulse Oximetry 96 97 95 05/18/18 15:04 05/18/18 16:04 05/18/18 17:04 Temperature Pulse Rate 96 H 98 H 98 H Respiratory Rate 25 H 20 19 Blood Pressure 100/42 L 100/42 L 97/45 L Pulse Oximetry 98 94 L 95 05/18/18 18:04 05/18/18 18:19 05/18/18 18:34 Temperature Pulse Rate 96 H 96 H Respiratory Rate 16 16 Blood Pressure 100/47 L 96/45 L 96/45 L Pulse Oximetry 97 98 05/18/18 18:49 05/18/18 19:00 05/18/18 19:04 Temperature Pulse Rate 96 H 96 H 96 H Respiratory Rate 15 16 15 Blood Pressure 99/49 L 99/49 L Pulse Oximetry 98 98 98 05/18/18 19:50 05/18/18 20:00 05/18/18 20:04 Temperature 36.7 C Pulse Rate 97 H 87 96 H Respiratory Rate 16 16 Blood Pressure 101/49 L 100/49 L Pulse Oximetry 98 96 99 05/18/18 20:34 05/18/18 20:49 05/18/18 21:00 Temperature 36.7 C Pulse Rate 98 H 98 H 98 H Respiratory Rate 18 20 18 Blood Pressure 103/44 L 101/49 L 104/47 L Pulse Oximetry 96 96 96 05/18/18 21:04 05/18/18 21:19 05/18/18 21:34 Temperature Pulse Rate 98 H 98 H 98 H Respiratory Rate 18 18 17 Blood Pressure 102/46 L 101/49 L Pulse Oximetry 96 96 96 05/18/18 21:49 05/18/18 22:00 05/18/18 22:04 Temperature Pulse Rate 96 H 96 H Respiratory Rate 17 15 Blood Pressure 100/48 L 98/48 L Pulse Oximetry 96 96 05/18/18 22:30 05/18/18 23:00 05/18/18 23:15 Temperature Pulse Rate 102 H 96 H Respiratory Rate 16 21 16 Blood Pressure 84/57 L Pulse Oximetry 95 95 05/18/18 23:54 05/19/18 00:00 05/19/18 00:30 Temperature 36.7 C Pulse Rate 92 H 86 80 Respiratory Rate 15 16 15 Blood Pressure 89/50 L 100/48 L 100/48 L Pulse Oximetry 95 96 96 05/19/18 01:00 05/19/18 01:10 05/19/18 01:30 Temperature Pulse Rate 86 Respiratory Rate 16 16 Blood Pressure 93/48 L 91/52 L Pulse Oximetry 95 95 05/19/18 02:00 05/19/18 03:00 05/19/18 03:20 Temperature Pulse Rate 74 74 76 Respiratory Rate 16 16 16 Blood Pressure 92/50 L 94/50 L Pulse Oximetry 95 95 05/19/18 03:30 05/19/18 04:00 05/19/18 04:30 Temperature 36.3 C L Pulse Rate 72 80 Respiratory Rate 16 15 16 Blood Pressure 100/45 L 99/57 L Pulse Oximetry 99 96 95 05/19/18 05:00 Temperature Pulse Rate Respiratory Rate Blood Pressure 105/47 L Pulse Oximetry Intake & Output 05/18/18 05/18/18 05/19/18 06:59 18:59 06:59 Intake Total 200 / 200 2107 / 2107 Output Total 900 / 900 1020 / 1020 Balance -700 / -700 1087 / 1087 Weight 77.3 kg Intake: IV 200 / 200 1700 / 1700 Versed Inj 50 mg In 50 ml @ 2 50 / 50 MG/HR 2 mls/hr IV.CONT TITRATE PRN Rx#:[id number] Pitressin Inj 40 UNIT In D5W 100 / 100 100 / 100 Inj 98 ML @ 0.04 UNITS/MIN 6 mls/hr IV.CONT CONT DECLAN Rx#: [id number] Azithromycin Inj 500 MG In NS 250 / 250 Inj 250 ML @ 250 mls/hr IV.SIG HS DECLAN Rx#:[id number] Maxipime Inj 2,000 MG In NS Inj 100 / 100 100 / 100 100 ML @ 200 mls/hr IV.SIG Q12H DECLAN Rx#:[id number] NS Inj 1,000 ML @ 75 mls/hr IV. 1000 / 1000 SIG .[id number] DECLAN Rx#:[id number] Tube Feeding 287 / 287 Tube Irrigant 120 / 120 Output: Urine Amount (Catheter) 900 / 900 920 / 920 Indwelling Urethral Catheter 900 / 900 920 / 920 Gastric Drainage 100 / 100 Oral 100 / 100 Other: Date of Last Bowel Movement 05/18/18 05/18/18 05/18/18 # Bowel Movements 2 0 Result Diagrams: 05/18/18 07:30 05/19/18 04:37 Objective Remarks: General: frail critically ill elderly male, lying in bed, sedated and intubated. HEENT: nc. at. perrl. mmm. Neck: No JVD, trachea midline. Chest: on mech vent, equal chest rise. scattered rhonchi bilaterally. fio2 40% . spo2 97%. peep 5. CVS: normal rate, regular rhythm. appears sinus by telemetry. GI/abdomen: soft, nontender, nondistended. no guarding. Extremities: warm bilaterally, 1+ bilateral edema Neuro: RASS -4. sedated, intubated. pupils equal and reactive. withdraws to pain , does not follow commands. Assessment and Plan - Problem List (1) Hyperlipidemia Code(s): E78.5 - Hyperlipidemia, unspecified Status: Chronic (2) Essential hypertension Code(s): I10 - Essential (primary) hypertension Status: Acute (3) AAA (abdominal aortic aneurysm) without rupture Code(s): I71.4 - Abdominal aortic aneurysm, without rupture Status: Chronic (4) Adenocarcinoma of lung Code(s): C34.90 - Malignant neoplasm of unspecified part of unspecified bronchus or lung Status: Chronic (5) Acute and chronic respiratory failure with hypoxia Code(s): J96.21 - Acute and chronic respiratory failure with hypoxia Status: Acute (6) Tobacco use Code(s): Z72.0 - Tobacco use Status: Chronic (7) COPD (chronic obstructive pulmonary disease) Code(s): J44.9 - Chronic obstructive pulmonary disease, unspecified Status: Chronic - Assessment and Plan Plan: Assessment: 87yM with lung adenocarcinoma presents with acute hypoxic and hypercarbic respiratory failure, post-obstructive pneumonia, and associated septic shock. Clinically not improving: remains critically ill with little if any progress or improvements in last few days. Son continues to press on with aggressive measures at this time. Continue vasopressors and antibiotics for his shock. remains critical despite maximal therapy. Neuro/Psych: Acute metabolic encephalopathy Sedation while intubated. versed, fentanyl. daily sedation vacations goal RASS -2 off propofol due to hypotension. Acetaminophen 650 mg by mouth every 6 hours for Fever Hydrocodone/acetaminophen 5/325 one tab every 4 hours as needed pain 1 through 5 Morphine sulfate 2 mg IV every 2 hours as needed pain 6 -10 CV: Septic Shock, persistent. Hyperlipidemia Coronary artery disease Holding home medications of ramipril 5 mg daily and lovastatin 10 mg daily. Limited 2D echocardiogram revealed ejection fraction 55%. continue Levophed for goal map > 60 - renal function is improving and peripheral perfusion is compromised with rising vasopressors: must drop map goal from 65 to 60 to mitigate vasoconstriction. Resp: Acute hypoxic and hypercarbic respiratory failure, persistent Intubated and placed on mechanical ventilation on 05/16 Albuterol/ipratropium aerosols every 4 hours with albuterol aerosols every 2 hours as needed dyspnea budesonide/formoterol 160/4.5 2 puffs twice daily Consultation pulmonology/Dr. Cherry CT pulmonary angiogram revealed no evidence of pulmonary embolism. Right perihilar/peribronchial mass consistent with patient's known lung carcinoma is noted. Patchy infiltrates are noted within the lower lobes bilaterally consistent with probable pneumonia. Central bronchiectasis is noted bilaterally. Cardiomegaly and coronary artery calcifications. Cholelithiasis. Degenerative changes and kyphosis of the thoracic spine are noted. daily SBTs. wean fio2 for goal spo2 > 88% GI: Cholelithiasis Acute protein calorie malnutrition- severe Tube feeds of Jevity 1.5 starting at 20 cc an hour. If pressor requirement decreases will consider advancing to goal, but pressor requirement remains today. Pantoprazole for GI prophylaxis Docusate sodium/senna 1 tablet twice daily for bowel regimen : No indication for Montes De Oca catheter Endo: Hyperglycemia SSI to maintain euglycemia Renal: Creatinine currently within normal limits daily BMP Heme: History of adenocarcinoma the lung status post radiation therapy by Dr. Allen Macrocytic anemia Elevated PTT PET scan 03/2018 revealed 3 cm right upper lobe mass. Cytology revealed poorly differentiated adenocarcinoma. Monitor CBC daily. Follow trends ID: Likely community acquired pneumonia Day #6 vancomycin, cefepime and azithromycin Blood cultures 2: Results NGTD Negative urine Legionella pneumococcal antigens Influenza a and B and sputum ordered MSK: Kyphosis of thoracic spine Osteoarthritis PT evaluate and treat FEN: Hyponatremia Replace electrolytes as clinically indicated Access -Central line placed 05/16 Prophylaxis- GI -pantoprazole -DVT -SCD/enoxaparin remains full code. palliative following. critical care time: 31 minutes, exclusive of separately billable procedures. (7) COPD (chronic obstructive pulmonary disease) Qualifiers: COPD type: unspecified COPD Qualified Code(s): J44.9 - Chronic obstructive pulmonary disease, unspecified
[2018-05-19] MEDS: Sod Chloride 0.9% Inj 1,000 ML IV.SIG SCH ×2 (06:42→11:40)
[2018-05-19] MEDS: Insulin NovoLIN Regular Correctional Sugar Inj SQ SCH ×5 (08:25→20:53)
[2018-05-19] MEDS: Chlorhexidine Gluconate 2% 1 Pack (2 Cloths) TOPICAL SCH (08:30)
[2018-05-19] MEDS: Oral Hygiene Kit OROPHARYNG SCH ×4 (08:30→16:05)
[2018-05-19] MEDS: Chlorhexidine 0.12% Oral Kit 15 ML UDC OROPHARYNG SCH ×2 (09:14→20:37)
[2018-05-19] MEDS: Senna/Docusate Sodium 8.6/50 MG Tablet PO SCH ×2 (09:14→20:37)
[2018-05-19] MEDS: Artificial Tears Opth Drops 15 ML Bottle EACH EYE SCH ×3 (09:15→17:54)
[2018-05-19] MEDS: Budesonide-Formoterol 160/4.5 MCG 6 GM Inhaler INH SCH (10:46)
[2018-05-19] MEDS: MethylPREDNISolone Sod Succinate Inj 125 MG/2 ML Vial IV.PUSH SCH ×3 (10:58→22:37)
[2018-05-19] MEDS: Vasopressin Inj 40 UNIT in Dextrose 5% in Water Inj 98 ML IV.CONT SCH ×2 (12:51)
[2018-05-19] MEDS: Pantoprazole Inj 40 MG Vial IV.PUSH SCH (16:06)
[2018-05-19] MEDS: Azithromycin Inj 500 MG in Sodium Chlor 0.9% Inj 250 ML IV.SIG SCH (20:35)
[2018-05-20] MEDS: Budesonide-Formoterol 160/4.5 MCG 6 GM Inhaler INH SCH ×3 (01:08→22:19)
[2018-05-20] MEDS: Norepinephrine Inj 16 MG in Sodium Chlor 0.9% Inj 234 ML IV.CONT PRN (01:11)
[2018-05-20] MEDS: fentaNYL 10 mcg/mL Premix Drip 2,500 MCG/250 ML BAG IV.SIG PRN ×2 (01:13→04:32)
--- NOTE | 2018-05-20 04:34 | XR ---
EXAM DATE: 05/20/2018 4:30 AM EDT AGE/SEX: 87 years / Male INDICATIONS: Respiratory distress CLINICAL DATA: This is the patient's subsequent encounter. Patient reports that signs and symptoms h ave been present for 1 week and indicates a pain score of Nonresponsive. MEDICAL/SURGICAL HISTORY: . Aneurysm, abdominal. Right lung nodule None. COMPARISON: [facility], CHEST 1V SINGLE AP, 05/17/2018. [facility], CHEST 1V SINGLE AP, 05/16/2018. . FINDINGS: Right greater the left mid and lower lung consolidation again noted and not significantly changed. A small to moderate right and small left pleural effusion are likely. No pneumothorax seen. Mild cardiomegaly not significantly changed. Endotracheal tube tip is approximately 2.5 cm above the gaby. Nasogastric tube courses into the sto mach. There is a left internal jugular central venous catheter with tip in the superior vena cava. CONCLUSION: No significant change. Electronically signed by: Eliu Kirby MD 05/20/2018 4:33 AM EDT
[2018-05-20] MEDS: Oral Hygiene Kit OROPHARYNG SCH ×3 (04:45→18:49)
[2018-05-20] MEDS: Chlorhexidine Gluconate 2% 1 Pack (2 Cloths) TOPICAL SCH (04:46)
[2018-05-20] MEDS: Sod Chloride 0.9% Inj 1,000 ML IV.SIG SCH (05:21)
[2018-05-20] MEDS ORDERED: Albumin Human 25% Inj 100 ML IV.SIG ONE (07:06)
--- NOTE | 2018-05-20 07:18 | P.PNCC ---
Subjective Subjective Remarks/Hospital Course: 05/16: This is a 87-year-old male. Date of admission 05/14/2018. Past medical history includes COPD, did a course of the lung, AAA, glaucoma, osteoarthritis and stable AAA. 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 He has recently received radiation therapy by Dr. allen. He is followed by Dr. Cherry pulmonology. He was in the [facility] on 05/14 with acute onset of shortness of breath. He denies coughing/productive, congestion, fevers or chills. Denies chest pain. CT angiogram revealed no pulmonary embolism. Right upper lobe mass identified. Possible postobstructive pneumonia versus radiation pneumonitis. Patient receives norepinephrine drip to maintain mean atrial pressure and 65. Started on vancomycin, cefepime and azithromycin. 05/17: Remains sedated, orally intubated on mechanical ventilation. On Levophed/ vasopressin for pressor support. 05/18: no changes. remains on vasopressors. remains critically ill, intubated, sedated. Son is at bedside and states he understands how sick his father is but "chooses to remain hopefully optimistic". 05/19: no improvements. remains on vasopressors. mental status not improved. 05/20: fio2 rising. cxr with worsening pulmonary edema. still intermittently on vasopressors. failing cpap. no clinical improvements. Objective Vital Signs / I&O: Vital Signs 05/19/18 07:25 05/19/18 08:00 05/19/18 09:00 Temperature 36.6 C Pulse Rate 82 80 Respiratory Rate 19 26 H 19 Blood Pressure 98/46 L 108/52 L Pulse Oximetry 95 99 88 L 05/19/18 10:00 05/19/18 11:00 05/19/18 12:00 Temperature 36.6 C Pulse Rate 94 H 98 H 98 H Respiratory Rate 19 20 22 Blood Pressure 112/50 L 119/51 L 119/51 L Pulse Oximetry 94 L 98 98 05/19/18 13:00 05/19/18 13:43 05/19/18 14:00 Temperature 36.8 C Pulse Rate 96 H 96 H Respiratory Rate 21 22 21 Blood Pressure 122/50 L 127/48 L Pulse Oximetry 95 96 05/19/18 15:00 05/19/18 16:00 05/19/18 17:00 Temperature 36.7 C Pulse Rate 98 H 100 H 109 H Respiratory Rate 21 24 Blood Pressure 118/49 L 128/56 L 132/61 Pulse Oximetry 97 97 98 05/19/18 17:21 05/19/18 18:00 05/19/18 19:00 Temperature Pulse Rate 102 H Respiratory Rate 26 H 38 H Blood Pressure 134/62 Pulse Oximetry 99 100 05/19/18 19:25 05/19/18 19:27 05/19/18 19:30 Temperature 37.0 C Pulse Rate 103 H 106 H Respiratory Rate 26 H 26 H 30 H Blood Pressure 134/61 Pulse Oximetry 100 99 05/19/18 20:00 05/19/18 21:00 05/19/18 22:00 Temperature Pulse Rate 106 H 114 H 110 H Respiratory Rate 40 H 57 H 55 H Blood Pressure 135/62 136/67 134/62 Pulse Oximetry 96 100 100 05/19/18 22:04 05/19/18 22:30 05/19/18 23:00 Temperature Pulse Rate 120 H 122 H Respiratory Rate 27 H 54 H 51 H Blood Pressure 143/62 H 144/76 H Pulse Oximetry 100 100 96 05/19/18 23:10 05/19/18 23:30 05/20/18 00:00 Temperature 36.4 C Pulse Rate 119 H 106 H 104 H Respiratory Rate 33 H 30 H 29 H Blood Pressure 131/56 L 122/73 Pulse Oximetry 99 98 05/20/18 00:30 05/20/18 01:00 05/20/18 01:06 Temperature Pulse Rate 102 H Respiratory Rate 32 H 38 H Blood Pressure 135/71 135/71 Pulse Oximetry 98 93 L 05/20/18 01:30 05/20/18 02:00 05/20/18 02:57 Temperature Pulse Rate 104 H 100 H 100 H Respiratory Rate 33 H 35 H 24 Blood Pressure 119/60 115/59 L 116/60 Pulse Oximetry 98 97 05/20/18 03:30 05/20/18 03:40 05/20/18 04:00 Temperature Pulse Rate 100 H 101 H 100 H Respiratory Rate 30 H 20 28 H Blood Pressure 114/59 L 114/58 L Pulse Oximetry 97 98 05/20/18 04:03 05/20/18 04:30 05/20/18 05:00 Temperature Pulse Rate 104 H 100 H Respiratory Rate 19 19 18 Blood Pressure 118/61 119/60 Pulse Oximetry 97 98 97 05/20/18 06:00 05/20/18 06:26 05/20/18 06:30 Temperature Pulse Rate 114 H 110 H Respiratory Rate 18 28 H Blood Pressure 110/73 95/46 L Pulse Oximetry 94 L 93 L 93 L Intake & Output 05/19/18 05/20/18 05/20/18 18:59 06:59 18:59 Intake Total 1654 / 1654 1500 / 1500 Output Total 625 / 625 600 / 600 Balance 1029 / 1029 900 / 900 Weight 80.3 kg Intake: IV 1300 / 1300 1500 / 1500 Pitressin Inj 40 UNIT In D5W 100 / 100 Inj 98 ML @ 0.04 UNITS/MIN 6 mls/hr IV.CONT CONT DECLAN Rx#: [id number] Maxipime Inj 2,000 MG In NS Inj 200 / 200 100 ML @ 200 mls/hr IV.SIG Q12H DECLAN Rx#:[id number] NS Inj 1,000 ML @ 75 mls/hr IV. 1000 / 1000 1000 / 1000 SIG .[id number] DECLAN Rx#:[id number] fentaNYL 10 mcg/mL Premix Drip 500 / 500 2,500 mcg In 250 ml @ 50 MCG/HR 5 mls/hr IV.SIG TITRATE PRN Rx #:[id number] Tube Feeding 354 / 354 Output: Urine 625 / 625 Urine Amount (Catheter) 600 / 600 Indwelling Urethral Catheter 600 / 600 Other: Date of Last Bowel Movement 05/19/18 05/19/18 # Bowel Movements 1 Result Diagrams: 05/18/18 07:30 05/19/18 04:37 Objective Remarks: General: frail critically ill elderly male, lying in bed, sedated and intubated. HEENT: nc. at. perrl. mmm. Neck: No JVD, trachea midline. Chest: on mech vent, equal chest rise. scattered rhonchi bilaterally. fio2 40% . spo2 97%. peep 5. CVS: normal rate, regular rhythm. appears sinus by telemetry. GI/abdomen: soft, nontender, nondistended. no guarding. Extremities: warm bilaterally, 1+ bilateral edema Neuro: RASS -4. sedated, intubated. pupils equal and reactive. withdraws to pain , does not follow commands. Assessment and Plan - Problem List (1) Hyperlipidemia Code(s): E78.5 - Hyperlipidemia, unspecified Status: Chronic (2) Essential hypertension Code(s): I10 - Essential (primary) hypertension Status: Acute (3) AAA (abdominal aortic aneurysm) without rupture Code(s): I71.4 - Abdominal aortic aneurysm, without rupture Status: Chronic (4) Adenocarcinoma of lung Code(s): C34.90 - Malignant neoplasm of unspecified part of unspecified bronchus or lung Status: Chronic (5) Acute and chronic respiratory failure with hypoxia Code(s): J96.21 - Acute and chronic respiratory failure with hypoxia Status: Acute (6) Tobacco use Code(s): Z72.0 - Tobacco use Status: Chronic (7) COPD (chronic obstructive pulmonary disease) Code(s): J44.9 - Chronic obstructive pulmonary disease, unspecified Status: Chronic - Assessment and Plan Plan: Assessment: 87yM with lung adenocarcinoma presents with acute hypoxic and hypercarbic respiratory failure, post-obstructive pneumonia, and associated septic shock. Clinically not improving: remains critically ill with little if any progress or improvements in last few days. Son continues to press on with aggressive measures at this time. Continue vasopressors and antibiotics for his shock. remains critical despite maximal therapy. now will be forced to diurese given volume overload despite shock. very critically ill. Neuro/Psych: Acute metabolic encephalopathy Sedation while intubated. versed, fentanyl. daily sedation vacations goal RASS -2 off propofol due to hypotension. Acetaminophen 650 mg by mouth every 6 hours for Fever Hydrocodone/acetaminophen 5/325 one tab every 4 hours as needed pain 1 through 5 Morphine sulfate 2 mg IV every 2 hours as needed pain 6 -10 CV: Septic Shock, persistent. Hyperlipidemia Coronary artery disease Holding home medications of ramipril 5 mg daily and lovastatin 10 mg daily. Limited 2D echocardiogram revealed ejection fraction 55%. continue Levophed for goal map > 60 - renal function is improving and peripheral perfusion is compromised with rising vasopressors: must drop map goal from 65 to 60 to mitigate vasoconstriction. Resp: Acute hypoxic and hypercarbic respiratory failure, persistent Pulmonary Edema Intubated and placed on mechanical ventilation on 05/16 Albuterol/ipratropium aerosols every 4 hours with albuterol aerosols every 2 hours as needed dyspnea budesonide/formoterol 160/4.5 2 puffs twice daily Consultation pulmonology/Dr. Cherry CT pulmonary angiogram revealed no evidence of pulmonary embolism. Right perihilar/peribronchial mass consistent with patient's known lung carcinoma is noted. Patchy infiltrates are noted within the lower lobes bilaterally consistent with probable pneumonia. Central bronchiectasis is noted bilaterally. Cardiomegaly and coronary artery calcifications. Cholelithiasis. Degenerative changes and kyphosis of the thoracic spine are noted. daily SBTs. wean fio2 for goal spo2 > 88% lasix 40mg iv x 1 with concentrated albumin d/c mivf. GI: Cholelithiasis Acute protein calorie malnutrition- severe Tube feeds of Jevity 1.5 starting at 20 cc an hour. If pressor requirement decreases will consider advancing to goal, but pressor requirement remains today. Pantoprazole for GI prophylaxis Docusate sodium/senna 1 tablet twice daily for bowel regimen : No indication for [place] catheter Endo: Hyperglycemia SSI to maintain euglycemia Renal: Creatinine currently within normal limits daily BMP Heme: History of adenocarcinoma the lung status post radiation therapy by Dr. Allen Macrocytic anemia Elevated PTT PET scan 03/2018 revealed 3 cm right upper lobe mass. Cytology revealed poorly differentiated adenocarcinoma. Monitor CBC daily. Follow trends ID: Likely community acquired pneumonia Day #7 vancomycin, cefepime and azithromycin Blood cultures 2: Results NGTD Negative urine Legionella pneumococcal antigens Influenza a and B and sputum ordered MSK: Kyphosis of thoracic spine Osteoarthritis PT evaluate and treat FEN: Hyponatremia Replace electrolytes as clinically indicated Access -Central line placed 05/16 Prophylaxis- GI -pantoprazole -DVT -SCD/enoxaparin remains full code. palliative following. critical care time: 38 minutes, exclusive of separately billable procedures. (7) COPD (chronic obstructive pulmonary disease) Qualifiers: COPD type: unspecified COPD Qualified Code(s): J44.9 - Chronic obstructive pulmonary disease, unspecified
[2018-05-20 08:07] LABS: Hematocrit 31.5 % (39.0-51.0); Hemoglobin 10.8 gm/dL (13.0-17.0); Mean Corpuscular HGB Conc 34.2 % (32.0-36.0); Mean Corpuscular Hemoglobin 33.4 pg (27.0-34.0); Mean Corpuscular Volume 97.7 fL (80.0-100.0); Mean Platelet Volume 8.6 fL (7.0-11.0); Platelet Count 160 th/mm3 (150-450); Red Blood Count 3.22 mil/mm3 (4.50-5.90)
[2018-05-20 08:28] LABS: Anion Gap 9 meq/L (5-15); Blood Urea Nitrogen 26 mg/dL (7-18); Calcium 6.1 mg/dL (8.5-10.1); Carbon Dioxide 21.6 meq/L (21.0-32.0); Chloride 117 meq/L (98-107); Glucose,Random 181 mg/dL (74-106); Potassium 3.2 meq/L (3.5-5.1); Sodium 148 meq/L (136-145)
[2018-05-20] MEDS: Insulin NovoLIN Regular Correctional Sugar Inj SQ SCH ×4 (08:34→22:38)
[2018-05-20] MEDS: Senna/Docusate Sodium 8.6/50 MG Tablet PO SCH ×2 (08:40→22:19)
[2018-05-20 08:44] LABS: Glomerular Filtration Rate Greater Than 89 mL/min (>89); Total Protein 4.2 g/dL (6.4-8.2)
[2018-05-20] MEDS: MethylPREDNISolone Sod Succinate Inj 125 MG/2 ML Vial IV.PUSH SCH ×3 (08:45→22:20)
[2018-05-20] MEDS: Artificial Tears Opth Drops 15 ML Bottle EACH EYE SCH ×3 (09:16→22:17)
[2018-05-20] MEDS ORDERED: Metoprolol Inj 5 MG/5 ML Vial IV.PUSH ONE (12:33)
[2018-05-20] MEDS ORDERED: Potassium Chlor 20 mEq Premix 20 MEQ/100 ML PIGGYBACK IV.SIG PRN ×2 (14:01)
[2018-05-20] MEDS ORDERED: Potassium Chlor 40 mEq Premix 40 MEQ/100 ML PIGGYBACK IV.SIG PRN ×2 (14:01)
[2018-05-20] MEDS ORDERED: Magnesium Sulfate Inj 4 GM in Sodium Chlor 0.9% Inj 92 ML IV.SIG PRN (14:01)
[2018-05-20] MEDS ORDERED: Potassium Phosphate Inj 30 MMOL in Sodium Chlor 0.9% Inj 250 ML IV.SIG PRN (14:01)
[2018-05-20] MEDS ORDERED: Potassium Chloride 25 MEQ Effervescent Tablet PO PRN (14:01)
[2018-05-20] MEDS ORDERED: Magnesium Oxide 400 MG Tablet PO PRN (14:01)
[2018-05-20] MEDS ORDERED: Magnesium Sulfate Inj 2 GM in Sodium Chlor 0.9% Inj 96 ML IV.SIG PRN (14:01)
[2018-05-20] MEDS ORDERED: Potassium Phosphate 500 MG Soluble Tablet PO PRN ×2 (14:01)
[2018-05-20] MEDS ORDERED: Sodium Phosphate Inj 30 MMOL in Sodium Chlor 0.9% Inj 250 ML IV.SIG PRN (14:01)
--- NOTE | 2018-05-20 14:05 | P.PNPAL ---
Reason for Visit Reason for visit: a. To assist with evaluation and management of symptoms including: Dyspnea, pain b. To assist medical decision maker(s) with: better understanding of current medical conditions; weighing benefits/burdens of medical treatment options; making medical treatment decisions. Subjective Subjective/Interval History: Mr. Ray is an 87 year old male with adenocarcinoma of the lung who presented to [facility] ED on 05/14/2018 with acute hypoxic and hypercarbic respiratory failure, postobstructive pneumonia and associated septic shock. Duel visit with Jennifer Anaya, Palliative STORE RECEIVER, for symptom management and clarification of medical treatment goals. Patient seen and assessed in the intensive care unit, room 8405, in [place]. Patient son and daughter in law are at the bedside. He remains intubated on mechanical ventilation; failing CPAP trails. Increased oxygen requirements. FiO2 increased to 65%, PEEP 5. Follow-up chest x-ray on 2017 showing right > left mid and lower lung consolidation not significantly changed. A small to moderate right and small left pleural effusion are likely. No pneumothorax seen. Patient is agitated during sedation vacation. He does not arouse to verbal stimuli; does not follow commands. WBC: 6.0, hemoglobin 10.8, hematocrit 31.5, platelets 160, sodium 148, potassium 3.2, chloride 117, glucose 181, calcium 6.1, prot corrected calcium 7.5, BUN 26, creatinine 0.72, GFR> 89, total protein 4.2. Receiving supplemental potassium. Afebrile. Initial blood cultures growing Staphylococcus epidermidis; follow-up cultures remain negative today. Remains critical despite maximal therapy. Being diuresed for volume overload. Patient's 3 grand-children will be arriving today and tomorrow. Patient's son continues to verbalize aggressive goals. It is unclear if the son would consent to PEG/trach if indicated. In previous conversations, son (Jaziel) stated, "my dad is not a quitter. He would want to give this a shot, but I also know how he would want to live." Jaziel states the patient's senior systems administrator, Dr. Cherry, encouraged them to give the patient's a few more days before making in changes in the medical treatment goals in the hopes that the patient can be medically extubated. Palliative care will follow up on [place] 7/9/18 Family/Friend Interactions: See interval history Advance Directives Health Care Surrogate Name and Number: HCP: Jaziel Ray (son) [phone] Objective Vital Signs: Vital Signs 05/19/18 14:00 05/19/18 15:00 05/19/18 16:00 Temperature 98.1 F Pulse Rate 96 H 98 H 100 H Respiratory Rate 21 21 Blood Pressure 127/48 L 118/49 L 128/56 L Pulse Oximetry 96 97 97 05/19/18 17:00 05/19/18 17:21 05/19/18 18:00 Temperature Pulse Rate 109 H 102 H Respiratory Rate 24 26 H 38 H Blood Pressure 132/61 134/62 Pulse Oximetry 98 99 05/19/18 19:00 05/19/18 19:25 05/19/18 19:27 Temperature Pulse Rate 103 H Respiratory Rate 26 H 26 H Blood Pressure Pulse Oximetry 100 100 05/19/18 19:30 05/19/18 20:00 05/19/18 21:00 Temperature 98.6 F Pulse Rate 106 H 106 H 114 H Respiratory Rate 30 H 40 H 57 H Blood Pressure 134/61 135/62 136/67 Pulse Oximetry 99 96 100 05/19/18 22:00 05/19/18 22:04 05/19/18 22:30 Temperature Pulse Rate 110 H 120 H Respiratory Rate 55 H 27 H 54 H Blood Pressure 134/62 143/62 H Pulse Oximetry 100 100 100 05/19/18 23:00 05/19/18 23:10 05/19/18 23:30 Temperature Pulse Rate 122 H 119 H 106 H Respiratory Rate 51 H 33 H 30 H Blood Pressure 144/76 H 131/56 L Pulse Oximetry 96 99 05/20/18 00:00 05/20/18 00:30 05/20/18 01:00 Temperature 97.6 F Pulse Rate 104 H 102 H Respiratory Rate 29 H 32 H Blood Pressure 122/73 135/71 135/71 Pulse Oximetry 98 98 05/20/18 01:06 05/20/18 01:30 05/20/18 02:00 Temperature Pulse Rate 104 H 100 H Respiratory Rate 38 H 33 H 35 H Blood Pressure 119/60 115/59 L Pulse Oximetry 93 L 98 97 05/20/18 02:57 05/20/18 03:30 05/20/18 03:40 Temperature Pulse Rate 100 H 100 H 101 H Respiratory Rate 24 30 H 20 Blood Pressure 116/60 114/59 L Pulse Oximetry 97 05/20/18 04:00 05/20/18 04:03 05/20/18 04:30 Temperature Pulse Rate 100 H 104 H Respiratory Rate 28 H 19 19 Blood Pressure 114/58 L 118/61 Pulse Oximetry 98 97 98 05/20/18 05:00 05/20/18 06:00 05/20/18 06:26 Temperature Pulse Rate 100 H 114 H Respiratory Rate 18 18 Blood Pressure 119/60 110/73 Pulse Oximetry 97 94 L 93 L 05/20/18 06:30 05/20/18 07:00 05/20/18 07:05 Temperature Pulse Rate 110 H 108 H 108 H Respiratory Rate 28 H 33 H 27 H Blood Pressure 95/46 L 92/46 L 89/43 L Pulse Oximetry 93 L 93 L 94 L 05/20/18 07:13 05/20/18 07:19 05/20/18 07:30 Temperature Pulse Rate 106 H 94 H 104 H Respiratory Rate 32 H 31 H 28 H Blood Pressure 87/44 L 89/46 L 97/49 L Pulse Oximetry 94 L 94 L 94 L 05/20/18 08:00 05/20/18 08:07 05/20/18 08:22 Temperature 98.0 F Pulse Rate 96 H 96 H 98 H Respiratory Rate 28 H 18 24 Blood Pressure 94/47 L 94/48 L Pulse Oximetry 96 97 05/20/18 08:30 05/20/18 09:00 05/20/18 09:30 Temperature Pulse Rate 80 80 108 H Respiratory Rate 23 20 24 Blood Pressure 93/49 L 125/70 Pulse Oximetry 97 99 95 05/20/18 11:20 05/20/18 11:34 05/20/18 12:00 Temperature 97.9 F Pulse Rate 135 H 120 H Respiratory Rate 14 30 H 28 H Blood Pressure 137/65 Pulse Oximetry 93 L Intake & Output 05/19/18 05/20/18 05/20/18 18:59 06:59 18:59 Intake Total 1654 / 1654 1600 / 1600 Output Total 625 / 625 600 / 600 1600 / 1600 Balance 1029 / 1029 1000 / 1000 -1600 / -1600 Weight 80.3 kg Intake: IV 1300 / 1300 1600 / 1600 Pitressin Inj 40 UNIT In D5W 100 / 100 Inj 98 ML @ 0.04 UNITS/MIN 6 mls/hr IV.CONT CONT DECLAN Rx#: [id number] Maxipime Inj 2,000 MG In NS Inj 200 / 200 100 / 100 100 ML @ 200 mls/hr IV.SIG Q12H DECLAN Rx#:[id number] NS Inj 1,000 ML @ 75 mls/hr IV. 1000 / 1000 1000 / 1000 SIG .[id number] DECLAN Rx#:[id number] fentaNYL 10 mcg/mL Premix Drip 500 / 500 2,500 mcg In 250 ml @ 50 MCG/HR 5 mls/hr IV.SIG TITRATE PRN Rx #:[id number] Tube Feeding 354 / 354 Output: Urine 625 / 625 Urine Amount (Catheter) 600 / 600 1600 / 1600 Indwelling Urethral Catheter 600 / 600 1600 / 1600 Other: Date of Last Bowel Movement 05/19/18 05/19/18 05/19/18 # Bowel Movements 1 Physical Exam: CONSTITUTIONAL/GENERAL: This is an adequately nourished, elderly, male patient currently intubated on mechanical ventilation TUBES/LINES/DRAINS: ETT, OGT, PIV 2, CVL, [place] catheter, SCDs SKIN: No jaundice, rashes, or lesions. Ecchymoses on upper extremities bilaterally. Skin temperature appropriate. Not diaphoretic. HEAD: Atraumatic. Normocephalic. EYES: No scleral icterus. No injection or drainage. Fundi not examined. ENT: Unable to assess hearing nose without bleeding or purulent drainage. Tongue, oral mucosa moist. NECK: Trachea midline. Supple, nontender. CARDIOVASCULAR: Regular rate and rhythm without murmurs, gallops, or rubs. No JVD. Peripheral pulses symmetric. RESPIRATORY/CHEST: Intubated on mechanical ventilation. Scattered rhonchi. GASTROINTESTINAL: Abdomen soft, non-tender, nondistended. No hepato-splenomegaly , or palpable masses. No guarding. Bowel sounds present. GENITOURINARY: Without palpable bladder distension. [place] catheter in place. MUSCULOSKELETAL: Extremities without clubbing or cyanosis. No obvious deformities. Trace edema LYMPHATICS: No palpable cervical or supraclavicular adenopathy. NEUROLOGICAL: Agitated off sedation PSYCHIATRIC: No obvious anxiety/depression. No apparent hallucinations or other psychotic thought process. Diagnostic Tests Laboratory: Laboratory Results - last 72 hr 05/17/18 05/17/18 05/17/18 13:26 17:35 22:49 WBC RBC Hgb Hct MCV MCH MCHC RDW Plt Count MPV Sodium Potassium Chloride Carbon Dioxide Anion Gap BUN Creatinine Estimated GFR POC Glucose 126 H 123 H 144 H Random Glucose Calcium Prot Corrected Calcium Total Protein Nasal Screen MRSA (PCR) Vancomycin Trough 05/18/18 05/18/18 05/18/18 00:25 07:30 07:30 WBC 6.7 RBC 3.63 L Hgb 12.1 L Hct 36.2 L MCV 99.9 MCH 33.2 MCHC 33.3 RDW 16.4 Plt Count 137 L MPV 7.9 Sodium 138 Potassium 4.3 Chloride 107 Carbon Dioxide 23.3 Anion Gap 8 BUN 20 H Creatinine 0.98 Estimated GFR 73 L POC Glucose Random Glucose 136 H Calcium 7.5 L Prot Corrected Calcium Total Protein Nasal Screen MRSA (PCR) Vancomycin Trough 11.1 H 05/18/18 05/18/18 05/18/18 08:36 09:10 13:38 WBC RBC Hgb Hct MCV MCH MCHC RDW Plt Count MPV Sodium Potassium Chloride Carbon Dioxide Anion Gap BUN Creatinine Estimated GFR POC Glucose 144 H 181 H Random Glucose Calcium Prot Corrected Calcium Total Protein Nasal Screen MRSA (PCR) Not detected Vancomycin Trough 05/18/18 05/18/18 05/19/18 17:47 21:36 04:37 WBC RBC Hgb Hct MCV MCH MCHC RDW Plt Count MPV Sodium Potassium Chloride Carbon Dioxide Anion Gap BUN Creatinine 0.93 Estimated GFR 77 L POC Glucose 172 H 138 H Random Glucose Calcium Prot Corrected Calcium Total Protein Nasal Screen MRSA (PCR) Vancomycin Trough 05/19/18 05/19/18 05/19/18 08:17 12:04 12:07 WBC RBC Hgb Hct MCV MCH MCHC RDW Plt Count MPV Sodium Potassium Chloride Carbon Dioxide Anion Gap BUN Creatinine Estimated GFR POC Glucose 146 H 225 H 212 H Random Glucose Calcium Prot Corrected Calcium Total Protein Nasal Screen MRSA (PCR) Vancomycin Trough 05/19/18 05/19/18 05/20/18 16:07 20:43 07:30 WBC 6.0 RBC 3.22 L Hgb 10.8 L Hct 31.5 L MCV 97.7 MCH 33.4 MCHC 34.2 RDW 17.0 Plt Count 160 MPV 8.6 Sodium Potassium Chloride Carbon Dioxide Anion Gap BUN Creatinine Estimated GFR POC Glucose 234 H 222 H Random Glucose Calcium Prot Corrected Calcium Total Protein Nasal Screen MRSA (PCR) Vancomycin Trough 05/20/18 05/20/18 05/20/18 07:30 07:55 11:27 WBC RBC Hgb Hct MCV MCH MCHC RDW Plt Count MPV Sodium 148 H D Potassium 3.2 L D Chloride 117 H D Carbon Dioxide 21.6 Anion Gap 9 BUN 26 H Creatinine 0.72 Estimated GFR Greater than 89 POC Glucose 188 H 262 H Random Glucose 181 H Calcium 6.1 L* D Prot Corrected Calcium 7.5 L Total Protein 4.2 L D Nasal Screen MRSA (PCR) Vancomycin Trough Result Diagrams: 05/20/18 07:30 05/20/18 07:30 Microbiology: Microbiology 05/16/18 07:50 Aerobic Blood Culture - Preliminary Blood - Peripheral No growth in 4 days Anaerobic Blood Culture - Preliminary No growth in 4 days 05/16/18 07:39 Aerobic Blood Culture - Preliminary Blood - Peripheral No growth in 4 days Anaerobic Blood Culture - Preliminary No growth in 4 days 05/16/18 12:55 Gram Stain - Final Sputum - Expectorated Sputum Sputum Culture - Final Rare growth normal respiratory tiffanie Imaging: Chest X-Ray 05/20/18 05:00 CONCLUSION: No significant change. Procedures: 05/16/2018: Intubation 05/16/2018: Left IJ central line Assessment and Plan - Disease Oriented Problem List (1) COPD (chronic obstructive pulmonary disease) (2) Adenocarcinoma of lung (3) Acute and chronic respiratory failure with hypoxia (4) AAA (abdominal aortic aneurysm) without rupture (5) Essential hypertension (6) Hyperlipidemia (7) Tobacco use Pertinent Non-Medical Issues: Psychosocial: Patient is originally from [place]. He was 1 of 8 children; all of his siblings are . 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 He moved to [place] approximately 4 years ago. Patient is ; his 4 years ago from Alzheimer's disease. He lives alone, but his son lives locally and helps considerably. 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 Spiritual: [employer]ology [place] Legal: Per [place] statutes, in the absence of written advanced directives healthcare proxy decision making falls to the patient's son, Jaziel. Ethical issues impacting care: No known ethical issues impacting care at this time. Important Contacts: Jaziel Ray son: [phone] Prognosis: Patient is an 87-year-old male who was recently diagnosed with adenocarcinoma of the lungs. He is currently intubated, requiring mechanical ventilation secondary to septic shock. He remains hypotensive requiring Levophed and vasopressin for pressor support. Given patient's advanced age, multiple comorbid conditions and recent acute decline, he is at high risk for complications. . Code Status: Full Code Plan: * FULL CODE * Decision-making: Given patient's current clinical condition, he is not capacitated to participate in medical decision making. Per [place] statutes, in the absence of written advanced directives healthcare proxy decision making falls to the patient's only child, Jaziel Ray * Patient's 3 grand-children will be arriving today and tomorrow. Patient's son continues to verbalize aggressive goals. It is unclear if the son would consent to PEG/trach if indicated. In previous conversations, son (Jaziel) stated, "my dad is not a quitter. He would want to give this a shot, but I also know how he would want to live." Jaziel states the patient's senior systems administrator, Dr. Cherry, encouraged them to give the patient's a few more days before making in changes in the medical treatment goals in the hopes that the patient can be medically extubated. Palliative care will follow up on Wednesday05/23/18 * Discussed patient with bedside nurse and Dr. Anaya * SYMPTOM MANAGEMENT: dyspnea:Recently diagnosed with adenocarcinoma of the lungs in Mar, 2018. Presented to [facility] ED on 05/14/2018 with shortness of breath. Currently intubated on mechanical ventilation secondary to acute hypoxemic respiratory failure with increasing oxygen requirements pain: Multifactoral. Contributing factors may include recently diagnosed adenocarcinoma of the lung status post radiation therapy, pneumonia, constipation, invasive lines, immobility, intubation. Patient showing no nonverbal signs or symptoms of distress on exam. Currently of fentanyl and Versed. PRN [place] 5/325 is available every 4 hours PRN for pain scale 1-5; morphine 2 mg IV every 2 hours PRN for pain scale 6-10. Palliative care will monitor PRN requirements and make recommendations as indicated. * Palliative care will continue to follow this patient throughout his hospitalization to establish trust, assist with symptom management and clarification of medical treatment goals Attestation Attestation: To help prompt me to consider important information that might be impacting today's encounter and assessment, information from prior notes written by myself or my colleagues may have been "brought forward" into today's note. My signature on this note, however, is an attestation that I personally performed the exam, history, and/or decision-making noted today, and, unless otherwise indicated, the interactions with patient, family, and staff as well as the review of records all occurred today. I also attest that the listed assessment and stated plan reflect my best clinical judgment today based on the combination of historical information, prior notes, and today's exam/ interactions. When time spent is documented, it refers only to time spent today by the signer, or if indicated, combined time spent today by collaborating physician/nurse practitioner.
[2018-05-20] MEDS: Pantoprazole Inj 40 MG Vial IV.PUSH SCH (17:39)
[2018-05-20] MEDS: Dexmedetomidine Inj 200 MCG/50 ML INFUS..BTL IV.CONT PRN ×2 (18:53→22:43)
[2018-05-20] MEDS: Chlorhexidine 0.12% Oral Kit 15 ML UDC OROPHARYNG SCH (22:17)
[2018-05-20] MEDS: Azithromycin Inj 500 MG in Sodium Chlor 0.9% Inj 250 ML IV.SIG SCH (22:18)
[2018-05-21] MEDS: Vancomycin Inj 1,250 MG in Sodium Chlor 0.9% Inj 250 ML IV.SIG SCH (00:17)
[2018-05-21] MEDS: Oral Hygiene Kit OROPHARYNG SCH ×5 (02:25→21:13)
[2018-05-21] MEDS: Chlorhexidine Gluconate 2% 1 Pack (2 Cloths) TOPICAL SCH (03:49)
[2018-05-21] MEDS: Dexmedetomidine Inj 200 MCG/50 ML INFUS..BTL IV.CONT PRN ×2 (04:04→10:33)
[2018-05-21] MEDS: MethylPREDNISolone Sod Succinate Inj 125 MG/2 ML Vial IV.PUSH SCH ×3 (06:07→21:24)
[2018-05-21] MEDS ORDERED: Dexmedetomidine Inj 200 MCG/50 ML INFUS..BTL IV.CONT PRN ×2 (07:32→15:35)
[2018-05-21 09:19] LABS: Hematocrit 34.3 % (39.0-51.0); Hemoglobin 12.1 gm/dL (13.0-17.0); Mean Corpuscular HGB Conc 35.3 % (32.0-36.0); Mean Corpuscular Hemoglobin 34.5 pg (27.0-34.0); Mean Corpuscular Volume 97.8 fL (80.0-100.0); Platelet Count 145 th/mm3 (150-450); Red Blood Count 3.51 mil/mm3 (4.50-5.90); Red Cell Distribution Width 17.2 % (11.6-17.2); White Blood Count 8.4 th/mm3 (4.0-11.0)
[2018-05-21 10:17] LABS: Potassium 3.4 meq/L (3.5-5.1)
[2018-05-21] MEDS: Insulin NovoLIN Regular Correctional Sugar Inj SQ SCH ×3 (10:19→21:51)
[2018-05-21 10:20] LABS: Calcium 6.2 mg/dL (8.5-10.1); Carbon Dioxide 24.3 meq/L (21.0-32.0)
[2018-05-21] MEDS: Senna/Docusate Sodium 8.6/50 MG Tablet PO SCH ×2 (10:23→21:24)
[2018-05-21 10:34] LABS: Total Protein 4.9 g/dL (6.4-8.2)
[2018-05-21] MEDS: Chlorhexidine 0.12% Oral Kit 15 ML UDC OROPHARYNG SCH ×3 (10:49→21:24)
[2018-05-21] MEDS: Budesonide-Formoterol 160/4.5 MCG 6 GM Inhaler INH SCH ×2 (10:49→21:26)
[2018-05-21] MEDS: Artificial Tears Opth Drops 15 ML Bottle EACH EYE SCH ×2 (10:49→13:40)
[2018-05-21] MEDS ORDERED: DEXMEDETOMIDINE IV.CONT PRN (10:54)
[2018-05-21] MEDS ORDERED: SODIUM CHLOR 0.9% IV.CONT PRN (10:54)
--- NOTE | 2018-05-21 15:35 | P.PNCC ---
Subjective Subjective Remarks/Hospital Course: 05/16: This is a 87-year-old male. Date of admission 05/14/2018. Past medical history includes COPD, did a course of the lung, AAA, glaucoma, osteoarthritis and stable AAA. 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 He has recently received radiation therapy by Dr. allen. He is followed by Dr. Cherry pulmonology. He was in the [facility] on 05/14 with acute onset of shortness of breath. He denies coughing/productive, congestion, fevers or chills. Denies chest pain. CT angiogram revealed no pulmonary embolism. Right upper lobe mass identified. Possible postobstructive pneumonia versus radiation pneumonitis. Patient receives norepinephrine drip to maintain mean atrial pressure and 65. Started on vancomycin, cefepime and azithromycin. 05/17: Remains sedated, orally intubated on mechanical ventilation. On Levophed/ vasopressin for pressor support. 05/18: no changes. remains on vasopressors. remains critically ill, intubated, sedated. Son is at bedside and states he understands how sick his father is but "chooses to remain hopefully optimistic". 05/19: no improvements. remains on vasopressors. mental status not improved. 05/20: fio2 rising. cxr with worsening pulmonary edema. still intermittently on vasopressors. failing cpap. no clinical improvements. 05/21: Remains sedated/encephalopathic, orally intubated on mechanical ventilation. Objective Vital Signs / I&O: Vital Signs 05/20/18 15:59 05/20/18 16:00 05/20/18 16:54 Temperature Pulse Rate 118 H 116 H 112 H Respiratory Rate 58 H 56 H 36 H Blood Pressure 140/69 140/66 Pulse Oximetry 99 98 99 05/20/18 17:00 05/20/18 17:38 05/20/18 17:40 Temperature Pulse Rate 116 H 118 H 114 H Respiratory Rate 43 H 38 H 41 H Blood Pressure 143/66 H 137/62 Pulse Oximetry 97 100 98 05/20/18 17:45 05/20/18 17:50 05/20/18 17:55 Temperature Pulse Rate 116 H 114 H 118 H Respiratory Rate 29 H 26 H 28 H Blood Pressure 138/65 138/62 142/66 H Pulse Oximetry 99 99 98 05/20/18 18:00 05/20/18 18:05 05/20/18 18:10 Temperature Pulse Rate 108 H 108 H 112 H Respiratory Rate 24 23 28 H Blood Pressure 120/68 110/58 L 119/64 Pulse Oximetry 99 99 99 05/20/18 18:15 05/20/18 18:23 05/20/18 18:27 Temperature 98.5 F Pulse Rate 110 H Respiratory Rate 24 28 H Blood Pressure 115/58 L Pulse Oximetry 99 95 05/20/18 19:00 05/20/18 19:05 05/20/18 19:19 Temperature Pulse Rate 112 H 114 H Respiratory Rate 27 H 29 H 29 H Blood Pressure 133/62 138/60 Pulse Oximetry 97 97 98 05/20/18 19:20 05/20/18 19:30 05/20/18 19:40 Temperature Pulse Rate 110 H 110 H 108 H Respiratory Rate 30 H 27 H 28 H Blood Pressure 123/60 111/56 L 115/56 L Pulse Oximetry 98 99 98 05/20/18 21:55 05/20/18 22:00 05/20/18 22:10 Temperature Pulse Rate 66 68 110 H Respiratory Rate 25 H 25 H 45 H Blood Pressure 94/47 L 102/66 140/69 Pulse Oximetry 100 100 100 05/20/18 22:20 05/20/18 22:21 05/20/18 22:40 Temperature Pulse Rate 110 H 110 H Respiratory Rate 42 H 32 H 34 H Blood Pressure 133/66 124/66 Pulse Oximetry 100 100 99 05/20/18 23:00 05/20/18 23:20 05/20/18 23:35 Temperature Pulse Rate 108 H 100 H 88 Respiratory Rate 33 H 56 H 35 H Blood Pressure 106/68 97/56 L 94/54 L Pulse Oximetry 100 100 100 05/20/18 23:46 05/20/18 23:50 05/21/18 00:00 Temperature 98.2 F Pulse Rate 90 96 H 74 Respiratory Rate 28 H 40 H 40 H Blood Pressure 101/65 94/52 L Pulse Oximetry 99 93 L 05/21/18 00:25 05/21/18 00:40 05/21/18 00:45 Temperature Pulse Rate 104 H 90 104 H Respiratory Rate 49 H 57 H 63 H Blood Pressure 118/66 Pulse Oximetry 97 100 100 05/21/18 00:55 05/21/18 01:00 05/21/18 01:12 Temperature Pulse Rate 58 L 56 L Respiratory Rate 27 H 27 H Blood Pressure 89/41 L 85/42 L Pulse Oximetry 100 100 05/21/18 01:15 05/21/18 01:20 05/21/18 01:30 Temperature Pulse Rate 56 L 54 L Respiratory Rate 33 H 28 H Blood Pressure 80/40 L 86/43 L Pulse Oximetry 100 100 05/21/18 01:35 05/21/18 01:40 05/21/18 01:45 Temperature Pulse Rate 56 L 104 H 104 H Respiratory Rate 27 H 58 H 73 H Blood Pressure 91/44 L 125/63 135/69 Pulse Oximetry 100 99 100 05/21/18 01:50 05/21/18 01:53 05/21/18 02:00 Temperature Pulse Rate 102 H Respiratory Rate 85 H 36 H Blood Pressure 135/75 150/71 H Pulse Oximetry 100 99 05/21/18 02:04 05/21/18 02:15 05/21/18 03:00 Temperature Pulse Rate 114 H 116 H 90 Respiratory Rate 69 H 77 H 34 H Blood Pressure 133/63 137/74 99/47 L Pulse Oximetry 99 97 95 05/21/18 03:21 05/21/18 04:01 05/21/18 04:05 Temperature 98.0 F Pulse Rate 114 H 112 H Respiratory Rate 34 H 74 H 36 H Blood Pressure 123/69 Pulse Oximetry 97 98 05/21/18 04:11 05/21/18 04:16 05/21/18 04:21 Temperature Pulse Rate 110 H 110 H 110 H Respiratory Rate 69 H 85 H 77 H Blood Pressure 131/60 128/59 L 132/65 Pulse Oximetry 97 96 96 05/21/18 04:26 05/21/18 04:31 05/21/18 04:36 Temperature Pulse Rate 110 H 78 74 Respiratory Rate 88 H 55 H 36 H Blood Pressure 125/61 112/53 L 101/48 L Pulse Oximetry 96 94 L 94 L 05/21/18 04:41 05/21/18 04:46 05/21/18 04:51 Temperature Pulse Rate 78 76 70 Respiratory Rate 49 H 48 H 47 H Blood Pressure 100/49 L 97/49 L 92/48 L Pulse Oximetry 95 94 L 95 05/21/18 04:56 05/21/18 05:00 05/21/18 05:01 Temperature Pulse Rate 74 68 74 Respiratory Rate 35 H 36 H 46 H Blood Pressure 90/47 L 93/47 L Pulse Oximetry 95 95 95 05/21/18 06:01 05/21/18 06:06 05/21/18 06:11 Temperature Pulse Rate 110 H 110 H 110 H Respiratory Rate 46 H 84 H 75 H Blood Pressure 142/71 H 140/65 133/68 Pulse Oximetry 97 97 96 05/21/18 06:16 05/21/18 07:00 05/21/18 07:45 Temperature Pulse Rate 112 H 106 H Respiratory Rate 56 H 32 H Blood Pressure 142/83 H Pulse Oximetry 93 L 95 94 L 05/21/18 07:59 05/21/18 08:59 05/21/18 09:00 Temperature Pulse Rate 106 H 104 H 106 H Respiratory Rate 34 H 34 H 34 H Blood Pressure 131/70 132/73 Pulse Oximetry 96 97 97 05/21/18 11:20 05/21/18 14:51 Temperature Pulse Rate Respiratory Rate 34 H Blood Pressure Pulse Oximetry 94 L 99 Intake & Output 05/20/18 05/21/18 05/21/18 18:59 06:59 18:59 Intake Total 100 / 100 200 / 200 Output Total 2149 Balance -2049 / -2049 -1799 / -1800 Weight 82.1 kg 80.5 kg Intake: IV 100 / 100 200 / 200 Precedex Inj 200 mcg In 50 ml @ 100 / 100 0.2 MCG/KG/HR 4.015 mls/hr IV. CONT TITRATE PRN Rx#:[id number] Maxipime Inj 2,000 MG In NS Inj 100 / 100 100 / 100 100 ML @ 200 mls/hr IV.SIG Q12H DECLAN Rx#:[id number] Output: Urine Amount (Catheter) 2149 Indwelling Urethral Catheter 2149 Other: Date of Last Bowel Movement 05/19/18 05/20/18 05/21/18 Result Diagrams: 05/21/18 08:05 05/21/18 08:05 Objective Remarks: General: frail critically ill elderly male, lying in bed, sedated and intubated. HEENT: nc. at. perrl. mmm. Neck: No JVD, trachea midline. Chest: on mech vent, equal chest rise. scattered rhonchi bilaterally. fio2 40% . spo2 97%. peep 5. CVS: normal rate, regular rhythm. appears sinus by telemetry. GI/abdomen: soft, nontender, nondistended. no guarding. Extremities: warm bilaterally, 1+ bilateral edema Neuro: RASS -4. sedated, intubated. pupils equal and reactive. withdraws to pain , does not follow commands. Assessment and Plan - Problem List (1) Hyperlipidemia Code(s): E78.5 - Hyperlipidemia, unspecified Status: Chronic (2) Essential hypertension Code(s): I10 - Essential (primary) hypertension Status: Acute (3) AAA (abdominal aortic aneurysm) without rupture Code(s): I71.4 - Abdominal aortic aneurysm, without rupture Status: Chronic (4) Adenocarcinoma of lung Code(s): C34.90 - Malignant neoplasm of unspecified part of unspecified bronchus or lung Status: Chronic (5) Acute and chronic respiratory failure with hypoxia Code(s): J96.21 - Acute and chronic respiratory failure with hypoxia Status: Acute (6) Tobacco use Code(s): Z72.0 - Tobacco use Status: Chronic (7) COPD (chronic obstructive pulmonary disease) Code(s): J44.9 - Chronic obstructive pulmonary disease, unspecified Status: Chronic - Assessment and Plan Plan: Assessment: 87yM with lung adenocarcinoma presents with acute hypoxic and hypercarbic respiratory failure, post-obstructive pneumonia, and associated septic shock. Clinically not improving: remains critically ill with little if any progress or improvements in last few days. Son continues to press on with aggressive measures at this time. Continue vasopressors and antibiotics for his shock. remains critical despite maximal therapy. now will be forced to diurese given volume overload despite shock. very critically ill. Neuro/Psych: Acute metabolic encephalopathy Sedation while intubated. versed, fentanyl. daily sedation vacations goal RASS -2 off propofol due to hypotension. Acetaminophen 650 mg by mouth every 6 hours for Fever Hydrocodone/acetaminophen 5/325 one tab every 4 hours as needed pain 1 through 5 Morphine sulfate 2 mg IV every 2 hours as needed pain 6 -10 CV: Septic Shock, persistent. Hyperlipidemia Coronary artery disease Holding home medications of ramipril 5 mg daily and lovastatin 10 mg daily. Limited 2D echocardiogram revealed ejection fraction 55%. continue Levophed for goal map > 60 - renal function is improving and peripheral perfusion is compromised with rising vasopressors: must drop map goal from 65 to 60 to mitigate vasoconstriction. Resp: Acute hypoxic and hypercarbic respiratory failure, persistent Pulmonary Edema Intubated and placed on mechanical ventilation on 05/16 Albuterol/ipratropium aerosols every 4 hours with albuterol aerosols every 2 hours as needed dyspnea budesonide/formoterol 160/4.5 2 puffs twice daily Consultation pulmonology/Dr. Cherry CT pulmonary angiogram revealed no evidence of pulmonary embolism. Right perihilar/peribronchial mass consistent with patient's known lung carcinoma is noted. Patchy infiltrates are noted within the lower lobes bilaterally consistent with probable pneumonia. Central bronchiectasis is noted bilaterally. Cardiomegaly and coronary artery calcifications. Cholelithiasis. Degenerative changes and kyphosis of the thoracic spine are noted. daily SBTs. wean fio2 for goal spo2 > 88% lasix 40mg iv x 1 with concentrated albumin d/c mivf. GI: Cholelithiasis Acute protein calorie malnutrition- severe Tube feeds of Jevity 1.5 starting at 20 cc an hour. If pressor requirement decreases will consider advancing to goal, but pressor requirement remains today. Pantoprazole for GI prophylaxis Docusate sodium/senna 1 tablet twice daily for bowel regimen : No indication for Montes De Oca catheter Endo: Hyperglycemia SSI to maintain euglycemia Renal: Creatinine currently within normal limits daily BMP Heme: History of adenocarcinoma the lung status post radiation therapy by Dr. Allen Macrocytic anemia Elevated PTT PET scan 03/2018 revealed 3 cm right upper lobe mass. Cytology revealed poorly differentiated adenocarcinoma. Monitor CBC daily. Follow trends ID: Likely community acquired pneumonia Day #7 vancomycin, cefepime and azithromycin Blood cultures 2: Results NGTD Negative urine Legionella pneumococcal antigens Influenza a and B and sputum ordered MSK: Kyphosis of thoracic spine Osteoarthritis PT evaluate and treat FEN: Hyponatremia Replace electrolytes as clinically indicated Access -Central line placed 05/16 Prophylaxis- GI -pantoprazole -DVT -SCD/enoxaparin remains full code. palliative following. Discussed with patient's son at bedside. critical care time: 30 minutes, exclusive of separately billable procedures. (7) COPD (chronic obstructive pulmonary disease) Qualifiers: COPD type: unspecified COPD Qualified Code(s): J44.9 - Chronic obstructive pulmonary disease, unspecified
[2018-05-21] MEDS: Pantoprazole Inj 40 MG Vial IV.PUSH SCH (16:34)
[2018-05-21] MEDS: Dextrose 5% in Water Inj 1,000 ML IV.CONT SCH (16:50)
[2018-05-21] MEDS: SODIUM CHLOR 0.9% IV.CONT PRN (19:33)
[2018-05-21] MEDS: DEXMEDETOMIDINE IV.CONT PRN (19:33)
[2018-05-21] MEDS: Azithromycin Inj 500 MG in Sodium Chlor 0.9% Inj 250 ML IV.SIG SCH (21:22)
[2018-05-21] MEDS ORDERED: Pharmacy Ordered Lab Info OTHER ONE (22:45)
[2018-05-22] MEDS: SODIUM CHLOR 0.9% IV.CONT PRN ×4 (00:10→13:32)
[2018-05-22] MEDS: DEXMEDETOMIDINE IV.CONT PRN ×4 (00:10→13:32)
[2018-05-22] MEDS: Vancomycin Inj 1,250 MG in Sodium Chlor 0.9% Inj 250 ML IV.SIG SCH ×2 (00:40→23:35)
[2018-05-22] MEDS: Oral Hygiene Kit OROPHARYNG SCH ×4 (00:41→17:56)
[2018-05-22] MEDS: Morphine Inj 4 MG/ML Vial IV.PUSH PRN ×3 (04:47→17:53)
[2018-05-22 07:40] LABS: Hematocrit 32.4 % (39.0-51.0); Hemoglobin 11.4 gm/dL (13.0-17.0); Mean Corpuscular HGB Conc 35.2 % (32.0-36.0); Mean Corpuscular Hemoglobin 34.1 pg (27.0-34.0); Mean Corpuscular Volume 96.7 fL (80.0-100.0); Mean Platelet Volume 9.7 fL (7.0-11.0); Platelet Count 130 th/mm3 (150-450); Red Blood Count 3.35 mil/mm3 (4.50-5.90); Red Cell Distribution Width 16.8 % (11.6-17.2); White Blood Count 6.9 th/mm3 (4.0-11.0)
[2018-05-22] MEDS: Insulin NovoLIN Regular Correctional Sugar Inj SQ SCH ×6 (08:00→21:43)
[2018-05-22 08:09] LABS: Potassium 3.6 meq/L (3.5-5.1)
[2018-05-22] MEDS: Budesonide-Formoterol 160/4.5 MCG 6 GM Inhaler INH SCH ×2 (08:23→21:47)
[2018-05-22 08:29] LABS: Calcium 7.1 mg/dL (8.5-10.1); Carbon Dioxide 29.8 meq/L (21.0-32.0)
[2018-05-22] MEDS: MethylPREDNISolone Sod Succinate Inj 125 MG/2 ML Vial IV.PUSH SCH ×2 (08:46→21:46)
[2018-05-22] MEDS: Artificial Tears Opth Drops 15 ML Bottle EACH EYE SCH ×3 (08:48→17:57)
[2018-05-22] MEDS: Senna/Docusate Sodium 8.6/50 MG Tablet PO SCH ×2 (08:48→21:44)
[2018-05-22 08:53] LABS: Total Protein 5.8 g/dL (6.4-8.2)
[2018-05-22] MEDS: Chlorhexidine 0.12% Oral Kit 15 ML UDC OROPHARYNG SCH ×2 (13:21→21:43)
[2018-05-22] MEDS: Acetaminophen 325 MG Tablet PO PRN (15:30)
[2018-05-22] MEDS: Pantoprazole Inj 40 MG Vial IV.PUSH SCH (15:30)
[2018-05-22 16:02] LABS: Bilirubin,Urine Negative (Negative); Clarity,Urine Clear (Clear); Color,Urine Yellow (Yellw/Straw); Glucose,Urine (UA) 500 mg/dL (Negative); Leukocyte Esterase,Urine Negative (Negative); Nitrite,Urine Negative (Negative); Urobilinogen,Urine 0.2 mg/dL (Less than 2)
[2018-05-22 16:34] LABS: Bacteria,Urine Occasional /hpf; Squamous Epithelial Cell,Urine 0-5 /hpf (0-5); WBC,Urine 0-5 /hpf (0-5)
--- NOTE | 2018-05-22 16:44 | XR ---
EXAM DATE: 05/22/2018 4:12 PM EDT AGE/SEX: 87 years / Male INDICATIONS: Congestive heart failure. CLINICAL DATA: This is the patient's subsequent encounter. Patient reports that signs and symptoms h ave been present for 4 - 6 days and indicates a pain score of Nonresponsive. MEDICAL/SURGICAL HISTORY: . Aneurysm, abdominal. Right lung nodule. Tonsillectomy. COMPARISON: . FINDINGS: Endotracheal tube in good position. NG enters stomach. Bilateral mostly basilar airspace disease and pleural effusions. No pneumothorax. Left central line in superior vena cava. CONCLUSION: Support apparatus unchanged. Cardiomegaly. Bilateral airspace disease and pleural effusions similar t o May 20. Electronically signed by: Mj Dejesus MD 05/22/2018 4:43 PM EDT
--- NOTE | 2018-05-22 17:03 | P.PNCC ---
Subjective Subjective Remarks/Hospital Course: 05/16: This is a 87-year-old male. Date of admission 05/14/2018. Past medical history includes COPD, did a course of the lung, AAA, glaucoma, osteoarthritis and stable AAA. 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 He has recently received radiation therapy by Dr. allen. He is followed by Dr. Cherry pulmonology. He was in the [facility] on 05/14 with acute onset of shortness of breath. He denies coughing/productive, congestion, fevers or chills. Denies chest pain. CT angiogram revealed no pulmonary embolism. Right upper lobe mass identified. Possible postobstructive pneumonia versus radiation pneumonitis. Patient receives norepinephrine drip to maintain mean atrial pressure and 65. Started on vancomycin, cefepime and azithromycin. 05/17: Remains sedated, orally intubated on mechanical ventilation. On Levophed/ vasopressin for pressor support. 05/18: no changes. remains on vasopressors. remains critically ill, intubated, sedated. Son is at bedside and states he understands how sick his father is but "chooses to remain hopefully optimistic". 05/19: no improvements. remains on vasopressors. mental status not improved. 05/20: fio2 rising. cxr with worsening pulmonary edema. still intermittently on vasopressors. failing cpap. no clinical improvements. 05/21: Remains sedated/encephalopathic, orally intubated on mechanical ventilation. 05/22: Sedated with Precedex, arousable, orally intubated on mechanical ventilation. Tolerated CPAP trial with +10//5 for 2 hours. Objective Vital Signs / I&O: Vital Signs 05/21/18 17:07 05/21/18 17:30 05/21/18 18:00 Temperature Pulse Rate 114 H 110 H Respiratory Rate 34 H 41 H 46 H Blood Pressure 143/75 H 137/78 Pulse Oximetry 99 98 98 05/21/18 18:30 05/21/18 19:00 05/21/18 19:30 Temperature Pulse Rate 108 H 106 H Respiratory Rate 36 H 46 H Blood Pressure 142/73 H 133/67 118/57 L Pulse Oximetry 97 99 05/21/18 19:58 05/21/18 19:59 05/21/18 20:00 Temperature 98.2 F Pulse Rate 99 H 100 H Respiratory Rate 30 H 30 H 31 H Blood Pressure 120/69 Pulse Oximetry 100 100 05/21/18 21:00 05/21/18 22:00 05/21/18 22:30 Temperature Pulse Rate 86 96 H 94 H Respiratory Rate 28 H 27 H 28 H Blood Pressure 119/63 119/67 107/61 Pulse Oximetry 100 100 100 05/21/18 23:00 05/21/18 23:20 05/21/18 23:30 Temperature Pulse Rate 88 88 90 Respiratory Rate 28 H 29 H 28 H Blood Pressure 109/58 L 115/63 Pulse Oximetry 100 100 05/22/18 00:00 05/22/18 00:30 05/22/18 01:00 Temperature 97.5 F L Pulse Rate 90 96 H 96 H Respiratory Rate 27 H 31 H 37 H Blood Pressure 120/62 129/67 126/67 Pulse Oximetry 100 100 100 05/22/18 01:18 05/22/18 01:30 05/22/18 02:00 Temperature Pulse Rate 100 H Respiratory Rate 36 H 47 H Blood Pressure 115/63 128/65 Pulse Oximetry 99 97 05/22/18 03:00 05/22/18 03:40 05/22/18 04:00 Temperature 97.0 F L Pulse Rate 96 H 98 H 90 Respiratory Rate 51 H 30 H 52 H Blood Pressure 132/69 126/62 Pulse Oximetry 99 98 05/22/18 05:00 05/22/18 06:00 05/22/18 07:00 Temperature Pulse Rate 96 H 100 H 96 H Respiratory Rate 39 H 44 H Blood Pressure 128/64 132/70 132/60 Pulse Oximetry 97 97 94 L 05/22/18 07:43 05/22/18 08:00 05/22/18 08:30 Temperature Pulse Rate 100 H 104 H Respiratory Rate 28 H 50 H 39 H Blood Pressure 139/64 135/69 Pulse Oximetry 100 99 98 05/22/18 09:00 05/22/18 09:30 05/22/18 10:00 Temperature Pulse Rate 104 H 108 H 106 H Respiratory Rate 46 H 34 H 34 H Blood Pressure 130/67 136/66 133/70 Pulse Oximetry 95 96 94 L 05/22/18 10:23 05/22/18 10:30 05/22/18 11:00 Temperature Pulse Rate 102 H 100 H Respiratory Rate 28 H 29 H 50 H Blood Pressure 127/64 123/64 Pulse Oximetry 95 93 L 93 L 05/22/18 11:30 05/22/18 11:42 05/22/18 12:00 Temperature Pulse Rate 98 H 104 H Respiratory Rate 28 H 29 H 31 H Blood Pressure 128/67 133/67 Pulse Oximetry 94 L 95 96 05/22/18 12:30 05/22/18 13:00 05/22/18 13:30 Temperature Pulse Rate 104 H 102 H 106 H Respiratory Rate 33 H 32 H 33 H Blood Pressure 140/71 131/66 133/64 Pulse Oximetry 96 96 96 05/22/18 14:00 05/22/18 14:30 05/22/18 14:46 Temperature 100.1 F H Pulse Rate 108 H 106 H 108 H Respiratory Rate 31 H 31 H 33 H Blood Pressure 125/71 133/71 Pulse Oximetry 96 96 97 05/22/18 15:00 05/22/18 15:30 05/22/18 16:00 Temperature 100 F H Pulse Rate 106 H 106 H 104 H Respiratory Rate 33 H 27 H 40 H Blood Pressure 124/61 125/62 124/64 Pulse Oximetry 96 95 96 Intake & Output 05/21/18 05/22/18 05/22/18 18:59 06:59 18:59 Intake Total 1040 / 1040 1068 / 1068 208 / 208 Output Total 1950 / 1950 1999 Balance -910 / -910 -932 / -932 208 / 208 Weight 81.1 kg Intake: IV 100 / 100 308 / 308 208 / 208 Precedex Inj 400 MCG In NS Inj 208 / 208 208 / 208 100 ML @ 0.2 MCG/KG/HR 4.18 mls /hr IV.CONT TITRATE PRN Rx#: [id number] Maxipime Inj 2,000 MG In NS Inj 100 / 100 100 / 100 100 ML @ 200 mls/hr IV.SIG Q12H DECLAN Rx#:[id number] Oral 0 / 0 Tube Feeding 420 / 420 360 / 360 Tube Irrigant 120 / 120 Water Bolus Amount 400 / 400 400 / 400 Output: Urine 1850 / 1850 Urine Amount (Catheter) 1999 Indwelling Urethral Catheter 1999 Gastric Drainage 100 / 100 Oral 100 / 100 Other: Date of Last Bowel Movement 07/06/0105/21/18 05/21/18 # Bowel Movements 1 0 Result Diagrams: 05/22/18 07:20 05/22/18 07:20 Objective Remarks: General: frail critically ill elderly male, lying in bed, sedated and intubated. HEENT: nc. at. perrl. mmm. Neck: No JVD, trachea midline. Chest: on mech vent, equal chest rise. scattered rhonchi bilaterally. fio2 40% . spo2 97%. peep 5. CVS: normal rate, regular rhythm. appears sinus by telemetry. GI/abdomen: soft, nontender, nondistended. no guarding. Extremities: warm bilaterally, 1+ bilateral edema Neuro: RASS -1. sedated, intubated. pupils equal and reactive. withdraws to pain , occasionally follows commands per [employer] W[employer]DER. Assessment and Plan - Problem List (1) Hyperlipidemia Code(s): E78.5 - Hyperlipidemia, unspecified Status: Chronic (2) Essential hypertension Code(s): I10 - Essential (primary) hypertension Status: Acute (3) AAA (abdominal aortic aneurysm) without rupture Code(s): I71.4 - Abdominal aortic aneurysm, without rupture Status: Chronic (4) Adenocarcinoma of lung Code(s): C34.90 - Malignant neoplasm of unspecified part of unspecified bronchus or lung Status: Chronic (5) Acute and chronic respiratory failure with hypoxia Code(s): J96.21 - Acute and chronic respiratory failure with hypoxia Status: Acute (6) Tobacco use Code(s): Z72.0 - Tobacco use Status: Chronic (7) COPD (chronic obstructive pulmonary disease) Code(s): J44.9 - Chronic obstructive pulmonary disease, unspecified Status: Chronic - Assessment and Plan Plan: Assessment: 87yM with lung adenocarcinoma presents with acute hypoxic and hypercarbic respiratory failure, post-obstructive pneumonia, and associated septic shock. Clinically not improving: remains critically ill with little if any progress or improvements in last few days. Son continues to press on with aggressive measures at this time. Continue vasopressors and antibiotics for his shock. remains critical despite maximal therapy. now will be forced to diurese given volume overload despite shock. very critically ill. Neuro/Psych: Acute metabolic encephalopathy Sedation while intubated. versed, fentanyl. daily sedation vacations goal RASS -2 off propofol due to hypotension. Acetaminophen 650 mg by mouth every 6 hours for Fever Hydrocodone/acetaminophen 5/325 one tab every 4 hours as needed pain 1 through 5 Morphine sulfate 2 mg IV every 2 hours as needed pain 6 -10 CV: Septic Shock, persistent. Hyperlipidemia Coronary artery disease Holding home medications of ramipril 5 mg daily and lovastatin 10 mg daily. Limited 2D echocardiogram revealed ejection fraction 55%. continue Levophed for goal map > 60 - renal function is improving and peripheral perfusion is compromised with rising vasopressors: must drop map goal from 65 to 60 to mitigate vasoconstriction. Resp: Acute hypoxic and hypercarbic respiratory failure, persistent Pulmonary Edema Lung CA Intubated and placed on mechanical ventilation on 05/16 Albuterol/ipratropium aerosols every 4 hours with albuterol aerosols every 2 hours as needed dyspnea budesonide/formoterol 160/4.5 2 puffs twice daily Consultation pulmonology/Dr. Cherry CT pulmonary angiogram revealed no evidence of pulmonary embolism. Right perihilar/peribronchial mass consistent with patient's known lung carcinoma is noted. Patchy infiltrates are noted within the lower lobes bilaterally consistent with probable pneumonia. Central bronchiectasis is noted bilaterally. Cardiomegaly and coronary artery calcifications. Cholelithiasis. Degenerative changes and kyphosis of the thoracic spine are noted. daily SBTs. wean fio2 for goal spo2 > 88% lasix 40mg iv x 1 with concentrated albumin d/c mivf. GI: Cholelithiasis Acute protein calorie malnutrition- severe Tube feeds of Jevity 1.5 starting at 20 cc an hour. If pressor requirement decreases will consider advancing to goal, but pressor requirement remains today. Pantoprazole for GI prophylaxis Docusate sodium/senna 1 tablet twice daily for bowel regimen : No indication for Montes De Oca catheter Endo: Hyperglycemia SSI to maintain euglycemia Renal: Creatinine currently within normal limits daily BMP Heme: History of adenocarcinoma the lung status post radiation therapy by Dr. Allen Macrocytic anemia Elevated PTT PET scan 03/2018 revealed 3 cm right upper lobe mass. Cytology revealed poorly differentiated adenocarcinoma. Monitor CBC daily. Follow trends ID: Likely community acquired pneumonia Day 97 vancomycin, cefepime and azithromycin Blood cultures 2: Results NGTD Negative urine Legionella pneumococcal antigens Influenza a and B and sputum ordered MSK: Kyphosis of thoracic spine Osteoarthritis PT evaluate and treat FEN: Hyponatremia Replace electrolytes as clinically indicated Access -Central line placed 05/16 Prophylaxis- GI -pantoprazole -DVT -SCD/enoxaparin remains full code. palliative following. Discussed with patient's family at bedside. critical care time: 30 minutes, exclusive of separately billable procedures. (7) COPD (chronic obstructive pulmonary disease) Qualifiers: COPD type: unspecified COPD Qualified Code(s): J44.9 - Chronic obstructive pulmonary disease, unspecified
[2018-05-22] MEDS: Azithromycin Inj 500 MG in Sodium Chlor 0.9% Inj 250 ML IV.SIG SCH (21:44)
[2018-05-22] MEDS: Dextrose 5% in Water Inj 1,000 ML IV.CONT SCH (23:35)
[2018-05-23] MEDS: DEXMEDETOMIDINE IV.CONT PRN ×2 (00:37→09:57)
[2018-05-23] MEDS: Oral Hygiene Kit OROPHARYNG SCH (00:37)
[2018-05-23] MEDS: SODIUM CHLOR 0.9% IV.CONT PRN ×2 (00:37→09:57)
[2018-05-23] MEDS: Morphine Inj 4 MG/ML Vial IV.PUSH PRN (01:35)
[2018-05-23 05:06] LABS: Hematocrit 34.9 % (39.0-51.0); Mean Corpuscular HGB Conc 34.4 % (32.0-36.0); Mean Corpuscular Hemoglobin 33.9 pg (27.0-34.0); Mean Corpuscular Volume 98.4 fL (80.0-100.0); Mean Platelet Volume 10.4 fL (7.0-11.0); Platelet Count 151 th/mm3 (150-450); Red Blood Count 3.55 mil/mm3 (4.50-5.90); Red Cell Distribution Width 17.1 % (11.6-17.2); White Blood Count 10.7 th/mm3 (4.0-11.0)
[2018-05-23 05:14] LABS: Potassium 4.1 meq/L (3.5-5.1)
[2018-05-23 05:35] LABS: Calcium 6.8 mg/dL (8.5-10.1); Carbon Dioxide 30.3 meq/L (21.0-32.0)
[2018-05-23 05:47] LABS: Total Protein 5.9 g/dL (6.4-8.2)
[2018-05-23] MEDS: Insulin NovoLIN Regular Correctional Sugar Inj SQ SCH ×4 (08:33→22:40)
[2018-05-23] MEDS: Chlorhexidine 0.12% Oral Kit 15 ML UDC OROPHARYNG SCH ×2 (08:42→21:47)
[2018-05-23] MEDS: Senna/Docusate Sodium 8.6/50 MG Tablet PO SCH ×2 (08:42→21:46)
[2018-05-23] MEDS: Artificial Tears Opth Drops 15 ML Bottle EACH EYE SCH ×3 (08:43→18:16)
[2018-05-23] MEDS: Budesonide-Formoterol 160/4.5 MCG 6 GM Inhaler INH SCH ×2 (08:43→19:19)
[2018-05-23] MEDS: MethylPREDNISolone Sod Succinate Inj 40 MG/ML Vial IV.PUSH SCH ×2 (09:59→21:45)
--- NOTE | 2018-05-23 11:22 | P.PNCC ---
Subjective Subjective Remarks/Hospital Course: 05/16: This is a 87-year-old male. Date of admission 05/14/2018. Past medical history includes COPD, did a course of the lung, AAA, glaucoma, osteoarthritis and stable AAA. 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 He has recently received radiation therapy by Dr. allen. He is followed by Dr. Cherry pulmonology. He was in the [facility] on 05/14 with acute onset of shortness of breath. He denies coughing/productive, congestion, fevers or chills. Denies chest pain. CT angiogram revealed no pulmonary embolism. Right upper lobe mass identified. Possible postobstructive pneumonia versus radiation pneumonitis. Patient receives norepinephrine drip to maintain mean atrial pressure and 65. Started on vancomycin, cefepime and azithromycin. 05/17: Remains sedated, orally intubated on mechanical ventilation. On Levophed/ vasopressin for pressor support. 05/18: no changes. remains on vasopressors. remains critically ill, intubated, sedated. Son is at bedside and states he understands how sick his father is but "chooses to remain hopefully optimistic". 05/19: no improvements. remains on vasopressors. mental status not improved. 05/20: fio2 rising. cxr with worsening pulmonary edema. still intermittently on vasopressors. failing cpap. no clinical improvements. 05/21: Remains sedated/encephalopathic, orally intubated on mechanical ventilation. 05/22: Sedated with Precedex, arousable, orally intubated on mechanical ventilation. Tolerated CPAP trial with +10//5 for 2 hours. 05/23: Sedated with Precedex, orally intubated on mechanical ventilation. Tolerating tube feeds. Objective Vital Signs / I&O: Vital Signs 05/22/18 11:30 05/22/18 11:42 05/22/18 12:00 Temperature Pulse Rate 98 H 104 H Respiratory Rate 28 H 29 H 31 H Blood Pressure 128/67 133/67 Pulse Oximetry 94 L 95 96 05/22/18 12:30 05/22/18 13:00 05/22/18 13:30 Temperature Pulse Rate 104 H 102 H 106 H Respiratory Rate 33 H 32 H 33 H Blood Pressure 140/71 131/66 133/64 Pulse Oximetry 96 96 96 05/22/18 14:00 05/22/18 14:30 05/22/18 14:46 Temperature 100.1 F H Pulse Rate 108 H 106 H 108 H Respiratory Rate 31 H 31 H 33 H Blood Pressure 125/71 133/71 Pulse Oximetry 96 96 97 05/22/18 15:00 05/22/18 15:30 05/22/18 16:00 Temperature 100 F H Pulse Rate 106 H 106 H 104 H Respiratory Rate 33 H 27 H 40 H Blood Pressure 124/61 125/62 124/64 Pulse Oximetry 96 95 96 05/22/18 16:30 05/22/18 17:00 05/22/18 17:01 Temperature Pulse Rate 104 H 104 H Respiratory Rate 31 H 29 H 32 H Blood Pressure 127/64 123/63 Pulse Oximetry 96 96 96 05/22/18 17:30 05/22/18 18:00 05/22/18 19:00 Temperature 100.1 F H 100 F H Pulse Rate 102 H 104 H 126 H Respiratory Rate 28 H 30 H 45 H Blood Pressure 123/65 120/64 128/72 Pulse Oximetry 96 96 97 05/22/18 19:35 05/22/18 20:00 05/22/18 21:00 Temperature Pulse Rate 108 H 104 H 118 H Respiratory Rate 20 25 H 30 H Blood Pressure 118/59 L 126/69 Pulse Oximetry 98 98 05/22/18 22:00 05/22/18 22:09 05/22/18 23:00 Temperature Pulse Rate 112 H 104 H Respiratory Rate 27 H 30 H 25 H Blood Pressure Pulse Oximetry 99 98 100 05/23/18 00:00 05/23/18 00:03 05/23/18 01:05 Temperature Pulse Rate 112 H 106 H 110 H Respiratory Rate 28 H 29 H 29 H Blood Pressure 130/70 128/72 Pulse Oximetry 100 100 05/23/18 01:32 05/23/18 02:00 05/23/18 03:00 Temperature Pulse Rate 110 H 118 H Respiratory Rate 32 H 29 H 30 H Blood Pressure 138/77 131/72 Pulse Oximetry 97 98 98 05/23/18 03:22 05/23/18 04:00 05/23/18 04:06 Temperature Pulse Rate 118 H 122 H Respiratory Rate 32 H 31 H 13 Blood Pressure 129/75 Pulse Oximetry 99 05/23/18 05:00 05/23/18 06:00 05/23/18 07:00 Temperature 99.7 F H Pulse Rate 116 H 116 H 112 H Respiratory Rate 30 H 32 H 32 H Blood Pressure 132/53 L 140/56 L Pulse Oximetry 98 98 97 05/23/18 07:05 05/23/18 08:37 Temperature Pulse Rate 114 H Respiratory Rate 32 H 32 H Blood Pressure 134/54 L Pulse Oximetry 98 96 Intake & Output 05/22/18 05/23/18 05/23/18 18:59 06:59 18:59 Intake Total 1308 / 1308 1661 / 1661 104 / 104 Output Total 850 / 850 950 / 950 Balance 458 / 458 711 / 711 104 / 104 Weight 81.8 kg Intake: IV 1308 / 1308 204 / 204 104 / 104 Precedex Inj 400 MCG In NS Inj 208 / 208 104 / 104 104 / 104 100 ML @ 0.2 MCG/KG/HR 4.18 mls /hr IV.CONT TITRATE PRN Rx#: [id number] Inj 1,000 ML @ 42 mls/hr IV 1000 / 1000 .CONT .[id number] DECLAN Rx#: [id number] Maxipime Inj 2,000 MG In NS Inj 100 / 100 100 / 100 100 ML @ 200 mls/hr IV.SIG Q12H DECLAN Rx#:[id number] Tube Feeding 1137 / 1137 Water Bolus Amount 320 / 320 Output: Urine Amount (Catheter) 850 / 850 950 / 950 Indwelling Urethral Catheter 850 / 850 950 / 950 Other: Date of Last Bowel Movement 05/21/18 05/21/18 05/21/18 Result Diagrams: 05/23/18 05:00 05/23/18 05:00 Objective Remarks: General: frail critically ill elderly male, lying in bed, sedated and intubated. HEENT: nc. at. perrl. mmm. Neck: No JVD, trachea midline. Chest: on mech vent, equal chest rise. scattered rhonchi bilaterally. fio2 40% . peep 5. CVS: normal rate, regular rhythm. appears sinus by telemetry. GI/abdomen: soft, nontender, nondistended. no guarding. Extremities: warm bilaterally, 1+ bilateral edema Neuro: RASS -1. sedated, intubated. pupils equal and reactive. withdraws to pain , occasionally follows commands per CUTTING MACHINE TENDER HELPER. Assessment and Plan - Problem List (1) Hyperlipidemia Code(s): E78.5 - Hyperlipidemia, unspecified Status: Chronic (2) Essential hypertension Code(s): I10 - Essential (primary) hypertension Status: Acute (3) AAA (abdominal aortic aneurysm) without rupture Code(s): I71.4 - Abdominal aortic aneurysm, without rupture Status: Chronic (4) Adenocarcinoma of lung Code(s): C34.90 - Malignant neoplasm of unspecified part of unspecified bronchus or lung Status: Chronic (5) Acute and chronic respiratory failure with hypoxia Code(s): J96.21 - Acute and chronic respiratory failure with hypoxia Status: Acute (6) Tobacco use Code(s): Z72.0 - Tobacco use Status: Chronic (7) COPD (chronic obstructive pulmonary disease) Code(s): J44.9 - Chronic obstructive pulmonary disease, unspecified Status: Chronic - Assessment and Plan Plan: Assessment: 87yM with lung adenocarcinoma presents with acute hypoxic and hypercarbic respiratory failure, post-obstructive pneumonia, and associated septic shock. Clinically not improving: remains critically ill with little if any progress or improvements in last few days. Son continues to press on with aggressive measures at this time. Continue vasopressors and antibiotics for his shock. remains critical despite maximal therapy. now will be forced to diurese given volume overload despite shock. very critically ill. Neuro/Psych: Acute metabolic encephalopathy Sedation while intubated. versed, fentanyl. daily sedation vacations goal RASS -2 off propofol due to hypotension. Acetaminophen 650 mg by mouth every 6 hours for Fever Hydrocodone/acetaminophen 5/325 one tab every 4 hours as needed pain 1 through 5 Morphine sulfate 2 mg IV every 2 hours as needed pain 6 -10 CV: Septic Shock, persistent. Hyperlipidemia Coronary artery disease Holding home medications of ramipril 5 mg daily and lovastatin 10 mg daily. Limited 2D echocardiogram revealed ejection fraction 55%. continue Levophed for goal map > 60 - renal function is improving and peripheral perfusion is compromised with rising vasopressors: must drop map goal from 65 to 60 to mitigate vasoconstriction. Resp: Acute hypoxic and hypercarbic respiratory failure, persistent Pulmonary Edema Lung CA Intubated and placed on mechanical ventilation on 05/16 Albuterol/ipratropium aerosols every 4 hours with albuterol aerosols every 2 hours as needed dyspnea budesonide/formoterol 160/4.5 2 puffs twice daily Consultation pulmonology/Dr. Cherry CT pulmonary angiogram revealed no evidence of pulmonary embolism. Right perihilar/peribronchial mass consistent with patient's known lung carcinoma is noted. Patchy infiltrates are noted within the lower lobes bilaterally consistent with probable pneumonia. Central bronchiectasis is noted bilaterally. Cardiomegaly and coronary artery calcifications. Cholelithiasis. Degenerative changes and kyphosis of the thoracic spine are noted. daily SBTs. wean fio2 for goal spo2 > 88% lasix 40mg iv x 1 with concentrated albumin d/c mivf. GI: Cholelithiasis Acute protein calorie malnutrition- severe Tube feeds of Jevity 1.5 starting at 20 cc an hour. If pressor requirement decreases will consider advancing to goal, but pressor requirement remains today. Pantoprazole for GI prophylaxis Docusate sodium/senna 1 tablet twice daily for bowel regimen : No indication for Montes De Oca catheter Endo: Hyperglycemia SSI to maintain euglycemia Renal: Creatinine currently within normal limits daily BMP Heme: History of adenocarcinoma the lung status post radiation therapy by Dr. Allen Macrocytic anemia Elevated PTT PET scan 03/2018 revealed 3 cm right upper lobe mass. Cytology revealed poorly differentiated adenocarcinoma. Monitor CBC daily. Follow trends ID: Likely community acquired pneumonia Day 97 vancomycin, cefepime and azithromycin Blood cultures 2: Results NGTD Negative urine Legionella pneumococcal antigens Influenza a and B and sputum ordered MSK: Kyphosis of thoracic spine Osteoarthritis PT evaluate and treat FEN: Hyponatremia Replace electrolytes as clinically indicated Access -Central line placed 05/16 Prophylaxis- GI -pantoprazole -DVT -SCD/enoxaparin remains full code. palliative following. Discussed with patient's family at bedside. critical care time: 30 minutes, exclusive of separately billable procedures. (7) COPD (chronic obstructive pulmonary disease) Qualifiers: COPD type: unspecified COPD Qualified Code(s): J44.9 - Chronic obstructive pulmonary disease, unspecified
--- NOTE | 2018-05-23 12:01 | P.PNPAL ---
Palliative care continues to follow along with Mr. Ray for ongoing communication and emotional support for patient and family. Spoke with patient' s son Jaziel via telephone. He has a good understanding of weekend events. He remains hopeful that Mr. Ray will continue to make incremental improvements with his CPAP trials and ongoing overall medical condition. Desires continued aggressive care to give Mr. Ray a few days to see how he does. He verbalizes understanding of decisions that may be coming regarding his father's medical condition and medical care. Son states his kids were in over the weekend and got a chance to speak with Dr. Corey (critical care) and Dr. Cherry (pulmonology) and had all their questions answered. Declines speaking with palliative care MD/CHEF CONCIERGE at this time. Confirmed son has palliative care contact information. He desires continued follow-up from palliative care but declines visit by medical provider today. He is very appreciative of all medical staff and updates provided. Palliative care will continue to follow along throughout hospitalization.
[2018-05-23] MEDS: Acetaminophen 325 MG Tablet PO PRN (12:31)
--- NOTE | 2018-05-23 16:17 | P.DIET ---
Nutritional Evaluation Type of nutrition evaluation: follow-up Nutrition consult regarding: Tube Feeding Nutrition screening: [facility] Screening comments: [facility] for TF'ing Objective - Diagnosis Shortness of Breath - Objective % IBW: 94 Body Weight Used for Calculations: Actual Energy Needs - Lower Range (kCal/kg): 25 Energy Needs - Upper Range (kCal/kg): 30 Lower Limit kCal/kg (kCals): 1,768 Upper Limit kCal/kg (kCals): 2,121 Lower Limit Protein Factor (Grams per Kg): 1.1 Upper Limit Protein Factor (Grams per Kg): 1.4 Lower Protein Needs (Protein): 78 Upper Protein Needs (Protein): 99 Dietitian Reviewed in Medical Record: Curent medications, Intake & Output, Labs , Tube feeding Diet Order: TF'ing ONLY Objective Comments: PMH: AAA, Adenocarcinoma lung, diagnosed March 2018 w/recent radiation therapy; HTN, Glaucoma, Osteoporosis Labs Include: Glucose 317, Accucheck 343, 363 Meds Include: Novolin R, Zofran, Protonix, Free Water flushe 200ml via g-tube Q 6-hr LBM 05/21, -UOP 950ml Feeding - Current Tube Feeding Tube Feeding Rate: 55 Current kCals Provided by Tube Feedin,980 Current Protein Provided by Tube Feeding (gPRO): 84 Current Free H2O Provided (m/l): 1,003 Assessment Assessment: Pt is continues at nutritional risk r/t need for TF'ing. Pt is tolerating TF' ing w/ Jevity 1.5 @ goal rate 55ml/hr. Critical Care note today w/"SSI to maintain euglycemia". Should a CHO-controlled formula be needed, then Rec TF'ing w/Glucerna 1.5 @ goal rate 50ml/hr will offer 1800 kcal, 99g Protein and 911ml free water. Wt changes noted. Dietitian following. Recommendations: 1.TF'ing Jevity 1.5 @ goal rate 55ml/hr 2.Should a CHO-controlled TF'ing formula be needed, then Rec Glucerna 1.5 @ goal rate 50ml/hr 3.Dietitian following Dietitian to Monitor: Lab values, Electrolytes, Glucose level, Intake & Output, Tube feeding tolerance, Weight change, Medical course
[2018-05-23] MEDS: Pantoprazole Inj 40 MG Vial IV.PUSH SCH (18:05)
[2018-05-23] MEDS: Azithromycin Inj 500 MG in Sodium Chlor 0.9% Inj 250 ML IV.SIG SCH (21:46)
[2018-05-24] MEDS: Oral Hygiene Kit OROPHARYNG SCH ×3 (00:01→17:12)
[2018-05-24] MEDS: Vancomycin Inj 1,250 MG in Sodium Chlor 0.9% Inj 250 ML IV.SIG SCH (00:56)
[2018-05-24] MEDS: Dextrose 5% in Water Inj 1,000 ML IV.CONT SCH (01:41)
[2018-05-24 06:18] LABS: Hematocrit 35.8 % (39.0-51.0); Hemoglobin 11.6 gm/dL (13.0-17.0); Mean Corpuscular HGB Conc 32.5 % (32.0-36.0); Mean Corpuscular Hemoglobin 32.8 pg (27.0-34.0); Mean Platelet Volume 9.3 fL (7.0-11.0); Platelet Count 129 th/mm3 (150-450); Red Blood Count 3.54 mil/mm3 (4.50-5.90); Red Cell Distribution Width 16.1 % (11.6-17.2); White Blood Count 11.4 th/mm3 (4.0-11.0)
[2018-05-24 06:33] LABS: Potassium 4.3 meq/L (3.5-5.1)
[2018-05-24 06:42] LABS: Calcium 6.8 mg/dL (8.5-10.1); Carbon Dioxide 30.7 meq/L (21.0-32.0)
[2018-05-24 06:53] LABS: Total Protein 5.4 g/dL (6.4-8.2)
[2018-05-24] MEDS: Budesonide-Formoterol 160/4.5 MCG 6 GM Inhaler INH SCH ×2 (07:47→21:00)
--- NOTE | 2018-05-24 07:54 | P.PNCC ---
Subjective Subjective Remarks/Hospital Course: 05/16: This is a 87-year-old male. Date of admission 05/14/2018. Past medical history includes COPD, did a course of the lung, AAA, glaucoma, osteoarthritis and stable AAA. 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 He has recently received radiation therapy by Dr. allen. He is followed by Dr. Cherry pulmonology. He was in the [facility] on 05/14 with acute onset of shortness of breath. He denies coughing/productive, congestion, fevers or chills. Denies chest pain. CT angiogram revealed no pulmonary embolism. Right upper lobe mass identified. Possible postobstructive pneumonia versus radiation pneumonitis. Patient receives norepinephrine drip to maintain mean atrial pressure and 65. Started on vancomycin, cefepime and azithromycin. 05/17: Remains sedated, orally intubated on mechanical ventilation. On Levophed/ vasopressin for pressor support. 05/18: no changes. remains on vasopressors. remains critically ill, intubated, sedated. Son is at bedside and states he understands how sick his father is but "chooses to remain hopefully optimistic". 05/19: no improvements. remains on vasopressors. mental status not improved. 05/20: fio2 rising. cxr with worsening pulmonary edema. still intermittently on vasopressors. failing cpap. no clinical improvements. 05/21: Remains sedated/encephalopathic, orally intubated on mechanical ventilation. 05/22: Sedated with Precedex, arousable, orally intubated on mechanical ventilation. Tolerated CPAP trial with +10//5 for 2 hours. 05/23: Sedated with Precedex, orally intubated on mechanical ventilation. Tolerating tube feeds. 05/24: Much more awake. Orally intubated on mechanical ventilation. Tolerated CPAP trial yesterday. Tolerating tube feeds. Objective Vital Signs / I&O: Vital Signs 05/23/18 08:00 05/23/18 08:05 05/23/18 08:37 Temperature Pulse Rate 114 H 116 H Respiratory Rate 31 H 31 H 32 H Blood Pressure 134/61 Pulse Oximetry 97 97 96 05/23/18 09:00 05/23/18 09:05 05/23/18 10:00 Temperature Pulse Rate 118 H 118 H 120 H Respiratory Rate 34 H 33 H 35 H Blood Pressure 137/72 Pulse Oximetry 97 98 98 05/23/18 10:05 05/23/18 11:00 05/23/18 11:05 Temperature Pulse Rate 124 H 124 H 124 H Respiratory Rate 34 H 36 H 36 H Blood Pressure 145/58 H 140/84 Pulse Oximetry 98 100 100 05/23/18 11:15 05/23/18 11:33 05/23/18 12:00 Temperature 102.9 F H Pulse Rate 112 H 118 H 102 H Respiratory Rate 33 H 34 H 29 H Blood Pressure 124/47 L Pulse Oximetry 99 96 05/23/18 12:05 05/23/18 13:00 05/23/18 13:05 Temperature Pulse Rate 114 H 110 H 116 H Respiratory Rate 33 H 29 H 32 H Blood Pressure 108/71 132/70 Pulse Oximetry 97 98 100 05/23/18 13:30 05/23/18 14:00 05/23/18 14:05 Temperature 100.3 F H 98.2 F Pulse Rate 110 H 116 H Respiratory Rate 30 H 30 H Blood Pressure 131/68 140/27 L Pulse Oximetry 100 100 05/23/18 14:41 05/23/18 15:00 05/23/18 15:05 Temperature Pulse Rate 106 H 114 H 108 H Respiratory Rate 29 H 31 H 30 H Blood Pressure 131/68 134/68 Pulse Oximetry 100 99 100 05/23/18 15:49 05/23/18 15:52 05/23/18 16:00 Temperature Pulse Rate 108 H 110 H Respiratory Rate 31 H 32 H 31 H Blood Pressure Pulse Oximetry 100 99 05/23/18 16:05 05/23/18 17:00 05/23/18 17:05 Temperature Pulse Rate 112 H 104 H 104 H Respiratory Rate 32 H 27 H 28 H Blood Pressure 126/45 L 127/65 Pulse Oximetry 96 95 99 05/23/18 18:00 05/23/18 18:05 05/23/18 19:00 Temperature Pulse Rate 104 H 102 H Respiratory Rate 22 26 H Blood Pressure 117/64 Pulse Oximetry 98 100 98 05/23/18 19:05 05/23/18 19:20 05/23/18 19:21 Temperature Pulse Rate 88 103 H Respiratory Rate 23 27 H 25 H Blood Pressure 102/49 L Pulse Oximetry 100 100 05/23/18 20:00 05/23/18 20:05 05/23/18 21:00 Temperature 98.2 F Pulse Rate 104 H 100 H 100 H Respiratory Rate 25 H 25 H 24 Blood Pressure 106/52 L 125/68 Pulse Oximetry 100 100 98 05/23/18 21:05 05/23/18 22:03 05/23/18 22:05 Temperature Pulse Rate 112 H 82 Respiratory Rate 27 H 24 20 Blood Pressure 135/68 106/57 L Pulse Oximetry 99 100 96 05/23/18 23:00 05/23/18 23:25 05/24/18 00:05 Temperature 97.9 F Pulse Rate 100 H 99 H 94 H Respiratory Rate 28 H 23 23 Blood Pressure 106/57 L 102/61 Pulse Oximetry 100 99 05/24/18 01:05 05/24/18 01:48 05/24/18 02:05 Temperature Pulse Rate 96 H 96 H Respiratory Rate 18 27 H 27 H Blood Pressure 107/63 114/66 Pulse Oximetry 100 95 97 05/24/18 03:05 05/24/18 04:00 05/24/18 04:05 Temperature 97.9 F Pulse Rate 102 H 108 H Respiratory Rate 32 H 32 H 29 H Blood Pressure 113/61 115/60 Pulse Oximetry 96 98 94 L 05/24/18 04:08 05/24/18 05:05 05/24/18 06:00 Temperature Pulse Rate 108 H 86 98 H Respiratory Rate 28 H 25 H 23 Blood Pressure 90/52 L 112/63 Pulse Oximetry 94 L 97 05/24/18 06:05 Temperature Pulse Rate 100 H Respiratory Rate 29 H Blood Pressure 116/61 Pulse Oximetry 98 Intake & Output 05/23/18 05/24/18 05/24/18 18:59 06:59 18:59 Intake Total 204 / 204 999 / 999 Output Total 430 / 430 850 / 850 Balance -226 / -226 149 / 149 Weight 81.8 kg 80.3 kg Intake: IV 204 / 204 999 / 999 Precedex Inj 400 MCG In NS Inj 104 / 104 100 ML @ 0.2 MCG/KG/HR 4.18 mls /hr IV.CONT TITRATE PRN Rx#: [id number] Inj 1,000 ML @ 42 mls/hr IV 999 / 999 .CONT .[id number] DECLAN Rx#: [id number] Maxipime Inj 2,000 MG In NS Inj 100 / 100 100 ML @ 200 mls/hr IV.SIG Q12H DECLAN Rx#:[id number] Output: Urine Amount (Catheter) 430 / 430 850 / 850 Indwelling Urethral Catheter 430 / 430 850 / 850 Other: Date of Last Bowel Movement 05/21/18 05/23/18 Result Diagrams: 05/24/18 06:10 05/24/18 06:10 Objective Remarks: General: frail critically ill elderly male, lying in bed, orally intubated. HEENT: nc. at. perrl. mmm. Neck: No JVD, trachea midline. Chest: on mech vent, equal chest rise. scattered rhonchi bilaterally. fio2 40% . peep 5. CVS: normal rate, regular rhythm. appears sinus by telemetry. GI/abdomen: soft, nontender, nondistended. no guarding. Extremities: warm bilaterally, 1+ bilateral edema Neuro: RASS 0, intubated. pupils equal and reactive. withdraws to pain, follows commands, moves all 4 extremities Assessment and Plan - Problem List (1) Hyperlipidemia Code(s): E78.5 - Hyperlipidemia, unspecified Status: Chronic (2) Essential hypertension Code(s): I10 - Essential (primary) hypertension Status: Acute (3) AAA (abdominal aortic aneurysm) without rupture Code(s): I71.4 - Abdominal aortic aneurysm, without rupture Status: Chronic (4) Adenocarcinoma of lung Code(s): C34.90 - Malignant neoplasm of unspecified part of unspecified bronchus or lung Status: Chronic (5) Acute and chronic respiratory failure with hypoxia Code(s): J96.21 - Acute and chronic respiratory failure with hypoxia Status: Acute (6) Tobacco use Code(s): Z72.0 - Tobacco use Status: Chronic (7) COPD (chronic obstructive pulmonary disease) Code(s): J44.9 - Chronic obstructive pulmonary disease, unspecified Status: Chronic - Assessment and Plan Plan: Assessment: 87yM with lung adenocarcinoma presents with acute hypoxic and hypercarbic respiratory failure, post-obstructive pneumonia, and associated septic shock. Clinically not improving: remains critically ill with little if any progress or improvements in last few days. Son continues to press on with aggressive measures at this time. Continue vasopressors and antibiotics for his shock. remains critical despite maximal therapy. now will be forced to diurese given volume overload despite shock. very critically ill. Neuro/Psych: Acute metabolic encephalopathy Sedation while intubated. versed, fentanyl. daily sedation vacations goal RASS -2 off propofol due to hypotension. Acetaminophen 650 mg by mouth every 6 hours for Fever Hydrocodone/acetaminophen 5/325 one tab every 4 hours as needed pain 1 through 5 Morphine sulfate 2 mg IV every 2 hours as needed pain 6 -10 CV: Septic Shock, persistent. Hyperlipidemia Coronary artery disease Holding home medications of ramipril 5 mg daily and lovastatin 10 mg daily. Limited 2D echocardiogram revealed ejection fraction 55%. continue Levophed for goal map > 60 - renal function is improving and peripheral perfusion is compromised with rising vasopressors: must drop map goal from 65 to 60 to mitigate vasoconstriction. Resp: Acute hypoxic and hypercarbic respiratory failure, persistent Pulmonary Edema Lung CA Intubated and placed on mechanical ventilation on 05/16 Albuterol/ipratropium aerosols every 4 hours with albuterol aerosols every 2 hours as needed dyspnea budesonide/formoterol 160/4.5 2 puffs twice daily Consultation pulmonology/Dr. Cherry CT pulmonary angiogram revealed no evidence of pulmonary embolism. Right perihilar/peribronchial mass consistent with patient's known lung carcinoma is noted. Patchy infiltrates are noted within the lower lobes bilaterally consistent with probable pneumonia. Central bronchiectasis is noted bilaterally. Cardiomegaly and coronary artery calcifications. Cholelithiasis. Degenerative changes and kyphosis of the thoracic spine are noted. daily SBTs. wean fio2 for goal spo2 > 88% lasix 40mg iv x 1 with concentrated albumin Tolerating CPAP trials. Will discuss with pulmonary regarding possible extubation. GI: Cholelithiasis Acute protein calorie malnutrition- severe Tube feeds of Jevity 1.5 starting at 20 cc an hour. If pressor requirement decreases will consider advancing to goal, but pressor requirement remains today. Pantoprazole for GI prophylaxis Docusate sodium/senna 1 tablet twice daily for bowel regimen : No indication for Montes De Oca catheter Endo: Hyperglycemia SSI to maintain euglycemia Renal: Creatinine currently within normal limits daily BMP Heme: History of adenocarcinoma the lung status post radiation therapy by Dr. Allen Macrocytic anemia Elevated PTT PET scan 03/2018 revealed 3 cm right upper lobe mass. Cytology revealed poorly differentiated adenocarcinoma. Monitor CBC daily. Follow trends ID: Likely community acquired pneumonia Day 97 vancomycin, cefepime and azithromycin Blood cultures 2: Results NGTD Negative urine Legionella pneumococcal antigens Influenza a and B and sputum ordered MSK: Kyphosis of thoracic spine Osteoarthritis PT evaluate and treat FEN: Hyponatremia Replace electrolytes as clinically indicated Access -Central line placed 05/16 Prophylaxis- GI -pantoprazole -DVT -SCD/enoxaparin remains full code. palliative following. Discussed with patient's son at bedside. (7) COPD (chronic obstructive pulmonary disease) Qualifiers: COPD type: unspecified COPD Qualified Code(s): J44.9 - Chronic obstructive pulmonary disease, unspecified
[2018-05-24] MEDS: MethylPREDNISolone Sod Succinate Inj 40 MG/ML Vial IV.PUSH SCH ×2 (10:16→20:59)
[2018-05-24] MEDS: Insulin NovoLIN Regular Correctional Sugar Inj SQ SCH ×2 (14:29→14:33)
[2018-05-24] MEDS: Morphine Inj 4 MG/ML Vial IV.PUSH PRN (14:39)
[2018-05-24] MEDS ORDERED: Digoxin Inj 500 MCG/2 ML Ampul IV.PUSH ONE (17:00)
[2018-05-24] MEDS ORDERED: Metoprolol Inj 5 MG/5 ML Vial IV.PUSH PRN (17:00)
[2018-05-24] MEDS ORDERED: Amiodarone Inj 150 MG in Dextrose 5% in Water Inj 97 ML IV.SIG ONE ×2 (17:00)
--- NOTE | 2018-05-24 17:07 | P.PNPAL ---
Reason for Visit Reason for visit: a. To assist with evaluation and management of symptoms including: Dyspnea, pain, anxiety b. To assist medical decision maker(s) with: better understanding of current medical conditions; weighing benefits/burdens of medical treatment options; making medical treatment decisions. Subjective Subjective/Interval History: Dual visit with ARTHUR Chapa. Pt in bed, appears somewhat distressed, tachypneic , on bipap, sat 96%. HR in the 130's. Pt is alert, when asked if he was feeling SOB he nodded 'yes', when asked if he'd want to be intubated and put on a ventilator again, he shook his head 'no.' When asked if he would like medications for comfort and breathing, he nodded his head 'yes.' He appears anxious. D/t to clinical status and bipap, unable to answer further questions. Family/Friend Interactions: Spoke with pt's son and proxy Jaziel on phone and in person. Provided medical update and apprised him of pt's indication that he would not want to be reintubated and would prefer medications for dyspnea and comfort. Advance Directives Living Will: Never completed Health Care Surrogate: Never completed Durable Power of Open Hearth Helper: Never completed Health Care Surrogate Name and Number: HCP: Jaziel Ray (son) [phone] Significant change in goals:: Pt indicating he would not want to be reintubated. Son agreed and said he would not want CPR or shock either. Objective Vital Signs: Vital Signs 05/23/18 17:00 05/23/18 17:05 05/23/18 18:00 Temperature Pulse Rate 104 H 104 H 104 H Respiratory Rate 27 H 28 H 22 Blood Pressure 127/65 Pulse Oximetry 95 99 98 05/23/18 18:05 05/23/18 19:00 05/23/18 19:05 Temperature Pulse Rate 102 H 88 Respiratory Rate 26 H 23 Blood Pressure 117/64 102/49 L Pulse Oximetry 100 98 100 05/23/18 19:20 05/23/18 19:21 05/23/18 20:00 Temperature 98.2 F Pulse Rate 103 H 104 H Respiratory Rate 27 H 25 H 25 H Blood Pressure 106/52 L Pulse Oximetry 100 100 05/23/18 20:05 05/23/18 21:00 05/23/18 21:05 Temperature Pulse Rate 100 H 100 H 112 H Respiratory Rate 25 H 24 27 H Blood Pressure 125/68 135/68 Pulse Oximetry 100 98 99 05/23/18 22:03 05/23/18 22:05 05/23/18 23:00 Temperature Pulse Rate 82 100 H Respiratory Rate 24 20 28 H Blood Pressure 106/57 L 106/57 L Pulse Oximetry 100 96 100 05/23/18 23:25 05/24/18 00:05 05/24/18 01:05 Temperature 97.9 F Pulse Rate 99 H 94 H 96 H Respiratory Rate 23 23 18 Blood Pressure 102/61 107/63 Pulse Oximetry 99 100 05/24/18 01:48 05/24/18 02:05 05/24/18 03:05 Temperature Pulse Rate 96 H 102 H Respiratory Rate 27 H 27 H 32 H Blood Pressure 114/66 113/61 Pulse Oximetry 95 97 96 05/24/18 04:00 05/24/18 04:05 05/24/18 04:08 Temperature 97.9 F Pulse Rate 108 H 108 H Respiratory Rate 32 H 29 H 28 H Blood Pressure 115/60 Pulse Oximetry 98 94 L 05/24/18 05:05 05/24/18 06:00 05/24/18 06:05 Temperature Pulse Rate 86 98 H 100 H Respiratory Rate 25 H 23 29 H Blood Pressure 90/52 L 112/63 116/61 Pulse Oximetry 94 L 97 98 05/24/18 07:00 05/24/18 07:05 05/24/18 07:55 Temperature Pulse Rate 88 98 H 96 H Respiratory Rate 25 H 28 H 23 Blood Pressure 119/58 L 120/63 Pulse Oximetry 97 98 100 05/24/18 07:57 05/24/18 08:00 05/24/18 08:05 Temperature 97.3 F L Pulse Rate 93 H 102 H 96 H Respiratory Rate 27 H 26 H 26 H Blood Pressure 118/66 Pulse Oximetry 98 100 100 05/24/18 09:00 05/24/18 09:05 05/24/18 10:00 Temperature Pulse Rate 106 H 100 H 102 H Respiratory Rate 29 H 36 H 28 H Blood Pressure 118/59 L Pulse Oximetry 99 96 98 05/24/18 10:05 05/24/18 11:00 05/24/18 11:05 Temperature Pulse Rate 100 H 106 H 110 H Respiratory Rate 28 H 25 H 28 H Blood Pressure 112/62 126/63 Pulse Oximetry 97 99 99 05/24/18 11:19 05/24/18 12:00 05/24/18 12:05 Temperature 97.9 F Pulse Rate 100 H 112 H 104 H Respiratory Rate 28 H 28 H 29 H Blood Pressure 118/66 Pulse Oximetry 98 98 05/24/18 13:00 05/24/18 13:05 05/24/18 14:00 Temperature Pulse Rate 110 H 116 H 108 H Respiratory Rate 27 H 27 H 29 H Blood Pressure 122/75 Pulse Oximetry 98 98 98 05/24/18 14:05 05/24/18 15:00 05/24/18 15:04 Temperature Pulse Rate 112 H 120 H 109 H Respiratory Rate 39 H 29 H 28 H Blood Pressure 127/56 L Pulse Oximetry 97 100 05/24/18 15:08 Temperature Pulse Rate Respiratory Rate Blood Pressure Pulse Oximetry 100 Intake & Output 05/23/18 05/24/18 05/24/18 18:59 06:59 18:59 Intake Total 204 / 204 1099 / 1099 Output Total 430 / 430 850 / 850 Balance -226 / -226 249 / 249 Weight 81.8 kg 80.3 kg Intake: IV 204 / 204 1099 / 1099 Precedex Inj 400 MCG In NS Inj 104 / 104 100 ML @ 0.2 MCG/KG/HR 4.18 mls /hr IV.CONT TITRATE PRN Rx#: [id number] Inj 1,000 ML @ 42 mls/hr IV 999 / 999 .CONT .[id number] DECLAN Rx#: [id number] Maxipime Inj 2,000 MG In NS Inj 100 / 100 100 / 100 100 ML @ 200 mls/hr IV.SIG Q12H DECLAN Rx#:[id number] Output: Urine Amount (Catheter) 430 / 430 850 / 850 Indwelling Urethral Catheter 430 / 430 850 / 850 Other: Date of Last Bowel Movement 05/21/18 05/23/18 05/23/18 Physical Exam: CONSTITUTIONAL/GENERAL: This is an adequately nourished, elderly, male patient currently on bipap, appears somewhat distressed TUBES/LINES/DRAINS: PIV 2, CVL, [place] catheter, SCDs SKIN: No jaundice, rashes, or lesions. Ecchymoses on upper extremities bilaterally. Skin temperature appropriate. Not diaphoretic. HEAD: Atraumatic. Normocephalic. EYES: No scleral icterus. No injection or drainage. Fundi not examined. NECK: Trachea midline. Supple, nontender. CARDIOVASCULAR: tachycardic, without murmurs, gallops, or rubs. No JVD. Peripheral pulses symmetric, regular. RESPIRATORY/CHEST:bipap. course breath sounds. GASTROINTESTINAL: Abdomen soft, non-tender, nondistended. No hepato-splenomegaly , or palpable masses. No guarding. Bowel sounds present. GENITOURINARY: Without palpable bladder distension. [place] catheter in place. MUSCULOSKELETAL: Extremities without clubbing or cyanosis. No obvious deformities. Trace edema NEUROLOGICAL: appears anxious. cooperative. PSYCHIATRIC: unable to assess d/t clinical status Diagnostic Tests Laboratory: Laboratory Results - last 72 hr 05/21/18 05/21/18 05/22/18 17:10 21:13 00:29 WBC RBC Hgb Hct MCV MCH MCHC RDW Plt Count MPV Sodium Potassium Chloride Carbon Dioxide Anion Gap BUN Creatinine Estimated GFR POC Glucose 199 H 261 H Random Glucose Calcium Prot Corrected Calcium Total Protein Ur Collection Type Urine Color Urine Clarity Urine pH Ur Specific [place] Urine Protein Urine Glucose (UA) Urine Ketones Urine Occult Blood Urine Nitrate Urine Bilirubin Urine Urobilinogen Ur Leukocyte Esterase Urine RBC Urine WBC Ur Squamous Epith Cells Urine Bacteria Granular Casts Micro UA Comment Urine Culture Comments Vancomycin Trough 18.9 H 05/22/18 05/22/18 05/22/18 07:07 07:20 07:20 WBC 6.9 RBC 3.35 L Hgb 11.4 L Hct 32.4 L MCV 96.7 MCH 34.1 H MCHC 35.2 RDW 16.8 Plt Count 130 L MPV 9.7 Sodium 149 H Potassium 3.6 Chloride 111 H Carbon Dioxide 29.8 Anion Gap 8 BUN 48 H Creatinine 1.20 Estimated GFR 58 L POC Glucose 269 H Random Glucose 304 H D Calcium 7.1 L* D Prot Corrected Calcium 7.8 L Total Protein 5.8 L D Ur Collection Type Urine Color Urine Clarity Urine pH Ur Specific Marshall Urine Protein Urine Glucose (UA) Urine Ketones Urine Occult Blood Urine Nitrate Urine Bilirubin Urine Urobilinogen Ur Leukocyte Esterase Urine RBC Urine WBC Ur Squamous Epith Cells Urine Bacteria Granular Casts Micro UA Comment Urine Culture Comments Vancomycin Trough 05/22/18 05/22/18 05/22/18 13:15 14:50 16:31 WBC RBC Hgb Hct MCV MCH MCHC RDW Plt Count MPV Sodium Potassium Chloride Carbon Dioxide Anion Gap BUN Creatinine Estimated GFR POC Glucose 288 H 292 H Random Glucose Calcium Prot Corrected Calcium Total Protein Ur Collection Type Cath Urine Color Yellow Urine Clarity Clear Urine pH 6.0 Ur Specific Marshall 1.020 Urine Protein 100 H Urine Glucose (UA) 500 H Urine Ketones Negative Urine Occult Blood Large H Urine Nitrate Negative Urine Bilirubin Negative Urine Urobilinogen 0.2 Ur Leukocyte Esterase Negative Urine RBC 4-15 H Urine WBC 0-5 Ur Squamous Epith Cells 0-5 Urine Bacteria Occasional H Granular Casts 1-3 H Micro UA Comment Culture indicated Urine Culture Comments Culture indicated Vancomycin Trough 05/22/18 05/23/18 05/23/18 21:32 05:00 05:00 WBC 10.7 D RBC 3.55 L Hgb 12.0 L Hct 34.9 L MCV 98.4 MCH 33.9 MCHC 34.4 RDW 17.1 Plt Count 151 MPV 10.4 Sodium 147 H Potassium 4.1 Chloride 111 H Carbon Dioxide 30.3 Anion Gap 6 BUN 47 H Creatinine 1.30 Estimated GFR 52 L POC Glucose 317 H Random Glucose 370 H Calcium 6.8 L* Prot Corrected Calcium 7.4 L* Total Protein 5.9 L Ur Collection Type Urine Color Urine Clarity Urine pH Ur Specific Marshall Urine Protein Urine Glucose (UA) Urine Ketones Urine Occult Blood Urine Nitrate Urine Bilirubin Urine Urobilinogen Ur Leukocyte Esterase Urine RBC Urine WBC Ur Squamous Epith Cells Urine Bacteria Granular Casts Micro UA Comment Urine Culture Comments Vancomycin Trough 05/23/18 05/23/18 05/23/18 07:52 11:54 16:15 WBC RBC Hgb Hct MCV MCH MCHC RDW Plt Count MPV Sodium Potassium Chloride Carbon Dioxide Anion Gap BUN Creatinine Estimated GFR POC Glucose 343 H 363 H 343 H Random Glucose Calcium Prot Corrected Calcium Total Protein Ur Collection Type Urine Color Urine Clarity Urine pH Ur Specific [place] Urine Protein Urine Glucose (UA) Urine Ketones Urine Occult Blood Urine Nitrate Urine Bilirubin Urine Urobilinogen Ur Leukocyte Esterase Urine RBC Urine WBC Ur Squamous Epith Cells Urine Bacteria Granular Casts Micro UA Comment Urine Culture Comments Vancomycin Trough 05/23/18 05/24/18 05/24/18 22:32 06:10 06:10 WBC 11.4 H RBC 3.54 L Hgb 11.6 L Hct 35.8 L MCV 101.0 H MCH 32.8 MCHC 32.5 RDW 16.1 Plt Count 129 L MPV 9.3 Sodium 148 H Potassium 4.3 Chloride 112 H Carbon Dioxide 30.7 Anion Gap 5 BUN 52 H Creatinine 1.30 Estimated GFR 52 L POC Glucose 312 H Random Glucose 302 H Calcium 6.8 L* Prot Corrected Calcium 7.7 L Total Protein 5.4 L Ur Collection Type Urine Color Urine Clarity Urine pH Ur Specific Marshall Urine Protein Urine Glucose (UA) Urine Ketones Urine Occult Blood Urine Nitrate Urine Bilirubin Urine Urobilinogen Ur Leukocyte Esterase Urine RBC Urine WBC Ur Squamous Epith Cells Urine Bacteria Granular Casts Micro UA Comment Urine Culture Comments Vancomycin Trough 05/24/18 05/24/18 05/24/18 08:20 12:13 16:46 WBC RBC Hgb Hct MCV MCH MCHC RDW Plt Count MPV Sodium Potassium Chloride Carbon Dioxide Anion Gap BUN Creatinine Estimated GFR POC Glucose 245 H 280 H 272 H Random Glucose Calcium Prot Corrected Calcium Total Protein Ur Collection Type Urine Color Urine Clarity Urine pH Ur Specific Marshall Urine Protein Urine Glucose (UA) Urine Ketones Urine Occult Blood Urine Nitrate Urine Bilirubin Urine Urobilinogen Ur Leukocyte Esterase Urine RBC Urine WBC Ur Squamous Epith Cells Urine Bacteria Granular Casts Micro UA Comment Urine Culture Comments Vancomycin Trough Result Diagrams: 05/24/18 06:10 05/24/18 06:10 Microbiology: Microbiology 05/23/18 23:20 Wound Culture - Preliminary Catheter Tip - Central Venous Line No growth in 24 hours 05/22/18 14:35 Aerobic Blood Culture - Preliminary Blood - Peripheral No growth in 2 days Anaerobic Blood Culture - Preliminary No growth in 2 days 05/22/18 14:35 Aerobic Blood Culture - Preliminary Blood - Line No growth in 2 days Anaerobic Blood Culture - Preliminary No growth in 2 days 05/22/18 14:50 Urine Culture - Final Catheterized Urine No growth in 48 hours 05/22/18 14:35 Gram Stain - Final Sputum - Endotracheal Sputum Culture - Final Light growth normal respiratory tiffanie Procedures: 05/16/2018: Intubation 05/16/2018: Left IJ central line 05/24 extubated Assessment and Plan - Disease Oriented Problem List (1) COPD (chronic obstructive pulmonary disease) (2) Adenocarcinoma of lung (3) Acute and chronic respiratory failure with hypoxia (4) AAA (abdominal aortic aneurysm) without rupture (5) Essential hypertension (6) Hyperlipidemia (7) Tobacco use Pertinent Non-Medical Issues: Psychosocial: Patient is originally from [place]. He was 1 of 8 children; all of his siblings are . 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 He moved to [place] approximately 4 years ago. Patient is ; his 4 years ago from Alzheimer's disease. He lives alone, but his son lives locally and helps considerably. 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 Spiritual: [employer] Legal: Unclear if pt capacitated as he is on bipap and has had some precedex however he is able to communicate. Per [place] statutes, in the absence of written advanced directives healthcare proxy decision making falls to the patient's son, Jaziel. Recommend shared decision making Ethical issues impacting care: No known ethical issues impacting care at this time. Important Contacts: Jaziel Ray, son: [phone] Prognosis: Patient is an 87-year-old male who was recently diagnosed with adenocarcinoma of the lungs. He is currently intubated, requiring mechanical ventilation secondary to septic shock. He remains hypotensive requiring Levophed and vasopressin for pressor support. Given patient's advanced age, multiple comorbid conditions and recent acute decline, he is at high risk for complications. . Code Status: No Code DNR Plan: * NO CODE/DNR * Decision-making: Given patient's current clinical condition, he is not clearly capacitated to participate in medical decision making however is able to communicate in limited fashion. Per [place] statutes, in the absence of written advanced directives healthcare proxy decision making falls to the patient's only child, Jaziel Ray. REcommend shared decision making * Discussed patient with bedside nurse * GOALS: previously aggressive, now pt is extubated but on bipap, indicates he does not want to be intubated again; proxy agrees and further agrees to no CPR/ shock. goals seem more comfort oriented at this time * SYMPTOM MANAGEMENT: dyspnea: Recently diagnosed with adenocarcinoma of the lungs in Mar, 2018. Presented to [facility] ED on 05/14/2018 with shortness of breath. extubated this morning, now on bipap sat 96%, tachypneic, tachycardic with poss atrial flutter vs fib. has PRN duonebs, scheduled duoneb, scheduled symbicord, on small precedex drip currently. Control of HR may help breathing; receiving amiodarone, digoxin, lopresser per CCM. pain: Multifactoral. Contributing factors may include recently diagnosed adenocarcinoma of the lung status post radiation therapy, pneumonia, constipation, invasive lines, immobility, intubation. Patient showing no nonverbal signs or symptoms of distress on exam. PRN [place] 5/325 is available every 4 hours PRN for pain scale 1-5; morphine 2 mg IV every 2 hours PRN for pain scale 6-10, last had today at 1439. anxiety: multifactorial, air hunger is contributing factor. Pt appears anxious on exam. on small precedex drip. * recommend PRN ativan, additional morphine for all of the above symptoms. pt has indicated he would like medications over intubation and ventilation * Palliative care will continue to follow this patient throughout his hospitalization to establish trust, assist with symptom management and clarification of medical treatment goals
[2018-05-24] MEDS: Chlorhexidine 0.12% Oral Kit 15 ML UDC OROPHARYNG SCH (17:13)
[2018-05-24] MEDS: Senna/Docusate Sodium 8.6/50 MG Tablet PO SCH (17:17)
[2018-05-24] MEDS: Artificial Tears Opth Drops 15 ML Bottle EACH EYE SCH (17:17)
--- NOTE | 2018-05-24 17:29 | ECG ---
Date Performed: 05/23/2018 Time Performed: 11:46:37 PTAGE: 87 years EKG: SINUS TACHYCARDIA WITH FIRST DEGREE AV BLOCK WITH FREQUENT VENTRICULAR PREMATURE COMPLEXES POSSIBLE LEFT ATRIAL ENLARGEMENT RIGHT BUNDLE BRANCH BLOCK ABNORMAL ECG PREVIOUS TRACING : 05/16/2018 12.27 Since the previous tracing, no significant change noted DOCTOR: Henna Eaton Interpretating Date/Time 05/24/2018 17:28:43
--- NOTE | 2018-05-24 17:37 | XR ---
EXAM DATE: 05/24/2018 5:35 PM EDT AGE/SEX: 87 years / Male INDICATIONS: Respiratory failure. CLINICAL DATA: This is the patient's subsequent encounter. Patient reports that signs and symptoms h ave been present for 2 weeks and indicates a pain score of Nonresponsive. MEDICAL/SURGICAL HISTORY: . Aneurysm, abdominal. Right lung nodule . Tonsillectomy COMPARISON: [facility], CHEST 1V SINGLE AP, 05/22/2018. . FINDINGS: The cardiac silhouette is enlarged in transverse diameter. There are findings of congestive heart shaggy lure with interstitial and alveolar opacity bilaterally. There is prominence of the aortic knob is w ith calcification characteristic of atherosclerotic vascular disease. There is subsegmental atelectas is in the both bases. Moderate size bilateral pleural effusions are identified. CONCLUSION: Cardiomegaly and findings of congestive heart failure. The findings are similar to the prior exam. Electronically signed by: Bonilla العلي MD 05/24/2018 5:36 PM EDT
[2018-05-24] MEDS: SODIUM CHLOR 0.9% IV.CONT PRN (17:42)
[2018-05-24] MEDS: DEXMEDETOMIDINE IV.CONT PRN (17:42)
[2018-05-24] MEDS: Pantoprazole Inj 40 MG Vial IV.PUSH SCH (18:00)
[2018-05-24] MEDS ORDERED: Amiodarone Inj 450 MG in Sodium Chlor 0.9% Inj 241 ML IV.CONT SCH (18:00)
[2018-05-25] MEDS: Dextrose 5% in Water Inj 1,000 ML IV.CONT SCH (02:58)
[2018-05-25] MEDS: DEXMEDETOMIDINE IV.CONT PRN (03:30)
[2018-05-25] MEDS: SODIUM CHLOR 0.9% IV.CONT PRN (03:30)
[2018-05-25 05:02] LABS: Hematocrit 37.8 % (39.0-51.0); Hemoglobin 12.4 gm/dL (13.0-17.0); Mean Corpuscular HGB Conc 32.7 % (32.0-36.0); Mean Corpuscular Volume 100.9 fL (80.0-100.0); Mean Platelet Volume 10.3 fL (7.0-11.0); Platelet Count 123 th/mm3 (150-450); Red Blood Count 3.75 mil/mm3 (4.50-5.90); Red Cell Distribution Width 16.4 % (11.6-17.2); White Blood Count 12.2 th/mm3 (4.0-11.0)
[2018-05-25 05:14] LABS: Potassium 4.5 meq/L (3.5-5.1)
[2018-05-25 05:25] LABS: Calcium 7.3 mg/dL (8.5-10.1)
[2018-05-25] MEDS ORDERED: MethylPREDNISolone Sod Succinate Inj 125 MG/2 ML Vial IV.PUSH STA (07:09)
[2018-05-25] MEDS: Morphine Inj 4 MG/ML Vial IV.PUSH PRN ×2 (07:22→11:30)
[2018-05-25] MEDS ORDERED: Morphine Inj 4 MG/ML Vial IV.PUSH PRN (07:22)
--- NOTE | 2018-05-25 09:24 | P.PNPAL ---
Reason for Visit Reason for visit: a. To assist with evaluation and management of symptoms including: Dyspnea, pain, anxiety b. To assist medical decision maker(s) with: better understanding of current medical conditions; weighing benefits/burdens of medical treatment options; making medical treatment decisions. Subjective Subjective/Interval History: Patient seen today to follow-up on symptom management for dyspnea, pain, anxiety. Patient expressed desire to stop aggressive treatment and proceed with hospice care. He had advised his son that he wished to and at the son's request palliative care was consulted for discussion of hospice care and comfort measures. Patient remained dyspneic, painful and anxious this morning and required morphine and Precedex for symptom management. He describes his pain as epigastric, and generalized. Due to his generalized weakness he describes his pain as "bad" but is unable to provide any numeric scale for that. Nonverbal pain scale indicates occasional grimacing, tears, frowning, wrinkled forehead and seeking attention through movement. He has thus far received morphine, 2 mg IV for dyspnea and pain and is continuing to receive Precedex at 0.6 mcg/kg/h for dyspnea and anxiety pending hospice consultation. He does appear comfortable at this evaluation, resting quietly with his eyes closed. Family is at bedside. Family/Friend Interactions: Spoke with his son, Jaziel and Jaziel's , Rhonda, at bedside who both agree to honor the patient's wishes of comfort and to pass naturally with symptom management. Initial thought was to take him home and allow him to in his own surroundings, however after some discussion, the family came to realize that this would place their loved one at some risk of gaps in care as only oral medications can be delivered at home and as the patient appears to be beginning the active process of dying, it was chosen to transfer him instead to the hospice care center at [place] for end-of-life care, as this would not only provide the patient optimal comfort but the family would also receive support without the burden of providing care. The patient's imminent condition was discussed with hospice admissionsMelody, who has arranged for a visit by hospice admissions nurseKalie, within the hour. . Advance Directives Living Will: Never completed Health Care Surrogate: Never completed Durable Power of Scabbler: Never completed Health Care Surrogate Name and Number: HCP: Jaziel Rya (son) [phone] Significant change in goals:: At this time patient expresses a wish to stop any aggressive care and proceed with a natural and is comfortable with circumstances possible. . Objective Vital Signs: Vital Signs 05/24/18 09:00 05/24/18 09:05 05/24/18 10:00 Temperature Pulse Rate 106 H 100 H 102 H Respiratory Rate 29 H 36 H 28 H Blood Pressure 118/59 L Pulse Oximetry 99 96 98 05/24/18 10:05 05/24/18 11:00 05/24/18 11:05 Temperature Pulse Rate 100 H 106 H 110 H Respiratory Rate 28 H 25 H 28 H Blood Pressure 112/62 126/63 Pulse Oximetry 97 99 99 05/24/18 11:19 05/24/18 12:00 05/24/18 12:05 Temperature 97.9 F Pulse Rate 100 H 112 H 104 H Respiratory Rate 28 H 28 H 29 H Blood Pressure 118/66 Pulse Oximetry 98 98 05/24/18 13:00 05/24/18 13:05 05/24/18 14:00 Temperature Pulse Rate 110 H 116 H 108 H Respiratory Rate 27 H 27 H 29 H Blood Pressure 122/75 Pulse Oximetry 98 98 98 05/24/18 14:05 05/24/18 15:00 05/24/18 15:04 Temperature Pulse Rate 112 H 120 H 109 H Respiratory Rate 39 H 29 H 28 H Blood Pressure 127/56 L Pulse Oximetry 97 100 05/24/18 15:08 05/24/18 18:00 05/24/18 18:20 Temperature Pulse Rate 114 H Respiratory Rate 32 H Blood Pressure 135/70 Pulse Oximetry 100 98 97 05/24/18 18:25 05/24/18 18:30 05/24/18 18:35 Temperature Pulse Rate 92 H 114 H 78 Respiratory Rate 28 H 31 H 27 H Blood Pressure 136/75 125/60 111/54 L Pulse Oximetry 96 98 96 05/24/18 18:40 05/24/18 18:45 05/24/18 18:50 Temperature Pulse Rate 110 H 82 108 H Respiratory Rate 32 H 27 H 33 H Blood Pressure 139/69 129/79 134/68 Pulse Oximetry 97 95 96 05/24/18 18:55 05/24/18 19:00 05/24/18 19:05 Temperature Pulse Rate 108 H 108 H 108 H Respiratory Rate 32 H 35 H 33 H Blood Pressure 129/69 146/67 H 131/67 Pulse Oximetry 96 97 97 05/24/18 19:10 05/24/18 19:15 05/24/18 19:20 Temperature Pulse Rate 108 H 110 H 108 H Respiratory Rate 32 H 33 H 34 H Blood Pressure 138/68 135/67 136/70 Pulse Oximetry 97 96 95 05/24/18 19:25 05/24/18 19:30 05/24/18 19:35 Temperature Pulse Rate 108 H 106 H 104 H Respiratory Rate 33 H 31 H 32 H Blood Pressure 131/66 125/65 125/64 Pulse Oximetry 95 99 96 05/24/18 19:40 05/24/18 19:45 05/24/18 19:50 Temperature Pulse Rate 104 H 104 H 104 H Respiratory Rate 32 H 33 H 32 H Blood Pressure 128/63 122/57 L 124/61 Pulse Oximetry 95 94 L 95 05/24/18 19:55 05/24/18 20:00 05/24/18 20:05 Temperature Pulse Rate 80 105 H 106 H Respiratory Rate 24 30 H 31 H Blood Pressure 118/60 114/56 L 132/62 Pulse Oximetry 94 L 94 L 94 L 05/24/18 20:10 05/24/18 20:15 05/24/18 20:20 Temperature Pulse Rate 76 76 72 Respiratory Rate 25 H 25 H 25 H Blood Pressure 118/59 L 109/56 L 111/59 L Pulse Oximetry 92 L 92 L 92 L 05/24/18 21:20 05/24/18 23:18 05/24/18 23:30 Temperature Pulse Rate 84 Respiratory Rate 28 H Blood Pressure Pulse Oximetry 94 L 98 05/25/18 00:00 05/25/18 03:12 05/25/18 03:16 Temperature 97.6 F Pulse Rate 64 66 Respiratory Rate 27 H 26 H Blood Pressure 116/55 L Pulse Oximetry 98 96 05/25/18 03:40 05/25/18 04:00 05/25/18 05:45 Temperature 97.5 F L Pulse Rate 76 Respiratory Rate 24 Blood Pressure 126/67 Pulse Oximetry 93 L 93 L 92 L 05/25/18 07:00 Temperature Pulse Rate Respiratory Rate Blood Pressure Pulse Oximetry 94 L Intake & Output 05/24/18 05/25/18 05/25/18 18:59 06:59 18:59 Intake Total 100 / 100 1104 / 1104 Output Total 400 / 400 1999 Balance -300 / -300 -896 / -896 Weight 176 lb 5.917 oz Intake: IV 100 / 100 1104 / 1104 Precedex Inj 400 MCG In NS Inj 104 / 104 100 ML @ 0.2 MCG/KG/HR 4.18 mls /hr IV.CONT TITRATE PRN Rx#: [id number] Inj 1,000 ML @ 42 mls/hr IV 1000 / 1000 .CONT .[id number] DECLAN Rx#: [id number] Maxipime Inj 2,000 MG In NS Inj 100 / 100 100 ML @ 200 mls/hr IV.SIG Q12H DECLAN Rx#:[id number] Oral 0 / 0 0 / 0 Output: Urine 400 / 400 Urine Amount (Catheter) 1999 Indwelling Urethral Catheter 1999 Other: Date of Last Bowel Movement 05/23/18 05/23/18 # Bowel Movements 0 Physical Exam: CONSTITUTIONAL/GENERAL: This is an adequately nourished, elderly, male patient resting on nasal cannula, eyes closed, appearing comfortable. TUBES/LINES/DRAINS: PIV 2, CVL, [place] catheter, SCDs SKIN: No jaundice, rashes, or lesions. Ecchymoses on upper extremities bilaterally. Skin temperature appropriate. Not diaphoretic. HEAD: Atraumatic. Normocephalic. EYES: No scleral icterus. No injection or drainage. Fundi not examined. NECK: Trachea midline. Supple, nontender. CARDIOVASCULAR: Bradycardic, regular with a variable rate, without murmurs, gallops, or rubs. No JVD. Peripheral pulses symmetric, regular. surveillance system monitor shows intermittent 2:1 AV block, heart rate 40s with recovery up to 55 bpm intermittently. RESPIRATORY/CHEST: Respirations even, unlabored, lungs diminished with scattered wheezes and rhonchi. GASTROINTESTINAL: Abdomen soft, tender to palpation in the epigastric area, nondistended. No hepato-splenomegaly, or palpable masses. No guarding. Bowel sounds present. GENITOURINARY: Without palpable bladder distension. [place] catheter in place. MUSCULOSKELETAL: Extremities without clubbing or cyanosis. No obvious deformities. Trace edema NEUROLOGICAL: Lethargic, on Precedex. PSYCHIATRIC: Calm, lethargic, not responding to gentle verbal or tactile stimuli. . Diagnostic Tests Laboratory: Laboratory Results - last 72 hr 05/22/18 05/22/18 05/22/18 13:15 14:50 16:31 WBC RBC Hgb Hct MCV MCH MCHC RDW Plt Count MPV Sodium Potassium Chloride Carbon Dioxide Anion Gap BUN Creatinine Estimated GFR POC Glucose 288 H 292 H Random Glucose Calcium Prot Corrected Calcium Total Protein Ur Collection Type Cath Urine Color Yellow Urine Clarity Clear Urine pH 6.0 Ur Specific [place] 1.020 Urine Protein 100 H Urine Glucose (UA) 500 H Urine Ketones Negative Urine Occult Blood Large H Urine Nitrate Negative Urine Bilirubin Negative Urine Urobilinogen 0.2 Ur Leukocyte Esterase Negative Urine RBC 4-15 H Urine WBC 0-5 Ur Squamous Epith Cells 0-5 Urine Bacteria Occasional H Granular Casts 1-3 H Micro UA Comment Culture indicated Urine Culture Comments Culture indicated 05/22/18 05/23/18 05/23/18 21:32 05:00 05:00 WBC 10.7 D RBC 3.55 L Hgb 12.0 L Hct 34.9 L MCV 98.4 MCH 33.9 MCHC 34.4 RDW 17.1 Plt Count 151 MPV 10.4 Sodium 147 H Potassium 4.1 Chloride 111 H Carbon Dioxide 30.3 Anion Gap 6 BUN 47 H Creatinine 1.30 Estimated GFR 52 L POC Glucose 317 H Random Glucose 370 H Calcium 6.8 L* Prot Corrected Calcium 7.4 L* Total Protein 5.9 L Ur Collection Type Urine Color Urine Clarity Urine pH Ur Specific [place] Urine Protein Urine Glucose (UA) Urine Ketones Urine Occult Blood Urine Nitrate Urine Bilirubin Urine Urobilinogen Ur Leukocyte Esterase Urine RBC Urine WBC Ur Squamous Epith Cells Urine Bacteria Granular Casts Micro UA Comment Urine Culture Comments 05/23/18 05/23/18 05/23/18 07:52 11:54 16:15 WBC RBC Hgb Hct MCV MCH MCHC RDW Plt Count MPV Sodium Potassium Chloride Carbon Dioxide Anion Gap BUN Creatinine Estimated GFR POC Glucose 343 H 363 H 343 H Random Glucose Calcium Prot Corrected Calcium Total Protein Ur Collection Type Urine Color Urine Clarity Urine pH Ur Specific [place] Urine Protein Urine Glucose (UA) Urine Ketones Urine Occult Blood Urine Nitrate Urine Bilirubin Urine Urobilinogen Ur Leukocyte Esterase Urine RBC Urine WBC Ur Squamous Epith Cells Urine Bacteria Granular Casts Micro UA Comment Urine Culture Comments 05/23/18 05/24/1818 22:32 06:10 06:10 WBC 11.4 H RBC 3.54 L Hgb 11.6 L Hct 35.8 L MCV 101.0 H MCH 32.8 MCHC 32.5 RDW 16.1 Plt Count 129 L MPV 9.3 Sodium 148 H Potassium 4.3 Chloride 112 H Carbon Dioxide 30.7 Anion Gap 5 BUN 52 H Creatinine 1.30 Estimated GFR 52 L POC Glucose 312 H Random Glucose 302 H Calcium 6.8 L* Prot Corrected Calcium 7.7 L Total Protein 5.4 L Ur Collection Type Urine Color Urine Clarity Urine pH Ur Specific [place] Urine Protein Urine Glucose (UA) Urine Ketones Urine Occult Blood Urine Nitrate Urine Bilirubin Urine Urobilinogen Ur Leukocyte Esterase Urine RBC Urine WBC Ur Squamous Epith Cells Urine Bacteria Granular Casts Micro UA Comment Urine Culture Comments 05/24/18 05/24/18 05/24/18 08:20 12:13 16:46 WBC RBC Hgb Hct MCV MCH MCHC RDW Plt Count MPV Sodium Potassium Chloride Carbon Dioxide Anion Gap BUN Creatinine Estimated GFR POC Glucose 245 H 280 H 272 H Random Glucose Calcium Prot Corrected Calcium Total Protein Ur Collection Type Urine Color Urine Clarity Urine pH Ur Specific [place] Urine Protein Urine Glucose (UA) Urine Ketones Urine Occult Blood Urine Nitrate Urine Bilirubin Urine Urobilinogen Ur Leukocyte Esterase Urine RBC Urine WBC Ur Squamous Epith Cells Urine Bacteria Granular Casts Micro UA Comment Urine Culture Comments 05/24/18 05/25/18 05/25/18 20:28 04:35 04:35 WBC RBC Hgb Hct MCV MCH MCHC RDW Plt Count MPV Sodium 147 H Potassium 4.5 Chloride 109 H Carbon Dioxide 29.0 Anion Gap 9 BUN 56 H Creatinine 1.40 H 1.50 H Estimated GFR 48 L 44 L POC Glucose 259 H Random Glucose 241 H Calcium 7.3 L* Prot Corrected Calcium 7.9 L Total Protein 6.0 L D Ur Collection Type Urine Color Urine Clarity Urine pH Ur Specific [place] Urine Protein Urine Glucose (UA) Urine Ketones Urine Occult Blood Urine Nitrate Urine Bilirubin Urine Urobilinogen Ur Leukocyte Esterase Urine RBC Urine WBC Ur Squamous Epith Cells Urine Bacteria Granular Casts Micro UA Comment Urine Culture Comments 05/25/18 05/25/18 04:35 08:38 WBC 12.2 H RBC 3.75 L Hgb 12.4 L Hct 37.8 L MCV 100.9 H MCH 33.0 MCHC 32.7 RDW 16.4 Plt Count 123 L MPV 10.3 Sodium Potassium Chloride Carbon Dioxide Anion Gap BUN Creatinine Estimated GFR POC Glucose 240 H Random Glucose Calcium Prot Corrected Calcium Total Protein Ur Collection Type Urine Color Urine Clarity Urine pH Ur Specific [place] Urine Protein Urine Glucose (UA) Urine Ketones Urine Occult Blood Urine Nitrate Urine Bilirubin Urine Urobilinogen Ur Leukocyte Esterase Urine RBC Urine WBC Ur Squamous Epith Cells Urine Bacteria Granular Casts Micro UA Comment Urine Culture Comments Result Diagrams: 05/25/18 04:35 05/25/18 04:35 Microbiology: Microbiology 05/23/18 23:20 Wound Culture - Preliminary Catheter Tip - Central Venous Line No growth in 24 hours 05/22/18 14:35 Aerobic Blood Culture - Preliminary Blood - Peripheral No growth in 2 days Anaerobic Blood Culture - Preliminary No growth in 2 days 05/22/18 14:35 Aerobic Blood Culture - Preliminary Blood - Line No growth in 2 days Anaerobic Blood Culture - Preliminary No growth in 2 days 05/22/18 14:50 Urine Culture - Final Catheterized Urine No growth in 48 hours 05/22/18 14:35 Gram Stain - Final Sputum - Endotracheal Sputum Culture - Final Light growth normal respiratory tiffanie Imaging: ITS Impressions Chest X-Ray 05/16/18 00:00 CONCLUSION: 1. Left IJ central line tip in the proximal SVC without pneumothorax. 2. 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 Chest X-Ray 05/16/18 13:04 CONCLUSION: 1. ETT in good position. 2. Persistent moderate left pleural effusion and associated airspace consolidation in the right lower lung zone. 3. Mild left lower lung zone airspace disease, likely atelectasis. Chest X-Ray 05/17/18 06:00 CONCLUSION: Increasing right pleural effusion. Persistent consolidation right lung and increasing infiltrates in the left lung. Chest X-Ray 05/20/18 05:00 CONCLUSION: No significant change. Chest X-Ray 05/22/18 00:00 CONCLUSION: Support apparatus unchanged. Cardiomegaly. Bilateral airspace disease and pleural effusions similar to May 20. Chest X-Ray 05/24/18 16:53 CONCLUSION: Cardiomegaly and findings of congestive heart failure. The findings are similar to the prior exam. Procedures: 05/16/2018: Intubation 05/16/2018: Left IJ central line 7/10 extubated Assessment and Plan - Disease Oriented Problem List (1) COPD (chronic obstructive pulmonary disease) (2) Adenocarcinoma of lung (3) Acute and chronic respiratory failure with hypoxia (4) AAA (abdominal aortic aneurysm) without rupture (5) Essential hypertension (6) Hyperlipidemia (7) Tobacco use Pertinent Non-Medical Issues: Psychosocial: Patient is originally from [place]. He was 1 of 8 children; all of his siblings are . 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 He moved to [place] approximately 4 years ago. Patient is ; his 4 years ago from Alzheimer's disease. He lives alone, but his son lives locally and helps considerably. 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 Spiritual: [employer] Legal: Unclear if pt capacitated as he is on bipap and has had some precedex however he is able to communicate. Per [place] statutes, in the absence of written advanced directives healthcare proxy decision making falls to the patient's son, Jaziel. Recommend shared decision making Ethical issues impacting care: No known ethical issues impacting care at this time. Important Contacts: Jaziel Ray, son: [phone] Prognosis: Patient is an 87-year-old male who was recently diagnosed with adenocarcinoma of the lungs. He is currently extubated, on nasal cannula, requiring Precedex and morphine for symptom management of dyspnea, anxiety and pain. Patient is stating a wish to and family is comfortable with honoring his wishes. Pending admission to hospice and transferred to hospice care center for end-of- life care and symptom management. . Code Status: No Code DNR Plan: * NO CODE/DNR * Decision-making: Given patient's current clinical condition, he is not clearly capacitated to participate in medical decision making however is able to communicate in limited fashion. Per [place] statutes, in the absence of written advanced directives healthcare proxy decision making falls to the patient's only child, Jaziel Ray. REcommend shared decision making * Discussed patient with bedside nurse * GOALS: previously aggressive, now pt is extubated but on bipap, indicates he does not want to be intubated again; proxy agrees and further agrees to no CPR/ shock. goals seem more comfort oriented at this time SYMPTOM MANAGEMENT: * dyspnea: Recently diagnosed with adenocarcinoma of the lungs in Mar, 2018. Presented to [place] ED on 05/14/2018 with shortness of breath. extubated this morning, now on nasal cannula, requesting no more aggressive care. He is asking to be allowed to naturally in as comfortable as surrounding is possible. * pain: Multifactoral. Contributing factors may include recently diagnosed adenocarcinoma of the lung status post radiation therapy, pneumonia, constipation, invasive lines, immobility, intubation. Patient showing no nonverbal signs or symptoms of distress on exam. PRN [place] 5/325 is available every 4 hours PRN for pain scale 1-5; morphine 2 mg IV every 4 hours PRN for pain scale 1-5, morphine 4 mg IV every 4 hours PRN for pain scale 6-10, last had 2 mg today at 07:22 and remains on a Precedex drip at 0.6 mcg/kg/h. anxiety: multifactorial, air hunger is contributing factor. Remaining on Precedex drip for symptom control pending hospice consultation. * recommend PRN ativan, additional morphine for all of the above symptoms. pt has indicated he would like medications over intubation and ventilation and at this time is requesting to be allowed to . * Palliative care will continue to follow this patient throughout his hospitalization to establish trust, assist with symptom management and clarification of medical treatment goals Attestation Attestation: To help prompt me to consider important information that might be impacting today's encounter and assessment, information from prior notes written by myself or my colleagues may have been "brought forward" into today's note. My signature on this note, however, is an attestation that I personally performed the exam, history, and/or decision-making noted today, and, unless otherwise indicated, the interactions with patient, family, and staff as well as the review of records all occurred today. I also attest that the listed assessment and stated plan reflect my best clinical judgment today based on the combination of historical information, prior notes, and today's exam/ interactions. When time spent is documented, it refers only to time spent today by the signer, or if indicated, combined time spent today by collaborating physician/nurse practitioner. .
[2018-05-25] MEDS: Insulin NovoLIN Regular Correctional Sugar Inj SQ SCH (10:45)
--- NOTE | 2018-05-25 18:12 | P.DS ---
Date of admission: 05/14/18 21:51 Primary care physician: Salvador Figueroa MD Brief History from admission: This is a 87-year-old male. Date of admission 05/14/2018. Past medical history includes COPD, did a course of the lung, AAA, glaucoma, osteoarthritis and stable AAA. 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 He has recently received radiation therapy by Dr. allen. He is followed by Dr. Cherry pulmonology. He was in the [facility] on 05/14 with acute onset of shortness of breath. He denies coughing/productive, congestion, fevers or chills. Denies chest pain. CT angiogram revealed no pulmonary embolism. Right upper lobe mass identified. Possible postobstructive pneumonia versus radiation pneumonitis. Patient receives norepinephrine drip to maintain mean atrial pressure and 65. Started on vancomycin, cefepime and azithromycin. DS: Diagnosis - Discharge Diagnosis (1) Hyperlipidemia Status: Chronic (2) Essential hypertension Status: Acute (3) AAA (abdominal aortic aneurysm) without rupture Status: Chronic (4) Adenocarcinoma of lung Status: Chronic (5) Acute and chronic respiratory failure with hypoxia Status: Acute (6) Tobacco use Status: Chronic (7) COPD (chronic obstructive pulmonary disease) Status: Chronic DS: Summary Hospital Course: 05/16: This is a 87-year-old male. Date of admission 05/14/2018. Past medical history includes COPD, did a course of the lung, AAA, glaucoma, osteoarthritis and stable AAA. 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 He has recently received radiation therapy by Dr. allen. He is followed by Dr. Cherry pulmonology. He was in the [facility] on 05/14 with acute onset of shortness of breath. He denies coughing/productive, congestion, fevers or chills. Denies chest pain. CT angiogram revealed no pulmonary embolism. Right upper lobe mass identified. Possible postobstructive pneumonia versus radiation pneumonitis. Patient receives norepinephrine drip to maintain mean atrial pressure and 65. Started on vancomycin, cefepime and azithromycin. 05/17: Remains sedated, orally intubated on mechanical ventilation. On Levophed/ vasopressin for pressor support. 05/18: no changes. remains on vasopressors. remains critically ill, intubated, sedated. Son is at bedside and states he understands how sick his father is but "chooses to remain hopefully optimistic". 05/19: no improvements. remains on vasopressors. mental status not improved. 05/20: fio2 rising. cxr with worsening pulmonary edema. still intermittently on vasopressors. failing cpap. no clinical improvements. 05/21: Remains sedated/encephalopathic, orally intubated on mechanical ventilation. 05/22: Sedated with Precedex, arousable, orally intubated on mechanical ventilation. Tolerated CPAP trial with +10//5 for 2 hours. 05/23: Sedated with Precedex, orally intubated on mechanical ventilation. Tolerating tube feeds. 05/24: Much more awake. Orally intubated on mechanical ventilation. Tolerated CPAP trial yesterday. Tolerating tube feeds. Patient extubated to nasal cannula. Subsequently required to be BiPAP at night and went into A. fib with RVR for which required amiodarone infusion. Assessment: 87yM with lung adenocarcinoma presents with acute hypoxic and hypercarbic respiratory failure, post-obstructive pneumonia, and associated septic shock. Clinically not improving: remains critically ill with little if any progress or improvements in last few days. Son continues to press on with aggressive measures at this time. Continue vasopressors and antibiotics for his shock. remains critical despite maximal therapy. now will be forced to diurese given volume overload despite shock. very critically ill. Neuro/Psych: Acute metabolic encephalopathy Sedation while intubated. versed, fentanyl. daily sedation vacations goal RASS -2 off propofol due to hypotension. Acetaminophen 650 mg by mouth every 6 hours for Fever Hydrocodone/acetaminophen 5/325 one tab every 4 hours as needed pain 1 through 5 Morphine sulfate 2 mg IV every 2 hours as needed pain 6 -10 CV: Septic Shock, persistent. Hyperlipidemia Coronary artery disease Holding home medications of ramipril 5 mg daily and lovastatin 10 mg daily. Limited 2D echocardiogram revealed ejection fraction 55%. continue Levophed for goal map > 60 - renal function is improving and peripheral perfusion is compromised with rising vasopressors: must drop map goal from 65 to 60 to mitigate vasoconstriction. Resp: Acute hypoxic and hypercarbic respiratory failure, persistent Pulmonary Edema Lung CA Intubated and placed on mechanical ventilation on 05/16 Albuterol/ipratropium aerosols every 4 hours with albuterol aerosols every 2 hours as needed dyspnea budesonide/formoterol 160/4.5 2 puffs twice daily Consultation pulmonology/Dr. Cherry CT pulmonary angiogram revealed no evidence of pulmonary embolism. Right perihilar/peribronchial mass consistent with patient's known lung carcinoma is noted. Patchy infiltrates are noted within the lower lobes bilaterally consistent with probable pneumonia. Central bronchiectasis is noted bilaterally. Cardiomegaly and coronary artery calcifications. Cholelithiasis. Degenerative changes and kyphosis of the thoracic spine are noted. daily SBTs. wean fio2 for goal spo2 > 88% lasix 40mg iv x 1 with concentrated albumin Tolerating CPAP trials. Will discuss with pulmonary regarding possible extubation. GI: Cholelithiasis Acute protein calorie malnutrition- severe Tube feeds of Jevity 1.5 starting at 20 cc an hour. If pressor requirement decreases will consider advancing to goal, but pressor requirement remains today. Pantoprazole for GI prophylaxis Docusate sodium/senna 1 tablet twice daily for bowel regimen : No indication for [place] catheter Endo: Hyperglycemia SSI to maintain euglycemia Renal: Creatinine currently within normal limits daily BMP Heme: History of adenocarcinoma the lung status post radiation therapy by Dr. Allen Macrocytic anemia Elevated PTT PET scan 03/2018 revealed 3 cm right upper lobe mass. Cytology revealed poorly differentiated adenocarcinoma. Monitor CBC daily. Follow trends ID: Likely community acquired pneumonia Day 97 vancomycin, cefepime and azithromycin Blood cultures 2: Results NGTD Negative urine Legionella pneumococcal antigens Influenza a and B and sputum ordered MSK: Kyphosis of thoracic spine Osteoarthritis PT evaluate and treat FEN: Hyponatremia Replace electrolytes as clinically indicated Access -Central line placed 05/16 Prophylaxis- GI -pantoprazole -DVT -SCD/enoxaparin Patient decided he wanted to be a DNR status and did not want reintubation of his respiratory status declined. 05/25: Spoke with patient's son who agrees with DNR status and is wanting hospice. Palliative care and found hospice consult requested and patient was subsequently discharged to [facility] hospice facility - Time Spent with Patient Total time spent providing and/or coordinating discharge services: Exam Vital signs: Vital Signs 05/24/18 18:00 05/24/18 18:20 05/24/18 18:25 Temperature Pulse Rate 114 H 92 H Respiratory Rate 32 H 28 H Blood Pressure 135/70 136/75 Pulse Oximetry 98 97 96 05/24/18 18:30 05/24/18 18:35 05/24/18 18:40 Temperature Pulse Rate 114 H 78 110 H Respiratory Rate 31 H 27 H 32 H Blood Pressure 125/60 111/54 L 139/69 Pulse Oximetry 98 96 97 05/24/18 18:45 05/24/18 18:50 05/24/18 18:55 Temperature Pulse Rate 82 108 H 108 H Respiratory Rate 27 H 33 H 32 H Blood Pressure 129/79 134/68 129/69 Pulse Oximetry 95 96 96 05/24/18 19:00 05/24/18 19:05 05/24/18 19:10 Temperature Pulse Rate 108 H 108 H 108 H Respiratory Rate 35 H 33 H 32 H Blood Pressure 146/67 H 131/67 138/68 Pulse Oximetry 97 97 97 05/24/18 19:15 05/24/18 19:20 05/24/18 19:25 Temperature Pulse Rate 110 H 108 H 108 H Respiratory Rate 33 H 34 H 33 H Blood Pressure 135/67 136/70 131/66 Pulse Oximetry 96 95 95 05/24/18 19:30 05/24/18 19:35 05/24/18 19:40 Temperature Pulse Rate 106 H 104 H 104 H Respiratory Rate 31 H 32 H 32 H Blood Pressure 125/65 125/64 128/63 Pulse Oximetry 99 96 95 05/24/18 19:45 05/24/18 19:50 05/24/18 19:55 Temperature Pulse Rate 104 H 104 H 80 Respiratory Rate 33 H 32 H 24 Blood Pressure 122/57 L 124/61 118/60 Pulse Oximetry 94 L 95 94 L 05/24/18 20:00 05/24/18 20:05 05/24/18 20:10 Temperature Pulse Rate 105 H 106 H 76 Respiratory Rate 30 H 31 H 25 H Blood Pressure 114/56 L 132/62 118/59 L Pulse Oximetry 94 L 94 L 92 L 05/24/18 20:15 05/24/18 20:20 05/24/18 21:20 Temperature Pulse Rate 76 72 Respiratory Rate 25 H 25 H Blood Pressure 109/56 L 111/59 L Pulse Oximetry 92 L 92 L 94 L 05/24/18 23:18 05/24/18 23:30 05/25/18 00:00 Temperature 97.6 F Pulse Rate 84 64 Respiratory Rate 28 H 27 H Blood Pressure 116/55 L Pulse Oximetry 98 98 05/25/18 03:12 05/25/18 03:16 05/25/18 03:40 Temperature Pulse Rate 66 Respiratory Rate 26 H Blood Pressure Pulse Oximetry 96 93 L 05/25/18 04:00 05/25/18 05:45 05/25/18 07:00 Temperature 97.5 F L Pulse Rate 76 56 L Respiratory Rate 24 41 H Blood Pressure 126/67 Pulse Oximetry 93 L 92 L 93 L 05/25/18 07:59 05/25/18 08:00 05/25/18 08:59 Temperature Pulse Rate 50 L 64 54 L Respiratory Rate 27 H 29 H 29 H Blood Pressure 114/41 L 91/40 L Pulse Oximetry 96 96 97 05/25/18 09:00 05/25/18 09:55 05/25/18 09:59 Temperature 97.8 F Pulse Rate 56 L 62 Respiratory Rate 30 H 38 H Blood Pressure 109/46 L Pulse Oximetry 97 98 05/25/18 10:00 05/25/18 10:59 05/25/18 11:00 Temperature Pulse Rate 48 L 48 L 54 L Respiratory Rate 39 H 33 H 36 H Blood Pressure 108/43 L Pulse Oximetry 97 98 99 Intake & Output 05/24/18 05/25/18 05/25/18 18:59 06:59 18:59 Intake Total 100 / 100 1104 / 1104 Output Total 400 / 400 1999 450 / 450 Balance -300 / -300 -896 / -896 -450 / -450 Weight 80 kg Intake: IV 100 / 100 1104 / 1104 Precedex Inj 400 MCG In NS Inj 104 / 104 100 ML @ 0.2 MCG/KG/HR 4.18 mls /hr IV.CONT TITRATE PRN Rx#: [id number] D5W Inj 1,000 ML @ 42 mls/hr IV 1000 / 1000 .CONT .[id number] DECLAN Rx#: [id number] Maxipime Inj 2,000 MG In NS Inj 100 / 100 100 ML @ 200 mls/hr IV.SIG Q12H DECLAN Rx#:[id number] Oral 0 / 0 0 / 0 Output: Urine 400 / 400 Urine Amount (Catheter) 1999 450 / 450 Indwelling Urethral Catheter 1999 450 / 450 Other: Date of Last Bowel Movement 0705/23/18 05/23/18 # Bowel Movements 0 Narrative: HEENT/Neuro: Pallor present. no icterus, tongue moist, CHRISTIANO, Awake oriented 1 , nonfocal grossly, moving all 4 extremities Neck: No JVD Chest/pulmonary: Scattered rhonchi bilaterally Cardiovascular: S1-S2 irregularly irregular no gallop or murmur GI/abdomen: Soft, nontender, bowel sounds present Extremities: Warm bilaterally, trace edema Results Procedures completed during hospitalization: central line intubation Labs on day of discharge: Labs from last 24 hours 05/25/18 05/25/18 05/25/18 08:38 04:35 04:35 WBC 12.2 H RBC 3.75 L Hgb 12.4 L Hct 37.8 L MCV 100.9 H MCH 33.0 MCHC 32.7 RDW 16.4 Plt Count 123 L MPV 10.3 Sodium Potassium Chloride Carbon Dioxide Anion Gap BUN Creatinine 1.50 H Estimated GFR 44 L POC Glucose 240 H Random Glucose Calcium Prot Corrected Calcium Total Protein 05/25/18 05/24/18 04:35 20:28 WBC RBC Hgb Hct MCV MCH MCHC RDW Plt Count MPV Sodium 147 H Potassium 4.5 Chloride 109 H Carbon Dioxide 29.0 Anion Gap 9 BUN 56 H Creatinine 1.40 H Estimated GFR 48 L POC Glucose 259 H Random Glucose 241 H Calcium 7.3 L* Prot Corrected Calcium 7.9 L Total Protein 6.0 L D Preliminary micro results at discharge 05/22/18 14:35 Aerobic Blood Culture - Preliminary Blood - Peripheral No growth in 3 days Anaerobic Blood Culture - Preliminary No growth in 3 days 05/22/18 14:35 Aerobic Blood Culture - Preliminary Blood - Line No growth in 3 days Anaerobic Blood Culture - Preliminary No growth in 3 days - Impressions ITS Impressions Chest X-Ray 05/24/18 16:53 CONCLUSION: Cardiomegaly and findings of congestive heart failure. The findings are similar to the prior exam. Discharge Plan - Discharge Disposition Patient Disposition: 51 Hospice/Med Facility - Physicians Team Primary Care Provider: Salvador Figueroa Attending Provider: Atul Kirby Other Providers: Aaron Douglass MD ; Gil Kwan MD
== END 2018-05-25 13:46 | disposition hospice, inpatient (51) ==
LOC: PHEDA 19:20 → PREINTOOBSV 21:58 → PHICU 23:05
PROVIDERS: ADMIT Internal Medicine Critical Care Medicine; ATTEND Internal Medicine Critical Care Medicine